=== PATIENT | female | born 1990 | race Caucasian/White ===

== ENCOUNTER 2016-04-27 12:09 | Outpatient (CLI) | payer BC, MEDICAID ==
--- NOTE | 2016-04-27 13:42 | Non Stress Test Report ---
Non Stress Test Datetime Report Generated by CPN: 04/27/2016 13:42 DEMOGRAPHIC Test Number: 1 EGA NST: 38.1 INDICATION Indication for Study: Ordered by Provider MONITORING Monitor Explained: Monitor Explained; Test Explained; Patient Verbalized Understanding Time on Monitor: 04/27/2016 12:26 Time off Monitor: 04/27/2016 13:32 NST Duration: 66 NST INTERVENTIONS NST Interventions: PO Hydration Physician Notified NST: K. Collins, CNM BABY A: [id number] BABY A Movement : Present Contraction Frequency : Occasional FHR Baseline : 130 Accelerations : 15X15 Decelerations : None Variability : Moderate 6-25bpm NST Review: Meets Criteria for Reactive NST NST Review and Verified By : Cliff Post RN NST Results: Reactive NST REPORT Report Trigger: Send Report
== END 2016-04-27 13:37 | disposition home or self-care (01) ==
LOC: LC 12:09
PROVIDERS: ATTEND Specialist
PROC: 4A1HXCZ Monitoring of Products of Conception, Cardiac Rate, External Approach (ICD-10-PCS; principal; 2016-04-27)
DX: O47.1 False labor at or after 37 completed weeks of gestation (principal); Z3A.38 38 weeks gestation of pregnancy
CPT/HCPCS: 59025

== ENCOUNTER 2016-05-09 22:26 | Outpatient (CLI) | payer BC, MEDICAID ==
[2016-05-09 22:52] LABS: APPEARANCE,URINE CLEAR; BILIRUBIN,URINE NEGATIVE (NEGATIVE); GLUCOSE, URINE NEGATIVE (NEGATIVE); KETONES,URINE NEGATIVE (NEGATIVE); LEUKOCYTE ESTERASE,URINE NEGATIVE (NEGATIVE); NITRITE,URINE NEGATIVE (NEGATIVE); PROTEIN,URINE NEGATIVE (NEGATIVE); URINE SPECIFIC GRAVITY 1.006; UROBILINOGEN,URINE NEGATIVE mg/dL (<2.0)
[2016-05-09 23:08] LABS: URINE BARBITURATES SCREEN NEGATIVE; URINE METHADONE SCREEN NEGATIVE; URINE OPIATES LOW NEGATIVE; URINE PHENCYCLIDINE SCREEN NEGATIVE
--- NOTE | 2016-05-10 00:15 | Non Stress Test Report ---
Non Stress Test Datetime Report Generated by CPN: 05/10/2016 00:15 DEMOGRAPHIC EGA NST: 39.6 INDICATION Indication for Study: Other Indication for Study (NST) Other: LC URINE RESULTS Urine Protein, NST: Negative Urine Ketones - NST: Negative Urine Glucose - NST: Negative Urine Blood - NST: Positive MONITORING Monitor Explained: Monitor Explained; Test Explained; Patient Verbalized Understanding Time on Monitor: 05/09/2016 22:45 Time off Monitor: 05/09/2016 23:45 NST Duration: 60 NST INTERVENTIONS NST Interventions: PO Hydration Physician Notified NST: Dr. Bedoya BABY A: [id number] BABY A Movement : Present Contraction Frequency : 4-6 FHR Baseline : 125 Accelerations : 15X15 Decelerations : None Variability : Moderate 6-25bpm NST Review: Meets Criteria for Reactive NST NST Review and Verified By : Ludwin Weaver RN NST Results: Reactive NST REPORT Report Trigger: Send Report
--- NOTE | 2016-05-10 04:45 | L&D Flow Sheet ---
LD Flowsheet Datetime Report Generated by CPN: 05/10/2016 04:45 Datetime: 05/09/2016 23:57 Communication Comments: pt. d/c to home at this time. See discharge summary for more information (Ирина Woodward, RN) Datetime: 05/09/2016 23:50 Communication Comments: Care notes taught and reviewed on kick counts and term labor instructions. Pt. able to perform teachback with no difficulties noted. Pt. denies any questions or concerns at this time (Ирина Woodward, RN) Datetime: 05/09/2016 23:45 Uterine Activity Monitor Mode: External (Ирина Trace, RN) Frequency (min): 4 (Ирина Trace, RN) Quality: Mild (Ирина Trace, RN) Duration (sec): 50-70 (Ирина Trace, RN) Duration Criteria: Less than Two 120 Second Contractions (Ирина Trace, RN) Pattern: Normal: <= 5 Contractions in 10 Minutes (Ирина Trace, RN) Resting Tone (Palpate): Relaxed (Ирина Trace, RN) Assessment A Monitor Mode: External US (Ирина Trace, RN) FHR Baseline Rate : 125 (Ирина Trace, RN) Variability: Moderate 6-25 bpm (Ирина Trace, RN) Accelerations: 15X15 (Ирина Trace, RN) Decelerations: None (Ирина Trace, RN) Communication Comments: pt. made aware of POC at this time. Second SVE deferred. Pt. denies need for pain medication at this time (Ирина Trace, RN) Datetime: 05/09/2016 23:34 Vital Signs Stage of : OB Triage (Ирина Trace, RN) Provider Reviewed Strip: Yes (Ирина Trace, RN) Communication Communication: Call/Page Placed to Provider (Ирина Woodward RN) Communication Comments: Dr. Bedoya called and notified regarding pt. arrival, hx, c/o, urine results, fht, toco tracing, and sve. New orders recieved that pt. may d/c to home with vistaril 50 mg po x1 dose if she desires. (Ирина Woodward RN) Datetime: 05/09/2016 23:15 Uterine Activity Monitor Mode: External; Palpation (Ирина Woodward, RN) Frequency (min): 5-6 (Ирина Woodward, RN) Quality: Mild (Ирина Woodward, RN) Duration (sec): 60-80 (Ирина Woodward RN) Duration Criteria: Less than Two 120 Second Contractions (Ирина Trace, RN) Pattern: Normal: <= 5 Contractions in 10 Minutes (Ирина Trace, RN) Resting Tone (Palpate): Relaxed (Ирина Trace, RN) Assessment A Monitor Mode: External US (Ирина Trace, RN) FHR Baseline Rate : 125 (Ирина Trace, RN) Variability: Moderate 6-25 bpm (Ирина Trace, RN) Accelerations: 15X15 (Ирина Trace, RN) Decelerations: None (Ирина Trace, RN) Datetime: 05/09/2016 22:49 Maternal Assessment Level of Consciousness: Fully Conscious (Ирина Trace, RN) DTR's/Clonus: DTRs 2+; No Clonus (Ирина Trace, RN) Headache: Denies (Ирина Trace, RN) Breath Sounds, Left: Clear and Equal (Ирина Trace, RN) Breath Sounds, Right: Clear and Equal (Ирина Trace, RN) Nausea/Vomiting: Denies (Ирина Trace, RN) RUQ Epigastric Pain: Denies (Ирина Trace, RN) Datetime: 05/09/2016 22:48 Contraction Comments: pt. reports one ctn noted here (Ирина Trace, RN) Datetime: 05/09/2016 22:47 NBP Sys/Erica/Mean (mmHg): 122 (QS system process) : 82 (QS system process) : 96 (QS system process) Pulse: 92 (QS system process) Temperature (F): 98.2 (Ирина Trace, RN) Temperature (C): 36.8 (QS system process) Temperature Route: Oral (Ирина Woodward, YIN) Teaching Instructional Method: Verbal; Patient Instructed (Ирина Woodward RN) Plan of Care: Plan of Care Discussed (Ирина Woodward RN) Unit Routine: [facility] to Room; Call Pollock; Bed; Visiting Policy (Ирина Woodward RN) Labor/Induction: Labor Stages (Ирина Woodward RN) LaborFlag: OB Triage (QS system process) Datetime: 05/09/2016 22:45 Pain Pain Scale: 2 (Ирина Woodward RN) Pain Presence: Intermittent (Ирина Woodward RN) Pain Type: Contraction (Ирина Woodward RN) Pain Location: Abdomen (Ирина Woodward, RN) Patient Care Patient Position/Activity: Left Lateral (Ирина Woodward RN) I/O Interventions: Clear Liquids Given (Иирна Woodward RN) Patient Care Comments: pt. came in c/o ctn's Q5 since 1699 reports pain 1.5/5 with ctn's (Ирина Woodward, YIN) Teaching Instructional Method: Verbal; Patient Instructed (Ирина Woodward RN) Plan of Care: Plan of Care Discussed (Ирина Woodward RN) Unit Routine: [facility] to Room; Call Pollock; Bed (Ирина Woodward RN) Labor/Induction: Labor Stages (Ирина Woodward RN) LaborFlag: OB Triage (QS system process) Datetime: 05/09/2016 22:42 Vaginal Exam Dilatation (cm): 1.0 (Ирина Trace, RN) Effacement (%): 80 (Ирина Trace, RN) Station: -2 (Ирина Trace, RN) Exam by: Jeff Woodward RN (Ирина Trace, RN) Vaginal Bleeding: None (Ирина Trace, RN) Cervix, Consistency: Soft (Ирина Trace, RN) Cervix, Position: Posterior (Ирина Trace, RN) Vaginal Exam Comments: bollatable, palp bag (Ирина Trace, RN) Datetime: 05/09/2016 22:40 Vital Signs Stage of : OB Triage (Ирина Woodward, YIN)
--- NOTE | 2016-05-10 04:46 | L&D Admission Assessment ---
LD ADM ASMT Datetime Report Generated by CPN: 05/10/2016 04:45 PATIENT ASSESSMENT Assessment Type: Triage (05/09/2016 22:49:Ирина Trace, RN) WEIGHT Weight (lb): 174 (05/09/2016 23:57:QS system process) Weight (lb): 174 (05/09/2016 22:37:QS system process) Weight (lb): 174 (05/09/2016 22:36:QS system process) Weight (kg): 79.1 (05/09/2016 23:57:QS system process) Weight (kg): 79.1 (05/09/2016 22:37:QS system process) Weight (kg): 79.1 (05/09/2016 22:36:QS system process) Total Wt Gain (lb): 28 (05/09/2016 23:57:QS system process) Total Wt Gain (lb): 28 (05/09/2016 22:37:QS system process) Total Wt Gain (lb): 28 (05/09/2016 22:36:QS system process) Wt Gain (kg): 12.6 (05/09/2016 23:57:QS system process) Wt Gain (kg): 12.6 (05/09/2016 22:37:QS system process) Wt Gain (kg): 12.6 (05/09/2016 22:36:QS system process) BMI: 29.9 (05/09/2016 23:57:QS system process) BMI: 29.9 (05/09/2016 22:37:QS system process) BMI: 30.8 (05/09/2016 22:36:QS system process) PAIN Pain Scale: 2 (05/09/2016 22:45:Ирина Woodward RN) Pain Presence: Intermittent (05/09/2016 22:45:Ирина Woodward RN) Pain Type: Contraction (05/09/2016 22:45:Ирина Woodward RN) Pain Location: Abdomen (05/09/2016 22:45:Ирина Woodward RN) CONTRACTIONS Frequency (min): 4 (05/09/2016 23:45:Ирина Trace, RN) Frequency (min): 5-6 (05/09/2016 23:15:Ирина Trace, RN) Duration (sec): 50-70 (05/09/2016 23:45:Ирина Trace, RN) Duration (sec): 60-80 (05/09/2016 23:15:Ирина Trace, RN) Quality: Mild (05/09/2016 23:45:Ирина Trace, RN) Quality: Mild (05/09/2016 23:15:Ирина Trace, RN) Pattern: Normal: <= 5 Contractions in 10 Minutes (05/09/2016 23:45:Ирина Trace, RN) Pattern: Normal: <= 5 Contractions in 10 Minutes (05/09/2016 23:15:Ирина Trace, RN) Resting Tone [place]: Relaxed (05/09/2016 23:45:Ирина Rtace, RN) Resting Tone [place]: Relaxed (05/09/2016 23:15:Ирина Trace, RN) Contraction Comments: pt. reports one ctn noted here (05/09/2016 22:48:Ирина Trace, RN) VAGINAL EXAM Dilatation (cm): 1.0 (05/09/2016 22:42:Ирина Trace, RN) Effacement (%): 80 (05/09/2016 22:42:Ирина Trace, RN) Station: -2 (05/09/2016 22:42:Ирина Trace, RN) NEURO Level of Consciousness: Fully Conscious (05/09/2016 22:49:Ирина Trace, RN) DTR's/Clonus: DTRs 2+; No Clonus (05/09/2016 22:49:Ирина Trace, RN) Headache: Denies (05/09/2016 22:49:Ирина Trace, RN) Dizziness: No (05/09/2016 22:49:Ирина Trace, RN) Blurred Vision: No (05/09/2016 22:49:Ирина Trace, RN) Extremity Numbness/Tingling : None (05/09/2016 22:49:Ирина Trace, RN) Extremity Movement: Full Range of Motion (05/09/2016 22:49:Ирина Trace, RN) CARDIOVASCULAR Heart Rhythm: Regular (05/09/2016 22:49:Ирина Woodward RN) Nailbeds: [place] (05/09/2016 22:49:Ирина Woodward RN) Capillary Refill: Less than 3 Seconds (05/09/2016 22:49:Ирина Woodward RN) Lower Extremities Edema: None (05/09/2016 22:49:Ирина Woodward RN) Lower Extremities Edema Degree: None (05/09/2016 22:49:Ирина Woodward RN) Upper Extremities Edema: None (05/09/2016 22:49:Ирина Woodward RN) Upper Extremities Edema Degree: None (05/09/2016 22:49:Ирина Woodward RN) Facial Edema: None (05/09/2016 22:49:Ирина Woodward RN) Joe's Sign Left Leg: Negative (05/09/2016 22:49:Ирина Woodward RN) Joe's Sign Right Leg: Negative (05/09/2016 22:49:Ирина Woodward RN) DVT RISK ASSESSMENT DVT Risk Age: Age less than 41 years (05/09/2016 22:49:Ирина Woodward RN) DVT Risk BMI: BMI<31 (05/09/2016 22:49:Ирина Woodward RN) DVT Risk Surgery: None Applicable (05/09/2016 22:49:Ирина Woodward RN) DVT Risk Other: Women Only- or (<1 month) (05/09/2016 22:49:Ирина Woodward RN) DVT Risk Total: 1 (05/09/2016 22:49:QS system process) DVT Risk Text: Low Risk (<10%) No specific measures, early ambulation (05/09/2016 22:49:QS system process) RESPIRATORY Respiratory Effort: Unlabored; Regular Rhythm (05/09/2016 22:49:Ирина Rocco, RN) Breath Sounds, Left: Clear and Equal (05/09/2016 22:49:Ирина Woodward, RN) Breath Sounds, Right: Clear and Equal (05/09/2016 22:49:Ирина Trace, RN) Cough Productivity: None (05/09/2016 22:49:Ирина Burgerco, RN) GASTROINTESTINAL Nausea/Vomiting: Denies (05/09/2016 22:49:Ирина Woodward RN) Bowel Sounds: Normoactive (05/09/2016 22:49:Иринаrehan Woodward RN) RUQ Epigastric Pain: Denies (05/09/2016 22:49:Ирина Woodward RN) Bowel Patterns: Soft, Formed Stool (05/09/2016 22:49:Ирина Rocco, RN) Hemorrhoids: None (05/09/2016 22:49:Иринаrehan Woodward RN) Diet Type: Regular diet (05/09/2016 22:49:Ирина Trace, RN) GENITOURINARY Bladder: Nondistended (05/09/2016 22:49:Иринаrehan Woodward RN) Frequency of Urination: No (05/09/2016 22:49:Иринаerhan Woodward RN) Urination Burning: No (05/09/2016 22:49:Иринаrehan Woodward RN) CVA Tenderness: No (05/09/2016 22:49:Иринаrehan Woodward RN) Vaginal Discharge Amount: Small (05/09/2016 22:49:Ирина Rocco, RN) Vaginal Discharge Color: White (05/09/2016 22:49:Иринаrehan Woodward RN) Vaginal Discharge Odor: Non-Odorous (05/09/2016 22:49:Иринаrehan Woodward RN) Vaginal Discharge Character: Thick (Annotations: pt. reports brown discharge earlier today) (05/09/2016 22:49:Ирина Trace, RN) INTEGUMENTARY Skin Color: Normal for Race (05/09/2016 22:49:Ирина Woodward RN) Skin Temperature: Warm (05/09/2016 22:49:Ирина Woodward RN) Skin Moisture: Dry (05/09/2016 22:49:Ирина Woodward, RN) RIMA SKIN ASSESSMENT Rima Scale Sensory Perception: No Impairment- Responds to verbal commands. Has no sensory deficit which would limit ability to feel or voice pain or discomfort (05/09/2016 22:49:Иирна Woodward RN) Rima Scale Moisture: Rarely Moist- Skin is usually dry. Linen only requires changing at routine intervals (05/09/2016 22:49:Ирина Woodward RN) Rima Scale Activity: Walks Frequently- Walks outside the room at least twice a day and inside room at least every 2 hours during the day. (05/09/2016 22:49:Ирина Woodward RN) Rima Scale Mobility: No Limitations- Makes major and frequent changes in position without assistance (05/09/2016 22:49:Ирина Woodward RN) Rima Scale Nutrition: Excellent- Eats most of every meal. Never refuses a meal. Usually eats a total of 4 or more servings of meat and dairy products. Occasionally eats between meals. Does not require supplementation (05/09/2016 22:49:Ирина Woodward RN) SUPPORT Family Support: Significant Other supportive, at bedside frequently (05/09/2016 22:49:Ирина Trace, RN) Emotional State: Calm/Relaxed (05/09/2016 22:49:Ирина Trace, RN) SAFETY Call Pollock Within Reach: Yes (05/09/2016 22:49:Ирина Trace, RN) Side Rails Up: Yes (05/09/2016 22:49:Ирина Trace, RN) Bed Wheels Locked: Yes (05/09/2016 22:49:Ирина Trace, RN) Arm Bands Present: Yes (05/09/2016 22:49:Ирина Trace, RN) FALL SCREEN Fall Risk History of Falling: (0) No (05/09/2016 22:49:Ирина Woodward RN) Fall Risk Secondary Diagnosis: (0) No (05/09/2016 22:49:Ирина Woodward RN) Fall Risk Ambulatory Aid: (0) None/Bedrest/Wheelchair/Nurse Assist (05/09/2016 22:49:Ирина Woodward RN) Fall Risk IV Therapy: (0) No (05/09/2016 22:49:Ирина Woodward RN) Fall Risk Gait: (0) Normal/Bedrest/Immobile (05/09/2016 22:49:Ирина Woodward RN) Fall Risk Mental Status: (0) Oriented to Own Ability (05/09/2016 22:49:Ирина Woodward RN) Fall Risk Score: 0 (05/09/2016 22:49:QS system process) Fall Risk Score Definition: No Risk: No action required (05/09/2016 22:49:QS system process) RECENT TRAVEL/INFECTIOUS DISEASE Recent Exp Communicable Disease: No (05/09/2016 22:49:Ирина Woodward RN) Cough or Fever: No (05/09/2016 22:49:Ирина Woodward RN) Foreign Travel Past 10 Days: No (05/09/2016 22:49:Ирина Woodward RN) Open Wounds or Sores: No (05/09/2016 22:49:Ирина Woodward RN) Prior Antibiotic Resistance Tx: No (05/09/2016 22:49:Ирина Woodward RN) Cultures Obtained: Not Applicable (05/09/2016 22:49:Ирина Woodward RN) Isolation Initiated: No (05/09/2016 22:49:Ирина Woodward RN) Pt/Family Education: Not Applicable (05/09/2016 22:49:Ирина Woodward RN) BABY A FHR Baseline Rate (bpm) Baby A: 125 (05/09/2016 23:45:Ирина Woodward RN) FHR Baseline Rate (bpm) Baby A: 125 (05/09/2016 23:15:Ирина Woodward RN) Variability Baby A: Moderate 6-25 bpm (05/09/2016 23:45:Ирина Woodward RN) Variability Baby A: Moderate 6-25 bpm (05/09/2016 23:15:Ирина Woodward RN) Accelerations Baby A: 15X15 (05/09/2016 23:45:Ирина Woodward RN) Accelerations Baby A: 15X15 (05/09/2016 23:15:Ирина Woodward RN) Decelerations Baby A: None (05/09/2016 23:45:Ирина Woodward RN) Decelerations Baby A: None (05/09/2016 23:15:Ирина Woodward RN)
--- NOTE | 2016-05-10 04:46 | L&D General Admission ---
General Admit Datetime Report Generated by CPN: 05/10/2016 04:45 INFORMATION Patient Age: 25 (04/27/2016 12:11:QS system process) EDC: 05/10/2016 00:00 (04/27/2016 12:12:Ibeth Griffin RN) : 1 (04/27/2016 12:12:Ibeth Griffin RN) Para: 0 (04/27/2016 12:12:Ibeth Griffin RN) Term: 0 (04/27/2016 12:12:Ibeth Griffin RN) : 0 (04/27/2016 12:12:Ibeth Griffin RN) Spontaneous Abortions: 0 (04/27/2016 12:12:Ibeth Griffin RN) Induced Abortions: 0 (04/27/2016 12:12:Ibeth Griffin RN) Livin (04/27/2016 12:12:Ibeth Griffin RN) Cesareans: 0 (04/27/2016 12:12:Ibeth Griffin RN) VBACs: 0 (04/27/2016 12:12:Ibeth Griffin RN) Ectopic: 0 (04/27/2016 12:12:Ibeth Griffin RN) Multiple Births: 0 (04/27/2016 12:12:Ibeth Griffin RN) Baby, Number in Womb: 1 (04/27/2016 12:12:Ibeth Griffin RN) CARE Primary Manager Property: [facility] (04/27/2016 12:12:Ibeth Griffin RN) Month of 1st Visit: 10/2015 (04/27/2016 12:12:Ibeth Griffin RN) Adequate Care: Yes (04/27/2016 12:12:Ibeth Griffin RN) Prepregnancy Weight (lb): 146 (04/27/2016 12:12:Ibeth Griffin RN) Prepregnancy Weight (kg): 66.4 (04/27/2016 12:12:QS system process) Height (in): 64 (05/09/2016 23:57:QS system process) Height (in): 64 (05/09/2016 22:37:QS system process) Height (in): 64 (05/09/2016 22:36:QS system process) Height (in): 63 (04/27/2016 13:21:QS system process) Height (in): 63 (04/27/2016 13:10:QS system process) Height (in): 63 (04/27/2016 12:33:QS system process) ALLERGIES Medication Allergy: No (04/27/2016 12:12:Ibeth Vitrano, RN) Medication Allergies: No Known Allergies (05/09/2016) (05/09/2016 22:36:QS system process) Medication Allergies: No Known Allergies (04/27/2016) (04/27/2016 12:33:QS system process) Latex Allergy: No Latex Allergies (04/27/2016 12:12:Ibeth Vitrano, RN) Food Allergies: N/A (04/27/2016 12:12:Ibeth Vitrano, RN) Environmental Allergies: N/A (04/27/2016 12:12:Ibeth Vitrano, RN) COMMUNICATION Primary Language: Bolivian (04/27/2016 12:12:Ibeth Vitrano, RN) Medical Tx Preferred Language: Bolivian (04/27/2016 12:12:Ibeth Vitrano, RN) DEMOGRAPHICS [facility] [place] [address] (04/27/2016 12:11:QS system process) Zipcode: [id number] (04/27/2016 12:11:QS system process) Home (04/27/2016 12:11:QS system process) Work (04/27/2016 12:11:QS system process) SSN: [id number] (04/27/2016 12:11:QS system process) Next of Kin Name: TRAV RAMIREZ (04/27/2016 12:11:QS system process) Next of Kin (04/27/2016 12:11:QS system process) Next of Kin Relationship: SPO (04/27/2016 12:11:QS system process) Date of : 1990 (04/27/2016 12:11:QS system process) Marital Status: (04/27/2016 12:11:QS system process) Sex: Female (04/27/2016 12:11:QS system process) Race: (04/27/2016 12:11:QS system process) Ethnicity: Non- or (04/27/2016 12:11:QS system process) Yarsanism: Druze (04/27/2016 12:11:QS system process) DRUG AND ALCOHOL USE Alcohol: No (04/27/2016 12:12:Ibeth Griffin RN) Cigarettes: Never Smoker. [id number] (04/27/2016 12:12:Ibethjeferson Griffin RN) Marijuana: No (04/27/2016 12:12:Ibethjeferson Griffin RN) Cocaine: No (04/27/2016 12:12:Ibeth Griffin RN) Other Illicit Drugs: No (04/27/2016 12:12:Ibethjeferson Griffin RN) VACCINE HISTORY Influenza Vaccine: No (04/27/2016 12:12:Ibethjeferson Griffin RN) Pneumococcal Vaccine: No (04/27/2016 12:12:Ibethjeferson Griffin RN) Tetanus Vaccine: Yes (04/27/2016 12:12:Ibeth Griffin RN) Tdap Vaccine: Yes (04/27/2016 12:12:Ibeth Griffin RN) Hepatitis B Vaccine: Yes (04/27/2016 12:12:Ibeth Griffin RN) Feeding Preference: Breast (04/27/2016 12:12:Ibeth Griffin RN) Benefit of Breast Feed Discussed: Yes (04/27/2016 12:12:Ibeth Griffin RN) Circumcision: Yes (04/27/2016 12:12:Ibeth Griffin RN) Classes Attended: No (04/27/2016 12:12:Ibeth Griffin RN) Tubal Ligation: No (04/27/2016 12:12:Ibeth Griffin RN) Tubal Authorization Signed: N/A (04/27/2016 12:12:Ibeth Griffin RN) Consent: N/A (04/27/2016 12:12:Ibeth Griffin RN) Consent Signed: N/A (04/27/2016 12:12:Ibeth Griffin RN) Pain Management Plans: Medications (04/27/2016 12:12:Ibeth Griffin RN) Plans for Labor and Delivery: None (04/27/2016 12:12:Ibeth Griffin RN) Support Person: Travis (04/27/2016 12:12:Ibeth Griffin RN) Support Person Relationship: (04/27/2016 12:12:Ibeth Griffin RN) Cultural/Spritual Practice: No (04/27/2016 12:12:Ibeth Griffin RN) Spir/Cult Dietary Needs: No (04/27/2016 12:12:Ibeth Griffin RN) LIVING SITUATION/DISCHARGE PLAN Living Arrangements: House (04/27/2016 12:12:Ibeth Griffin RN) Adequate Access to:: Electric; Heat; Refrigeration; Plumbing/Running water; Phone; Transportation (04/27/2016 12:12:Ibeth Griffin RN) WIC Program: Yes (04/27/2016 12:12:Ibeth Griffin RN) Discharge Jointer Operator Person: (04/27/2016 12:12:Ibeth Griffin RN) Person to Help after Discharge: (04/27/2016 12:12:Ibeth Griffin RN) Currently Using Commun Resources: Yes (04/27/2016 12:12:Ibeth Griffin RN) Specify Current Resource Used: Medicaid (04/27/2016 12:12:Ibeth Griffin RN) Outside Agency/Disk And Tape Machine Tender: No (04/27/2016 12:12:Ibeth Griffin RN) Car Seat for Discharge: Yes (04/27/2016 12:12:Ibeth Griffin RN) Adoption Requested: No (04/27/2016 12:12:Ibeth Griffin RN) Pt Contact w/infant Post : N/A (04/27/2016 12:12:Ibeth Griffin RN) LABS Blood Type: O Positive (04/27/2016 12:12:Ibeth Griffin RN) Antibody Screen: Negative (04/27/2016 12:12:Ibeth Griffin RN) Rho(G) this : Not Applicable (04/27/2016 12:12:Ibeth Griffin RN) Group Beta Strep: Negative (04/27/2016 12:12:Ibeth Griffin RN) Gonorrhea: Negative (04/27/2016 12:12:Ibeth Griffin RN) Chlamydia: Negative (04/27/2016 12:12:Ibeth Griffin RN) RPR/VDRL: Nonreactive (04/27/2016 12:12:Ibeth Griffin RN) HIV Exposure Test: Negative (04/27/2016 12:12:Ibeth Griffin RN) Hepatitis B: Negative (04/27/2016 12:12:Ibeth Griffin RN) Rubella: Immune (04/27/2016 12:12:Ibeth Griffin RN) OB/PREVIOUS HISTORY Current Procedures: None (04/27/2016 12:12:Ирина Woodward RN) History of Previous : No (04/27/2016 12:12:Ibeth Griffin RN) History of Gestational Diabetes: No (04/27/2016 12:12:Ibeth Griffin RN) History of PIH: No (04/27/2016 12:12:Ibeth Griffin RN) History of Incompetent Cervix: No (04/27/2016 12:12:Ibeth Griffin RN) History of Placenta Previa/Abrup: No (04/27/2016 12:12:Ibeth Griffin RN) History of Macrosomia: No (04/27/2016 12:12:Ibeth Griffin RN) History of IUGR: No (04/27/2016 12:12:Ibeth Griffin RN) History of Hemorrhage: No (04/27/2016 12:12:Ibeth Griffin RN) History of Loss/Stillborn: No (04/27/2016 12:12:Ibeth Griffin RN) History of : No (04/27/2016 12:12:Ibeth Griffin RN) History of D (Rh) Sensitization: No (04/27/2016 12:12:Ibeth Griffin RN) History Recurrent Loss/Stillborn: No (04/27/2016 12:12:Ibeth Griffin RN) History Depression/PP Depression: No (04/27/2016 12:12:Ibeth Griffin RN) History of Uterine Anomaly/VALERIA: No (04/27/2016 12:12:Ibeth Griffin RN) History of Infertility: No (04/27/2016 12:12:Ibeth Griffin RN) History of ART Treatment: No (04/27/2016 12:12:Ibeth Griffin RN) History of VALERIA: No (04/27/2016 12:12:Ibeth Griffin RN) Comments Obstetrical History: G1: Current (04/27/2016 12:12:Ibeth Griffin RN) MEDICAL HISTORY Med Hx Diabetes: No (04/27/2016 12:12:Ibeth Griffin RN) Med Hx Hypertension: No (04/27/2016 12:12:Ibeth Griffin RN) Med Hx Heart Disease: No (04/27/2016 12:12:Ibeth Griffin RN) Med Hx Autoimmune Disorder: No (04/27/2016 12:12:Ibeth Griffin RN) Med Hx Kidney Disease/UTI: No (04/27/2016 12:12:Ibeth Griffin RN) Med Hx Neurologic/Epilepsy: No (04/27/2016 12:12:Ibeth Griffin RN) Med Hx Psychiatric Disorders: No (04/27/2016 12:12:Ibeth Griffin RN) Med Hx Hepatitis/Liver Disease: No (04/27/2016 12:12:Ibeth Griffin RN) Med Hx Varicosities/Phlebitis: No (04/27/2016 12:12:Ibeth Griffin RN) Med Hx Thyroid Dysfunction: No (04/27/2016 12:12:Ibeth Griffin RN) Med Hx Trauma/Violence: No (04/27/2016 12:12:Ibeth Griffin RN) Med Hx Blood Transfusion: No (04/27/2016 12:12:Ibeth Griffin RN) Med Hx Pulmonary (Asthma,TB): No (04/27/2016 12:12:Ibeth Griffin RN) Med Hx Breast: No (04/27/2016 12:12:Ibeth Griffin RN) Med Hx ELECTRIC MULE OPERATOR Surgery: No (04/27/2016 12:12:Ibeth Griffin RN) Med Hx Hospitalization/Surgery: No (04/27/2016 12:12:Ibeth Griffin RN) Med Hx Anesthetic Complications: No (04/27/2016 12:12:Ibeth Griffin RN) Med Hx Abnormal Pap Smear: No (04/27/2016 12:12:Ibeth Griffin RN) Other Medical Diseases: No (04/27/2016 12:12:Ibeth Griffin RN) Med Hx Significant Family Hx: No (04/27/2016 12:12:Ibeth Griffin RN) INFECTIOUS HISTORY Inf Hx Gonorrhea: No (04/27/2016 12:12:Ibeth Griffin RN) Inf Hx Chlamydia: No (04/27/2016 12:12:Ibeth Griffin RN) Inf Hx Syphilis: No (04/27/2016 12:12:Ibeth Griffin RN) Inf Hx HIV/AIDS: No (04/27/2016 12:12:Ibeth Griffin RN) Inf Hx Human Papilloma Virus: No (04/27/2016 12:12:Ibeth Griffin RN) Inf Hx Pt/Partner Genital Herpes: No (04/27/2016 12:12:Ibeth Griffin RN) Inf Hx Tuberculosis/Exposure: No (04/27/2016 12:12:Ibeth Griffin RN) Inf Hx Hepatitis B,C: No (04/27/2016 12:12:Ibeth Griffin RN) Inf Hx Rash or Viral Illness: No (04/27/2016 12:12:Ibeth Griffin RN) GENETIC HISTORY Gen Hx Age >=35 at SARA: No (04/27/2016 12:12:Ibeth Griffin RN) Gen Hx Thalassemia: No (04/27/2016 12:12:Ibeth Griffin RN) Gen Hx Congenital Heart Defect: No (04/27/2016 12:12:Ibeth Griffin RN) Gen Hx Neural Tube Defect: No (04/27/2016 12:12:Ibeth Griffin RN) Gen Hx Down's Syndrome: No (04/27/2016 12:12:Ibeth Griffin RN) Gen Hx Sergio-Sachs: No (04/27/2016 12:12:Ibeth Griffin RN) Gen Hx Geovanna: No (04/27/2016 12:12:Ibeth Griffin RN) Gen Hx Familial Dysautonomia: No (04/27/2016 12:12:Ibeth Griffin RN) Gen Hx Sickle Cell Disease/Trait: No (04/27/2016 12:12:Ibeth Griffin RN) Gen Hx Hemophilia/Blood Disorder: No (04/27/2016 12:12:Ibeth Griffin RN) Gen Hx Muscular Dystrophy: No (04/27/2016 12:12:Ibeth Griffin RN) Gen Hx Cystic Fibrosis: No (04/27/2016 12:12:Ibeth Griffin RN) Gen Hx Huntingtons Chorea: No (04/27/2016 12:12:Ibeth Griffin RN) Gen Hx Mental Retardation/Autism: No (04/27/2016 12:12:Ibeth Griffin RN) Gen Hx Tested for Fragile X: No (04/27/2016 12:12:Ibeth Griffin RN) Gen Hx Other Inher/Chromosomal: No (04/27/2016 12:12:Ibeth Griffin RN) Gen Hx Maternal Metabolic DO: No (04/27/2016 12:12:Ibeth Griffin RN) Gen Hx Pt Father or FOB Defect: No (04/27/2016 12:12:Ibeth Griffin RN) Gen Hx Other Genetic History: No (04/27/2016 12:12:Ibeth Griffin RN) Gen Hx Drugs/Meds since LMP: No (04/27/2016 12:12:Ibeth Griffin RN)
--- NOTE | 2016-05-10 04:46 | L&D Discharge Summary ---
OB Discharge Summary Datetime Report Generated by CPN: 05/10/2016 04:45 DISCHARGE DIAGNOSIS Diagnosis/Symptoms: False Labor Gestation: 39.6 Number of Babies in Womb: 1 Parity: 0 DIET/ACTIVITY/RESTRICTIONS Diet: Regular Activity: Normal Activity TEACHING/INSTRUCTIONS/REFERRALS Instructions Given To: patient and sig other Instructions Understood: Patient Verbalized Understanding; Support Person Verbalized Understanding Referrals: None Educational Materials- Other: care notes on kick counts and the labor process DISCHARGE INFORMATION Discharged AMA: No Discharge Date/Time: 05/10/2016 23:57 Discharged To: Home Discharge Provider Name: Dr. Bedoya Accompanied By: sig other Discharge Method: Ambulatory Condition: Stable FOLLOW UP INFORMATION Follow Up With: [facility] Follow Up On: As Scheduled Follow Up Phone Number: [facility] - Comments: Pt. D/C to home ambulatory and in stable condition. Pt. states that her pain is manageable at this time and denies any need for further medical intevention. Pt. denies any questions or concerns prior to d/c. All personal belongings were taken with pt. prior to d/c. Pt. off unit and care relinquished at this time
--- NOTE | 2016-05-10 04:46 | Antepartum Discharge Summary ---
Antepartum DC Datetime Report Generated by CPN: 05/10/2016 04:45 DIET/ACTIVITY/RESTRICTIONS Diet: Regular (05/10/2016 00:14:Ирина Trace, RN) Activity: Normal Activity (05/10/2016 00:14:Ирина Trace, RN) TEACHING/INSTRUCTIONS/REFERRALS Instructions Given To: patient and sig other (05/10/2016 00:14:Ирина Trace, RN) Instructions Understood: Patient Verbalized Understanding; Support Person Verbalized Understanding (05/10/2016 00:14:Ирина Woodward RN) Referrals: None (05/10/2016 00:14:Ирина Woodward RN) Educational Materials- Other: care notes on kick counts and the labor process (05/10/2016 00:14:Ирина Woodward RN) DISCHARGE INFORMATION Discharged AMA: No (05/10/2016 00:14:Ирина Woodward RN) Discharge Date/Time: 05/10/2016 23:57 (05/10/2016 00:14:Ирина Woodward RN) Discharged To: Home (05/10/2016 00:14:Ирина Woodward RN) Discharge Provider Name: Dr. Bedoya (05/10/2016 00:14:Ирина Woodward RN) Accompanied By: lyndsey knott (05/10/2016 00:14:Ирина Woodward RN) Discharge Method: Ambulatory (05/10/2016 00:14:Ирина Woodward RN) Condition: Stable (05/10/2016 00:14:Ирина Woodward RN) FOLLOW UP INFORMATION Follow Up With: [facility] (05/10/2016 00:14:Ирина Woodward RN) Follow Up On: As Scheduled (05/10/2016 00:14:Ирина Woodward RN) Follow Up Phone Number: [facility] - (05/10/2016 00:14:Ирина Woodward RN) Comments: Pt. D/C to home ambulatory and in stable condition. Pt. states that her pain is manageable at this time and denies any need for further medical intevention. Pt. denies any questions or concerns prior to d/c. All personal belongings were taken with pt. prior to d/c. Pt. off unit and care relinquished at this time (05/10/2016 00:14:Ирина Woodward RN)
== END 2016-05-09 23:57 | disposition home or self-care (01) ==
LOC: LC 22:26
PROVIDERS: ATTEND Obstetrics & Gynecology
PROC: 4A1HXCZ Monitoring of Products of Conception, Cardiac Rate, External Approach (ICD-10-PCS; principal; 2016-05-09)
DX: O47.1 False labor at or after 37 completed weeks of gestation (principal); Z3A.39 39 weeks gestation of pregnancy
CPT/HCPCS: 59025; 80307; 81005

== ENCOUNTER 2016-05-10 11:57 | Outpatient (CLI) | payer BC, MEDICAID ==
[2016-05-10 12:41] LABS: APPEARANCE,URINE CLEAR; BILIRUBIN,URINE NEGATIVE (NEGATIVE); GLUCOSE, URINE NEGATIVE (NEGATIVE); KETONES,URINE NEGATIVE (NEGATIVE); LEUKOCYTE ESTERASE,URINE NEGATIVE (NEGATIVE); NITRITE,URINE NEGATIVE (NEGATIVE); PROTEIN,URINE NEGATIVE (NEGATIVE); URINE SPECIFIC GRAVITY 1.003; UROBILINOGEN,URINE NEGATIVE mg/dL (<2.0)
[2016-05-10 12:59] LABS: URINE BARBITURATES SCREEN NEGATIVE; URINE METHADONE SCREEN NEGATIVE; URINE OPIATES LOW NEGATIVE; URINE PHENCYCLIDINE SCREEN NEGATIVE
[2016-05-10] MEDS ORDERED: HYDROXYZINE PAMOATE 50 MG CAPSULE PO ONE (13:03)
[2016-05-10] MEDS ORDERED: HYDROXYZINE PAMOATE 50 MG CAPSULE ONE (13:06)
--- NOTE | 2016-05-10 13:14 | Non Stress Test Report ---
Non Stress Test Datetime Report Generated by CPN: 05/10/2016 13:14 DEMOGRAPHIC EGA NST: 40.0 INDICATION Indication for Study: Other Indication for Study (NST) Other: UC's MONITORING Monitor Explained: Monitor Explained; Test Explained; Patient Verbalized Understanding Time on Monitor: 05/10/2016 12:15 Time off Monitor: 05/10/2016 13:10 NST Duration: 55 NST INTERVENTIONS NST Interventions: None BABY A Movement : Present Contraction Frequency : 2-5 (Annotations: Data stored by N on behalf of user) FHR Baseline : 135 Accelerations : 15X15 Decelerations : None Variability : Moderate 6-25bpm NST Review: Meets Criteria for Reactive NST NST Review and Verified By : YIN Warren Results: Reactive NST REPORT Report Trigger: Send Report
== END 2016-05-10 13:17 | disposition home or self-care (01) ==
LOC: LC 11:57
PROVIDERS: ATTEND Specialist
PROC: 4A1HXCZ Monitoring of Products of Conception, Cardiac Rate, External Approach (ICD-10-PCS; principal; 2016-05-10)
DX: O47.1 False labor at or after 37 completed weeks of gestation (principal); Z3A.40 40 weeks gestation of pregnancy
CPT/HCPCS: 59025; 80307; 81005

== ENCOUNTER 2016-05-11 00:03 | Outpatient (CLI) | payer BC, MEDICAID ==
[2016-05-11 00:35] LABS: APPEARANCE,URINE SLIGHTLY-CLOUDY; BILIRUBIN,URINE NEGATIVE (NEGATIVE); GLUCOSE, URINE 50 mg/dL (NEGATIVE); KETONES,URINE NEGATIVE (NEGATIVE); LEUKOCYTE ESTERASE,URINE LARGE (NEGATIVE); NITRITE,URINE NEGATIVE (NEGATIVE); PROTEIN,URINE NEGATIVE (NEGATIVE); URINE SPECIFIC GRAVITY 1.006; UROBILINOGEN,URINE NEGATIVE mg/dL (<2.0)
[2016-05-11 00:44] LABS: AMNISURE (ROM) NEGATIVE (NEGATIVE)
[2016-05-11 00:50] LABS: URINE BARBITURATES SCREEN NEGATIVE; URINE METHADONE SCREEN NEGATIVE; URINE OPIATES LOW NEGATIVE; URINE PHENCYCLIDINE SCREEN NEGATIVE
[2016-05-11] MEDS ORDERED: ZOLPIDEM TARTRATE 5 MG TABLET ONE (02:04)
--- NOTE | 2016-05-11 02:42 | Non Stress Test Report ---
Non Stress Test Datetime Report Generated by CPN: 05/11/2016 02:42 DEMOGRAPHIC EGA NST: 40.1 INDICATION Indication for Study: Other Indication for Study (NST) Other: LC URINE RESULTS Urine Protein, NST: Negative Urine Ketones - NST: Negative Urine Glucose - NST: Positive Urine Blood - NST: Positive MONITORING Monitor Explained: Monitor Explained; Test Explained; Patient Verbalized Understanding Time on Monitor: 05/11/2016 00:21 Time off Monitor: 05/11/2016 01:53 NST Duration: 92 NST INTERVENTIONS NST Interventions: PO Hydration Physician Notified NST: Dr. Neilsen BABY A Movement : Present Contraction Frequency : 1.5-6 FHR Baseline : 125 Accelerations : 15X15 Decelerations : None Variability : Moderate 6-25bpm NST Review: Meets Criteria for Reactive NST NST Review and Verified By : Dylan Mcknight RN NST Results: Reactive NST REPORT Report Trigger: Send Report
[2016-05-11] MEDS ORDERED: ZOLPIDEM TARTRATE 5 MG TABLET PO ONE (02:43)
--- NOTE | 2016-05-11 04:46 | L&D Discharge Summary ---
OB Discharge Summary Datetime Report Generated by CPN: 05/11/2016 04:45 DISCHARGE DIAGNOSIS Diagnosis/Symptoms: False Labor Diagnoses/Symptoms Other: False Labor Gestation: 40.0 Number of Babies in Womb: 1 Parity: 0 DIET/ACTIVITY/RESTRICTIONS Diet: Regular Activity: Normal Activity TEACHING/INSTRUCTIONS/REFERRALS Instructions Given To: pt Instructions Understood: Patient Verbalized Understanding; Support Person Verbalized Understanding Referrals: None Educational Materials- Other: Patient declined educational materials. DISCHARGE INFORMATION Discharged AMA: No Discharge Date/Time: 05/11/2016 02:10 Discharged To: Home Discharge Provider Name: Dr Ibanez Accompanied By: Spouse Discharge Method: Ambulatory Condition: Stable FOLLOW UP INFORMATION Follow Up With: [facility] Follow Up On: As Scheduled Follow Up Phone Number: [facility] - Comments: Reviewed with patient to come back for contractions that are closer, more consistent, and stronger than they currently are. To return for decreased movement, leaking of fluid, or bleeding like a period. Patient without questions at this time. Given 10 mg ambien for comfort.
--- NOTE | 2016-05-11 04:46 | L&D Flow Sheet ---
LD Flowsheet Datetime Report Generated by CPN: 05/11/2016 04:45 Datetime: 05/11/2016 02:09 Analgesics/Sedatives: Ambien (mg) @ 10 (Cindy Mcknight, RN) Datetime: 05/11/2016 02:00 Stage of : Antepartum (Cindy Mcknight, RN) Respirations: 18 (Cindy Mcknight, RN) Temperature (F): 98.0 (Cindy Mcknight, RN) Temperature (C): 36.7 (QS system process) Pain Scale: 5 (Cindy Mcknight RN) Pain Presence: Intermittent (Cindy Mcknight RN) Pain Type: Contraction (Cindy Mcknight RN) Pain Location: Abdomen; Back (Cindy Mcknight RN) Pain Goal: 1 (Cindy Mcknight RN) Pain Relief Measures: Comfort Measures (Cindy Mcknight RN) Pain Coping: Breathing Through Contractions (Cindy Mcknight RN) Comfort Measures: Breathing/Relaxation; Family Support (Cindy Mcknight RN) Communication: RN at Bedside; RN Reviewed Strip (Cindy Mcknight RN) LaborFlag: Antepartum (QS system process) Datetime: 05/11/2016 01:53 I/O Interventions: Up to BR (Ирина Woodward RN) Datetime: 05/11/2016 01:50 Monitor Mode: External; Palpation (Ирина Woodward RN) Quality: Mild (Ирина Woodward RN) Duration (sec): 40-80 (Ирина Woodward RN) Duration Criteria: Less than Two 120 Second Contractions (Ирина Trace, RN) Pattern: Normal: <= 5 Contractions in 10 Minutes (Ирина Trace, RN) Resting Tone (Palpate): Relaxed (Ирина Trace, RN) Contraction Comments: unable to determine ctn frequency d/t pt. moving (Ирина Trace, RN) Monitor Mode: External US (Ирина Trace, RN) FHR Baseline Rate : 125 (Ирина Trace, RN) Variability: Moderate 6-25 bpm (Ирина Trace, RN) Accelerations: 15X15 (Ирина Trace, RN) Decelerations: None (Ириан Trace, RN) Datetime: 05/11/2016 01:47 Communication: Provider Orders Received (Cindy Mcknight RN) Communication Comments: Report given to Dr Shamar wilkinson: patient pain, contraction pattern, FHR status and cervical exams. Orders received to D/C home, given 10mg Ambien PO x 1 for comfort, F/U as scheduled, return PRN (Cindy Mcknight RN) Datetime: 05/11/2016 01:43 Dilatation (cm): 3.0 (Cindy Mcknight, RN) Effacement (%): 100 (Cindy Mcknight, RN) Station: -3 (Cindy Mcknight, RN) Exam by: Dylan Mcknight RN (Cindy Mcknight, RN) Membrane Status: Bulging (Cindy Mcknight, RN) Datetime: 05/11/2016 01:20 Monitor Mode: External (Ирина Trace, RN) Frequency (min): 3-6 (Ирина Trace, RN) Quality: Mild (Ирина Trace, RN) Duration (sec): 70-90 (Ирина Trace, RN) Duration Criteria: Less than Two 120 Second Contractions (Ирина Trace, RN) Pattern: Normal: <= 5 Contractions in 10 Minutes (Ирина Trace, RN) Resting Tone (Palpate): Relaxed (Ирина Trace, RN) Monitor Mode: External US (Ирина Trace, RN) FHR Baseline Rate : 120 (Ирина Trace, RN) Variability: Moderate 6-25 bpm (Ирина Trace, RN) Accelerations: 10X10 (Ирина Trace, RN) Decelerations: None (Ирина Trace, RN) Datetime: 05/11/2016 00:50 Monitor Mode: External; Palpation (Ирина Trace, RN) Frequency (min): 1.5-5 (Ирина Trace, RN) Quality: Mild (Ирина Trace, RN) Duration Criteria: Less than Two 120 Second Contractions (Ирина Trace, RN) Pattern: Normal: <= 5 Contractions in 10 Minutes (Ирина Trace, RN) Resting Tone (Palpate): Relaxed (Ирина Trace, RN) Monitor Mode: External US (Ирина Trace, RN) FHR Baseline Rate : 135 (Ирина Trace, RN) Variability: Moderate 6-25 bpm (Ирина Trace, RN) Accelerations: 10X10 (Ирина Trace, RN) Decelerations: None (Ирина Trace, RN) Datetime: 05/11/2016 00:26 Dilatation (cm): 3.0 (Cindy Mcknight, RN) Effacement (%): 100 (Cindy Mcknight, RN) Station: -2 (Cindy Mcknight, RN) Exam by: Dylan Mcknight RN (Cindy Mcknight, RN) Vaginal Bleeding: None (Cindy Mcknight, RN) Cervix, Consistency: Moderate (Cindy Mcknight, RN) Cervix, Position: Midposition (Cindy Mcknight, RN) Datetime: 05/11/2016 00:23 NBP Sys/Erica/Mean (mmHg): 142 (QS system process) : 93 (QS system process) : 112 (QS system process) Pulse: 96 (QS system process) LaborFlag: OB Triage (QS system process) Datetime: 05/11/2016 00:14 Frequency (min): every 1-3 minutes (Cindy Mcknight RN) Pain Scale: 5 (Cindy Mcknight, RN) Pain Presence: Intermittent (Cindy Mcknight, RN) Pain Type: Contraction (Cindy Mcknight, RN) Pain Location: Abdomen; Back (Cindy Mcknight, RN) Pain Goal: 1 (Cindy Mcknight, RN) Pain Relief Measures: Comfort Measures (Cindy Mcknight, RN) Pain Coping: Breathing Through Contractions (Cindy Mcknight, RN) Vaginal Bleeding: None (Cindy Mcknight, RN) Level of Consciousness: Fully Conscious (Cindy Mcknight, RN) DTR's/Clonus: DTRs 2+; No Clonus (Cindy Mcknight, RN) Headache: Denies (Cindy Mcknight RN) Breath Sounds, Left: Clear and Equal (Cindy Mcknight RN) Breath Sounds, Right: Clear and Equal (Cindy Mcknight RN) Nausea/Vomiting: Present (Annotations: nausea) (Cindy Mcknight RN) RUQ Epigastric Pain: Denies (Cindy Mcknight RN) LaborFlag: OB Triage (QS system process)
--- NOTE | 2016-05-11 04:46 | L&D Admission Assessment ---
LD ADM ASMT Datetime Report Generated by CPN: 05/11/2016 04:45 Assessment Type: Triage (05/11/2016 00:14:Cindy Mcknight RN) Assessment Type: Triage (05/10/2016 12:31:Roxana Green RN) Weight (lb): 172 (05/11/2016 00:13:QS system process) Weight (kg): 78.2 (05/11/2016 00:13:QS system process) Total Wt Gain (lb): 26 (05/11/2016 00:13:QS system process) Wt Gain (kg): 11.6 (05/11/2016 00:13:QS system process) BMI: 29.5 (05/11/2016 00:13:QS system process) Pain Scale: 5 (05/11/2016 02:00:Cindy Mcknight RN) Pain Scale: 5 (05/11/2016 00:14:Cindy Mcknight RN) Pain Scale: 4 (05/10/2016 12:31:Roxana Green RN) Pain Presence: Intermittent (05/11/2016 02:00:Cindy Mcknight RN) Pain Presence: Intermittent (05/11/2016 00:14:Cindy Mcknight RN) Pain Presence: Intermittent (05/10/2016 12:31:Roxana Green RN) Pain Type: Contraction (05/11/2016 02:00:Cindy Mcknight RN) Pain Type: Contraction (05/11/2016 00:14:Cindy Mcknight RN) Pain Type: Contraction (05/10/2016 12:31:Roxana Green RN) Pain Location: Abdomen; Back (05/11/2016 02:00:Cindy Mcknight RN) Pain Location: Abdomen; Back (05/11/2016 00:14:Cindy Mcknight RN) Pain Location: Abdomen (05/10/2016 12:31:Roxana Green RN) Pain Goal: 1 (05/11/2016 02:00:Cindy Mcknight RN) Pain Goal: 1 (05/11/2016 00:14:Cindy Mcknight RN) Pain Goal: 1 (05/10/2016 12:31:Roxana Green RN) Pain Related to Contraction: Yes (05/11/2016 00:14:Cindy Mcknight RN) Pain Related to Contraction: Yes (05/10/2016 12:31:Roxana Green RN) Frequency (min): 3-6 (05/11/2016 01:20:Ирина Woodward RN) Frequency (min): 1.5-5 (05/11/2016 00:50:Ирина Woodward RN) Frequency (min): every 1-3 minutes (05/11/2016 00:14:Cindy Mcknight RN) Frequency (min): 3-5 (05/10/2016 13:10:Roxana Green RN) Frequency (min): 2-5 (05/10/2016 12:45:Roxana Green RN) Frequency (min): 3-5 (05/10/2016 12:31:Roxana Green RN) Duration (sec): 40-80 (05/11/2016 01:50:Ирина Woodward RN) Duration (sec): 70-90 (05/11/2016 01:20:Ирина Woodward RN) Duration (sec): 70-120 (05/10/2016 13:10:Roxana Green RN) Duration (sec): 60-120 (05/10/2016 12:45:Roxana Green RN) Quality: Mild (05/11/2016 01:50:Ирина Woodward RN) Quality: Mild (05/11/2016 01:20:Ирина Woodward RN) Quality: Mild (05/11/2016 00:50:Ирина Woodward RN) Quality: Mild (05/10/2016 13:10:Roxana Green RN) Quality: Mild (05/10/2016 12:45:Roxana Green RN) Pattern: Normal: <= 5 Contractions in 10 Minutes (05/11/2016 01:50:Ирина Woodward RN) Pattern: Normal: <= 5 Contractions in 10 Minutes (05/11/2016 01:20:Ирина Woodward, RN) Pattern: Normal: <= 5 Contractions in 10 Minutes (05/11/2016 00:50:Ирина Woodward RN) Pattern: Normal: <= 5 Contractions in 10 Minutes (05/10/2016 13:10:Roxana Green RN) Pattern: Normal: <= 5 Contractions in 10 Minutes (05/10/2016 12:45:Roxana Green RN) Resting Tone [place]: Relaxed (05/11/2016 01:50:Ирина Woodward RN) Resting Tone [place]: Relaxed (05/11/2016 01:20:Ирина Woodward RN) Resting Tone [place]: Relaxed (05/11/2016 00:50:Ирина Woodward RN) Resting Tone [place]: Relaxed (05/10/2016 13:10:Roxana Green RN) Resting Tone [place]: Relaxed (05/10/2016 12:45:Roxana Green RN) Contraction Comments: unable to determine ctn frequency d/t pt. moving (05/11/2016 01:50:Ирина Woodward RN) Dilatation (cm): 3.0 (05/11/2016 01:43:Cindy Mcknight RN) Dilatation (cm): 3.0 (05/11/2016 00:26:Cindy Mcknight RN) Dilatation (cm): 1.5 (05/10/2016 12:31:Roxana Green RN) Effacement (%): 100 (05/11/2016 01:43:Cindy Mcknight RN) Effacement (%): 100 (05/11/2016 00:26:Cindy Mcknight RN) Effacement (%): 90 (05/10/2016 12:31:Roxana Green RN) Station: -3 (05/11/2016 01:43:Cindy Mcknight RN) Station: -2 (05/11/2016 00:26:Cindy Mcknight RN) Station: -2 (Annotations: head is ballotable, membranes palpable.) (05/10/2016 12:31:Roxana Green RN) Presentation on Admission: Vertex (05/10/2016 12:31:Roxana Green RN) Membranes Status: Bulging (05/11/2016 01:43:Cindy Mcknight RN) Membranes Status: Intact (05/10/2016 12:31:Roxana Green RN) Level of Consciousness: Fully Conscious (05/11/2016 00:14:Cindy Mcknight RN) Level of Consciousness: Fully Conscious (05/10/2016 12:31:Roxana Green RN) DTR's/Clonus: DTRs 2+; No Clonus (05/11/2016 00:14:Cindy Mcknight RN) DTR's/Clonus: DTRs 2+; No Clonus (05/10/2016 12:31:Roxana Green RN) Headache: Denies (05/11/2016 00:14:Cindy Mcknight RN) Headache: Frontal (05/10/2016 12:31:Roxana Green RN) Dizziness: No (05/11/2016 00:14:Cindy Mcknight RN) Dizziness: No (05/10/2016 12:31:Roxana Green RN) Blurred Vision: No (05/11/2016 00:14:Cindy Mcknight RN) Blurred Vision: No (05/10/2016 12:31:Roxana Green RN) Extremity Numbness/Tingling : None (05/11/2016 00:14:Cindy Mcknight RN) Extremity Numbness/Tingling : None (05/10/2016 12:31:Roxana Green RN) Extremity Movement: Full Range of Motion (05/11/2016 00:14:Cindy Mcknight RN) Extremity Movement: Full Range of Motion (05/10/2016 12:31:Roxana Green RN) Heart Rhythm: Regular (05/11/2016 00:14:Cindy Mcknight RN) Nailbeds: [place] (05/11/2016 00:14:Cindy Mcknight RN) Nailbeds: [place] (05/10/2016 12:31:Roxana Green RN) Capillary Refill: Less than 3 Seconds (05/11/2016 00:14:Cindy Mcknight RN) Capillary Refill: Less than 3 Seconds (05/10/2016 12:31:Roxana Green RN) Lower Extremities Edema: None (05/11/2016 00:14:Cindy Mcknight RN) Lower Extremities Edema: None (05/10/2016 12:31:Roxana Green RN) Lower Extremities Edema Degree: None (05/11/2016 00:14:Cindy Mcknight RN) Lower Extremities Edema Degree: None (05/10/2016 12:31:Roxana Green RN) Upper Extremities Edema: None (05/11/2016 00:14:Cindy Mcknight RN) Upper Extremities Edema: None (05/10/2016 12:31:Roxana Green RN) Upper Extremities Edema Degree: None (05/11/2016 00:14:Cindy Mcknight RN) Upper Extremities Edema Degree: None (05/10/2016 12:31:Roxana Green RN) Facial Edema: None (05/11/2016 00:14:Cindy Mcknight RN) Facial Edema: None (05/10/2016 12:31:Roxana Green RN) Joe's Sign Left Leg: Negative (05/11/2016 00:14:Cindy Mcknight RN) Joe's Sign Left Leg: Negative (05/10/2016 12:31:Roxana Green RN) Joe's Sign Right Leg: Negative (05/11/2016 00:14:Cindy Mcknight RN) Joe's Sign Right Leg: Negative (05/10/2016 12:31:Roxana Green RN) DVT Risk Age: Age less than 41 years (05/11/2016 00:14:Cindy Mcknight RN) DVT Risk BMI: BMI<31 (05/11/2016 00:14:Cindy Mcknight RN) DVT Risk Surgery: None Applicable (05/11/2016 00:14:Cindy Mcknight RN) DVT Risk Other: Women Only- or (<1 month) (05/11/2016 00:14:Cindy Mcknight RN) DVT Risk Total: 1 (05/11/2016 00:14:QS system process) DVT Risk Text: Low Risk (<10%) No specific measures, early ambulation (05/11/2016 00:14:QS system process) Respiratory Effort: Unlabored; Regular Rhythm; Equal Expansion (05/11/2016 00:14:Cindy Mcknight RN) Respiratory Effort: Unlabored; Regular Rhythm; Equal Expansion (05/10/2016 12:31:Roxana Green RN) Breath Sounds, Left: Clear and Equal (05/11/2016 00:14:Cindy Mcknight RN) Breath Sounds, Left: Clear and Equal (05/10/2016 12:31:Roxana Green RN) Breath Sounds, Right: Clear and Equal (05/11/2016 00:14:Cindy Mcknight RN) Breath Sounds, Right: Clear and Equal (05/10/2016 12:31:Roxana Green RN) Cough Productivity: None (05/11/2016 00:14:Cindy Mcknight RN) Cough Productivity: None (05/10/2016 12:31:Roxana Green RN) Nausea/Vomiting: Present (Annotations: nausea) (05/11/2016 00:14:Cindy Mcknight RN) Nausea/Vomiting: Denies (05/10/2016 12:31:Roxana Green RN) Bowel Sounds: Normoactive; All Quadrants (05/11/2016 00:14:Cindy Mcknight RN) Bowel Sounds: Normoactive; All Quadrants (05/10/2016 12:31:Roxana Green RN) RUQ Epigastric Pain: Denies (05/11/2016 00:14:Cindy Mcknight RN) RUQ Epigastric Pain: Denies (05/10/2016 12:31:Roxana Green RN) Bowel Patterns: Soft, Formed Stool (05/11/2016 00:14:Cindy Mcknight RN) Bowel Patterns: Soft, Formed Stool (05/10/2016 12:31:Roxana Green RN) Hemorrhoids: None (05/11/2016 00:14:Cindy Mcknight RN) Hemorrhoids: None (05/10/2016 12:31:Roxana Green RN) Diet Type: Regular diet (05/11/2016 00:14:Cindy Mcknight RN) Diet Type: Regular diet (05/10/2016 12:31:Roxana Green RN) Last Meal: 05/11/2016 21:00 (05/11/2016 00:14:Cindy Mcknight RN) Last Meal: 05/10/2016 09:00 (05/10/2016 12:31:Roxana Green RN) Bladder: Nondistended (05/11/2016 00:14:Cindy Mcknight RN) Bladder: Nondistended (05/10/2016 12:31:Roxana Green RN) Frequency of Urination: No (05/11/2016 00:14:Cindy Mcknight RN) Frequency of Urination: No (05/10/2016 12:31:Roxana Green RN) Urination Burning: No (05/11/2016 00:14:Cindy Mcknight RN) Urination Burning: No (05/10/2016 12:31:Roxana Green RN) CVA Tenderness: No (05/11/2016 00:14:Cindy Mcknight RN) CVA Tenderness: No (05/10/2016 12:31:Roxana Green RN) Vaginal Bleeding: None (05/11/2016 00:14:Cindy Mcknight RN) Vaginal Bleeding: None (05/10/2016 12:31:Roxana Green RN) Vaginal Discharge Amount: Small (05/11/2016 00:14:Cindy Mcknight RN) Vaginal Discharge Color: White (05/11/2016 00:14:Cindy Mcknight RN) Vaginal Discharge Color: N/A (05/10/2016 12:31:Roxana Green RN) Vaginal Discharge Odor: Non-Odorous (05/11/2016 00:14:Cindy Mcknight RN) Vaginal Discharge Character: Thin (05/11/2016 00:14:Cindy Mcknight RN) Skin Color: Normal for Race (05/11/2016 00:14:Cindy Mcknight RN) Skin Color: Normal for Race (05/10/2016 12:31:Roxana Green RN) Skin Temperature: Warm (05/11/2016 00:14:Cindy Mcknight RN) Skin Temperature: Warm (05/10/2016 12:31:Roxana Green RN) Skin Moisture: Dry (05/11/2016 00:14:Cindy Mcknight RN) Skin Moisture: Dry (05/10/2016 12:31:Roxana Green RN) Surgical Scars: none (05/11/2016 00:14:Cindy Mcknight RN) Body Piercings/Tattoos: piericins- ears tattoos- 7 (05/11/2016 00:14:Cindy Mcknight RN) Bakari Scale Sensory Perception: No Impairment- Responds to verbal commands. Has no sensory deficit which would limit ability to feel or voice pain or discomfort (05/11/2016 00:14:Cindy Mcknight RN) Bakari Scale Sensory Perception: No Impairment- Responds to verbal commands. Has no sensory deficit which would limit ability to feel or voice pain or discomfort (05/10/2016 12:31:Roxana Green RN) Bakari Scale Moisture: Rarely Moist- Skin is usually dry. Linen only requires changing at routine intervals (05/11/2016 00:14:Cindy Mcknight RN) Bakari Scale Moisture: Rarely Moist- Skin is usually dry. Linen only requires changing at routine intervals (05/10/2016 12:31:Roxana Green RN) Bakari Scale Activity: Walks Frequently- Walks outside the room at least twice a day and inside room at least every 2 hours during the day. (05/11/2016 00:14:Cindy Mcknight RN) Bakari Scale Activity: Walks Frequently- Walks outside the room at least twice a day and inside room at least every 2 hours during the day. (05/10/2016 12:31:Roxana Green RN) Bakari Scale Mobility: No Limitations- Makes major and frequent changes in position without assistance (05/11/2016 00:14:Cindy Mcknight RN) Bakari Scale Mobility: No Limitations- Makes major and frequent changes in position without assistance (05/10/2016 12:31:Roxana Green RN) Bakari Scale Nutrition: Excellent- Eats most of every meal. Never refuses a meal. Usually eats a total of 4 or more servings of meat and dairy products. Occasionally eats between meals. Does not require supplementation (05/11/2016 00:14:Cindy Mcknight RN) Bakari Scale Nutrition: Excellent- Eats most of every meal. Never refuses a meal. Usually eats a total of 4 or more servings of meat and dairy products. Occasionally eats between meals. Does not require supplementation (05/10/2016 12:31:Roxana Green RN) Bakari Scale Friction and Shear: No Apparent Problem- Moves in bed and in chair independently and has sufficient muscle strength to lift up completely during move. Maintains good position in bed or chair at all times (05/11/2016 00:14:Cindy Mcknight RN) Bakari Scale Friction and Shear: No Apparent Problem- Moves in bed and in chair independently and has sufficient muscle strength to lift up completely during move. Maintains good position in bed or chair at all times (05/10/2016 12:31:Roxana Green RN) Bakari Scale Total: 23 (05/11/2016 00:14:QS system process) Bakari Scale Total: 23 (05/10/2016 12:31:QS system process) Bakari Scale Risk: No Risk of Pressure Ulcer Noted at this Time (05/11/2016 00:14:QS system process) Bakari Scale Risk: No Risk of Pressure Ulcer Noted at this Time (05/10/2016 12:31:QS system process) Family Support: Significant Other supportive, at bedside frequently (05/11/2016 00:14:Cindy Mcknight RN) Family Support: Significant Other supportive, at bedside frequently (05/10/2016 12:31:Roxana Green RN) Emotional State: Calm/Relaxed (05/11/2016 00:14:Cindy Mcknight RN) Emotional State: Calm/Relaxed (05/10/2016 12:31:Roxana Green RN) Call [place] Within Reach: Yes (05/11/2016 00:14:Cindy Mcknight RN) Call [place]ock Within Reach: Yes (05/10/2016 12:31:Roxana Green RN) Side Rails Up: Yes (05/11/2016 00:14:Cindy Mcknight RN) Side Rails Up: Yes (05/10/2016 12:31:Roxana Green RN) Bed Wheels Locked: Yes (05/11/2016 00:14:Cindy Mcknight RN) Bed Wheels Locked: Yes (05/10/2016 12:31:Roxana Green RN) Arm Bands Present: Yes (05/11/2016 00:14:Cindy Mcknight RN) Arm Bands Present: Yes (05/10/2016 12:31:Roxana Green RN) Isolation: [place] (05/11/2016 00:14:Cindy Mcknight RN) Fall Risk History of Falling: (0) No (05/11/2016 00:14:Cindy Mcknight RN) Fall Risk History of Falling: (0) No (05/10/2016 12:31:Roxana Green RN) Fall Risk Secondary Diagnosis: (0) No (05/11/2016 00:14:Cindy Mcknight RN) Fall Risk Secondary Diagnosis: (0) No (05/10/2016 12:31:Roxana Green RN) Fall Risk Ambulatory Aid: (0) None/Bedrest/Wheelchair/Nurse Assist (05/11/2016 00:14:Cindy Mcknight RN) Fall Risk Ambulatory Aid: (0) None/Bedrest/Wheelchair/Nurse Assist (05/10/2016 12:31:Roxana Green RN) Fall Risk IV Therapy: (0) No (05/11/2016 00:14:Cindy Mcknight RN) Fall Risk IV Therapy: (0) No (05/10/2016 12:31:Roxana Green RN) Fall Risk Gait: (0) Normal/Bedrest/Immobile (05/11/2016 00:14:Cindy Mcknight RN) Fall Risk Gait: (0) Normal/Bedrest/Immobile (05/10/2016 12:31:Roxana Green RN) Fall Risk Mental Status: (0) Oriented to Own Ability (05/11/2016 00:14:Cindy Mcknight RN) Fall Risk Mental Status: (0) Oriented to Own Ability (05/10/2016 12:31:Roxana Green RN) Fall Risk Score: 0 (05/11/2016 00:14:QS system process) Fall Risk Score: 0 (05/10/2016 12:31:QS system process) Fall Risk Score Definition: No Risk: No action required (05/11/2016 00:14:QS system process) Fall Risk Score Definition: No Risk: No action required (05/10/2016 12:31:QS system process) Recent Exp Communicable Disease: No (05/11/2016 00:14:Cindy Mcknight RN) Cough or Fever: No (05/11/2016 00:14:Cindy Mcknight RN) Foreign Travel Past 10 Days: No (05/11/2016 00:14:Cindy Mcknight RN) Open Wounds or Sores: No (05/11/2016 00:14:Cindy Mcknight RN) Prior Antibiotic Resistance Tx: No (05/11/2016 00:14:Cindy Mcknight RN) Cultures Obtained: Not Applicable (05/11/2016 00:14:Cindy Mcknight RN) Isolation Initiated: No (05/11/2016 00:14:Cindy Mcknight RN) Pt/Family Education: Handwashing Hygiene (05/11/2016 00:14:Cindy Mcknight RN) FHR Baseline Rate (bpm) Baby A: 125 (05/11/2016 01:50:Ирина Woodward RN) FHR Baseline Rate (bpm) Baby A: 120 (05/11/2016 01:20:Ирина Woodward RN) FHR Baseline Rate (bpm) Baby A: 135 (05/11/2016 00:50:Ирина Woodward RN) FHR Baseline Rate (bpm) Baby A: 135 (05/10/2016 13:10:oRxana Green RN) FHR Baseline Rate (bpm) Baby A: 145 (05/10/2016 12:45:Roxana Green RN) Variability Baby A: Moderate 6-25 bpm (05/11/2016 01:50:Ирина Woodward RN) Variability Baby A: Moderate 6-25 bpm (05/11/2016 01:20:Ирина Woodward RN) Variability Baby A: Moderate 6-25 bpm (05/11/2016 00:50:Ирина Woodward RN) Variability Baby A: Moderate 6-25 bpm (05/10/2016 13:10:Roxana Green RN) Variability Baby A: Moderate 6-25 bpm (05/10/2016 12:45:Roxana Green RN) Accelerations Baby A: 15X15 (05/11/2016 01:50:Ирина Woodward RN) Accelerations Baby A: 10X10 (05/11/2016 01:20:Ирина Woodward RN) Accelerations Baby A: 10X10 (05/11/2016 00:50:Ирина Woodward RN) Accelerations Baby A: 15X15 (05/10/2016 13:10:Roxana Green RN) Accelerations Baby A: 15X15 (05/10/2016 12:45:Roxana Green RN) Decelerations Baby A: None (05/11/2016 01:50:Ирина Woodward RN) Decelerations Baby A: None (05/11/2016 01:20:Ирина Woodward RN) Decelerations Baby A: None (05/11/2016 00:50:Ирина Woodward RN) Decelerations Baby A: None (05/10/2016 13:10:Roxana Green RN) Decelerations Baby A: None (05/10/2016 12:45:Roxana Green RN)
--- NOTE | 2016-05-11 04:46 | Antepartum Discharge Summary ---
Antepartum DC Datetime Report Generated by CPN: 05/11/2016 04:45 Diet: Regular (05/11/2016 02:38:Cindy Mcknight RN) Diet: Regular (05/10/2016 13:15:Roxana Green RN) Activity: Normal Activity (05/11/2016 02:38:Cindy Mcknight RN) Activity: Normal Activity (05/10/2016 13:15:Roxnaa Green RN) Instructions Given To: pt (05/10/2016 13:15:Roxana Green RN) Instructions Understood: Patient Verbalized Understanding; Support Person Verbalized Understanding (05/10/2016 13:15:Roxana Green RN) Referrals: None (05/10/2016 13:15:Roxana Green RN) Educational Materials- Other: Patient declined educational materials. (05/11/2016 02:38:Cindy Mcknight RN) Educational Materials- Other: term care notes (05/10/2016 13:15:Roxana Green RN) Discharged AMA: No (05/11/2016 02:38:Cindy Mcknight RN) Discharged AMA: No (05/10/2016 13:15:Roxana Green RN) Discharge Date/Time: 05/11/2016 02:10 (05/11/2016 02:38:Cindy Mcknight RN) Discharge Date/Time: 05/10/2016 13:17 (05/10/2016 13:15:Roxana Green RN) Discharged To: Home (05/11/2016 02:38:Cindy Mcknight RN) Discharged To: Home (05/10/2016 13:15:Roxana Green RN) Discharge Provider Name: Dr Ibanez (05/11/2016 02:38:Cindy Mcknight RN) Discharge Provider Name: Dr Cr (05/10/2016 13:15:Roxana Green RN) Accompanied By: Spouse (05/11/2016 02:38:Cindy Mcknight RN) Accompanied By: (05/10/2016 13:15:Roxana Green RN) Discharge Method: Ambulatory (05/11/2016 02:38:Cindy Mcknight RN) Discharge Method: Ambulatory (05/10/2016 13:15:Roxana Green RN) Condition: Stable (05/11/2016 02:38:Cindy Mcknight RN) Condition: Stable (05/10/2016 13:15:Roxana Green RN) Follow Up With: [facility] (05/11/2016 02:38:Cindy Mcknight RN) Follow Up With: [facility] (05/10/2016 13:15:Roxana Green RN) Follow Up On: As Scheduled (05/11/2016 02:38:Cindy Mcknight RN) Follow Up On: As Scheduled (05/10/2016 13:15:Roxana Green RN) Follow Up Phone Number: [facility] - (05/11/2016 02:38:Cindy Mcknight RN) [facility] (05/10/2016 13:15:Roxana Green RN) Comments: Reviewed with patient to come back for contractions that are closer, more consistent, and stronger than they currently are. To return for decreased movement, leaking of fluid, or bleeding like a period. Patient without questions at this time. Given 10 mg ambien for comfort. (05/11/2016 02:38:Cindy Mcknight RN)
--- NOTE | 2016-05-11 04:46 | L&D General Admission ---
General Admit Datetime Report Generated by [facility]: 05/11/2016 04:45 Height (in): 64 (05/11/2016 00:13:QS system process) Medication Allergies: No Known Allergies (05/11/2016) (05/11/2016 00:13:QS system process) Medication Allergies: No Known Allergies (05/10/2016) (05/11/2016 00:04:QS system process) Address: [address] [place] [id number] (05/10/2016 11:57:QS system process)
--- NOTE | 2016-05-11 04:46 | L&D Current Admission ---
Current Admit Datetime Report Generated by [facility]: 05/11/2016 04:45 Chief Complaint: Contractions; Suspected Rupture of Membranes (05/11/2016 00:14:Cindy Mcknight RN) Chief Complaint: Contractions (05/10/2016 12:31:Roxana Green RN)
== END 2016-05-11 02:10 | disposition home or self-care (01) ==
LOC: LC 00:03
PROVIDERS: ATTEND Specialist
PROC: 4A1HXCZ Monitoring of Products of Conception, Cardiac Rate, External Approach (ICD-10-PCS; principal; 2016-05-11)
DX: O47.1 False labor at or after 37 completed weeks of gestation (principal); Z3A.40 40 weeks gestation of pregnancy
CPT/HCPCS: 59025; 80307; 81005; 84112

== ENCOUNTER 2016-05-11 10:53 | Inpatient (IN) | payer BC, MEDICAID ==
[2016-05-11 12:45] LABS: APPEARANCE,URINE CLOUDY; BILIRUBIN,URINE NEGATIVE (NEGATIVE); GLUCOSE, URINE NEGATIVE (NEGATIVE); KETONES,URINE NEGATIVE (NEGATIVE); LEUKOCYTE ESTERASE,URINE LARGE (NEGATIVE); NITRITE,URINE NEGATIVE (NEGATIVE); PROTEIN,URINE NEGATIVE (NEGATIVE); URINE SPECIFIC GRAVITY 1.008; UROBILINOGEN,URINE NEGATIVE mg/dL (<2.0)
[2016-05-11 13:15] LABS: URINE BARBITURATES SCREEN NEGATIVE; URINE METHADONE SCREEN NEGATIVE; URINE OPIATES LOW NEGATIVE; URINE PHENCYCLIDINE SCREEN NEGATIVE
[2016-05-11] MEDS ORDERED: EPHEDRINE SULFATE INJ 50 MG/1 ML AMPULE ONE (16:27)
[2016-05-11] MEDS ORDERED: PHENYLEPHRINE HCL INJ/PF 10 MG/1 ML SDV ONE (16:27)
[2016-05-11] MEDS ORDERED: FENTANYL CITRATE INJ/PF 100 MCG/2 ML AMPUL ONE (16:27)
[2016-05-11] MEDS ORDERED: FENTANYL/BUPIVACAINE/NS/PF 200 MCG/100 ML RTUINJ EPI ONE (16:28)
[2016-05-11] MEDS ORDERED: BUPIVACAINE HCL 0.25 % INJ/PF (2.5 MG/1 ML) 30 ML VIAL ONE (16:28)
[2016-05-11] MEDS ORDERED: KETOROLAC TROMETHAMINE INJ/PF 30 MG/1 ML SDV IV ONE (16:45)
[2016-05-11] MEDS ORDERED: OXYTOCIN/NORMAL SALINE 1,000 ML IV PRN ×2 (16:46→22:07)
[2016-05-11 17:02] LABS: ABSOLUTE NEUT (AUTO) 10.4 10^3/uL (1.7-8.2); BASOPHILS % (AUTO) 0.2 % (0-2); EOSINOPHILS % (AUTO) 0.2 % (0-6); HEMATOCRIT 34.9 % (36.0-47.0); HEMOGLOBIN 11.8 g/dL (12.0-15.5); HGB HCT DIFFERENCE 0.5; LYMPHOCYTES % (AUTO) 14.6 % (13-45); MEAN CORPUSCULAR HEMOGLOBIN 30.4 pg (27.0-33.4); MEAN CORPUSCULAR HGB CONC 33.9 g/dL (32.0-36.0); MEAN CORPUSCULAR VOLUME 90 fl (80-97); MONOCYTES % (AUTO) 7.2 % (3-13); RED BLOOD COUNT 3.89 10^6/uL (3.72-5.28); SEGMENTED NEUTROPHILS % (AUTO) 77.8 % (42-78); WHITE BLOOD COUNT 13.4 10^3/uL (4.0-10.5)
[2016-05-11 17:21] LABS: ALANINE AMINOTRANSFERASE 35 U/L (9-52); ALBUMIN 3.3 g/dL (3.5-5.0); ALKALINE PHOSPHATASE 192 U/L (38-126); ANION GAP 10 (5-19); ASPARTATE AMINO TRANSFERASE 22 U/L (14-36); BILIRUBIN,DIRECT 0.1 mg/dL (0.0-0.4); BILIRUBIN,TOTAL 0.6 mg/dL (0.2-1.3); BLOOD UREA NITROGEN 7 mg/dL (7-20); CALCIUM 9.4 mg/dL (8.4-10.2); CARBON DIOXIDE 20 mmol/L (22-30); CHLORIDE 107 mmol/L (98-107); CREATININE RESULT 0.65 mg/dL (0.52-1.25); GLUCOSE 85 mg/dL (75-110); LDH 400 U/L (313-618); SODIUM 136.7 mmol/L (137-145); TOTAL PROTEIN 6.2 g/dL (6.3-8.2); URIC ACID 4.6 mg/dL (2.5-6.2)
[2016-05-11] MEDS ORDERED: OXYTOCIN/NORMAL SALINE 20 UNIT/1,000 ML RTUINJ ONE ×2 (17:56→19:42)
[2016-05-11] MEDS ORDERED: LIDOCAINE 1% INJ-PF (10 MG/ML) 30 ML SDV ONE (19:42)
--- NOTE | 2016-05-11 20:01 | L&D Flow Sheet ---
LD Flowsheet Datetime Report Generated by CPN: 05/11/2016 20:00 Datetime: 05/11/2016 19:52 NBP Sys/Erica/Mean (mmHg): 157 (QS system process) : 101 (QS system process) : 120 (QS system process) Pulse: 130 (QS system process) LaborFlag: Antepartum (QS system process) Datetime: 05/11/2016 19:43 Communication Comments: Dr Metzger notified of pt pushing and asked to come to room. (Digna Elier, RN) Datetime: 05/11/2016 19:37 NBP Sys/Erica/Mean (mmHg): 118 (QS system process) : 76 (QS system process) : 92 (QS system process) Pulse: 118 (QS system process) LaborFlag: Antepartum (QS system process) Datetime: 05/11/2016 19:23 NBP Sys/Erica/Mean (mmHg): 147 (QS system process) : 90 (QS system process) : 112 (QS system process) Pulse: 108 (QS system process) LaborFlag: Antepartum (QS system process) Datetime: 05/11/2016 19:10 Temperature (F): 98.3 (Yodit Toribio, RN) Temperature (C): 36.8 (QS system process) Patient Care Comments: Report given to Ludwin Mcknight RN (Sharon Schultz RN) LaborFlag: Antepartum (QS system process) Datetime: 05/11/2016 19:09 Dilatation (cm): 8.5 (Yodit Toribio, RN) Effacement (%): 100 (Yodit Toribio, RN) Station: 0 (Yodit Toribio, RN) Exam by: ARoshni Toribio RN (Yodit Toribio, RN) Datetime: 05/11/2016 19:07 NBP Sys/Eriac/Mean (mmHg): 122 (QS system process) : 65 (QS system process) : 88 (QS system process) Pulse: 91 (QS system process) LaborFlag: Antepartum (QS system process) Datetime: 05/11/2016 19:00 Monitor Mode: External; Palpation (Sharon Broman, RN) Frequency (min): 2-3 (Sharon Broman, RN) Quality: Moderate (Sharon Broman, RN) Duration (sec): 60-90 (Sharon Broman, RN) Duration Criteria: Less than Two 120 Second Contractions (Sharon Broman, RN) Resting Tone (Palpate): Relaxed (Sharon Broman, RN) Contraction Comments: RN remains at bedside (Sharon Broman, RN) Monitor Mode: External US (Sharon Broman, RN) FHR Baseline Rate : 140 (Sharon Broman, RN) Variability: Moderate 6-25 bpm (Sharon Broman, RN) Accelerations: None (Sharon Broman, RN) Decelerations: None (Sharon Broman, RN) Pitocin (milliunit): Pitocin Remains (milliunits) @ 4 (Sharon Broman, RN) Datetime: 05/11/2016 18:53 NBP Sys/Erica/Mean (mmHg): 131 (QS system process) : 81 (QS system process) : 101 (QS system process) Pulse: 91 (QS system process) LaborFlag: Antepartum (QS system process) Datetime: 05/11/2016 18:45 Monitor Mode: External; Palpation (Sharon Broman, RN) Frequency (min): 2-3 (Sharon Broman, RN) Quality: Moderate (Sharon Broman, RN) Duration (sec): 60-90 (Sharon Broman, RN) Duration Criteria: Less than Two 120 Second Contractions (Sharon Broman, RN) Resting Tone (Palpate): Relaxed (Sharon Broman, RN) Contraction Comments: RN in room palpating contractions (Sharon Broman, RN) Monitor Mode: External US (Sharon Broman, RN) FHR Baseline Rate : 140 (Sharon Broman, RN) Variability: Moderate 6-25 bpm (Sharon Broman, RN) Accelerations: None (Sharon Broman, RN) Decelerations: None (Sharon Broman, RN) Pitocin (milliunit): Pitocin Remains (milliunits) @ 4 (Sharon Broman, RN) Datetime: 05/11/2016 18:38 NBP Sys/Erica/Mean (mmHg): 125 (QS system process) : 67 (QS system process) : 88 (QS system process) Pulse: 105 (QS system process) LaborFlag: Antepartum (QS system process) Datetime: 05/11/2016 18:32 Pitocin (milliunit): Pitocin Increased to (milliunits) @ 4 (Sharon Schultz RN) Datetime: 05/11/2016 18:30 Monitor Mode: External; Palpation (Sharon Schultz RN) Monitor Interventions for UA: [place] Adjusted (Sharon Schultz RN) Frequency (min): 2-3 (Sharon Schultz RN) Quality: Moderate (Sharon Schultz RN) Duration (sec): 60-90 (Sharon Schultz RN) Duration Criteria: Less than Two 120 Second Contractions (Sharon Schultz RN) Resting Tone (Palpate): Relaxed (Sharon Schultz RN) Contraction Comments: RN in room palpating contractions (Sharon Schultz RN) Monitor Mode: External US (Sharon Schultz RN) FHR Baseline Rate : 130 (Sharon Broman, RN) Variability: Moderate 6-25 bpm (Sharon Broman, RN) Accelerations: None (Sharon Broman, RN) Decelerations: None (Sharon Broman, RN) Pitocin (milliunit): Pitocin Remains (milliunits) @ 2 (Sharon Broman, RN) Pitocin (milliunit): Pitocin Remains (milliunits) @ 4 (Sharon Broman, RN) Datetime: 05/11/2016 18:22 NBP Sys/Erica/Mean (mmHg): 115 (QS system process) : 61 (QS system process) : 84 (QS system process) Pulse: 84 (QS system process) LaborFlag: Antepartum (QS system process) Datetime: 05/11/2016 18:15 Monitor Mode: External; Palpation (Sharon Broman, RN) Frequency (min): 3-5 (Sharon Broman, RN) Quality: Moderate (Sharon Broman, RN) Duration (sec): 70-120 (Sharon Broman, RN) Duration Criteria: Less than Two 120 Second Contractions (Sharon Broman, RN) Resting Tone (Palpate): Relaxed (Sharon Broman, RN) Monitor Mode: External US (Sharon Broman, RN) FHR Baseline Rate : 135 (Sharon Broman, RN) Variability: Moderate 6-25 bpm (Sharon Broman, RN) Accelerations: None (Sharon Broman, RN) Decelerations: None (Sharon Broman, RN) Pitocin (milliunit): Pitocin Remains (milliunits) @ 2 (Sharon Broman, RN) Datetime: 05/11/2016 18:13 NBP Sys/Erica/Mean (mmHg): 147 (QS system process) : 60 (QS system process) : 79 (QS system process) Pulse: 97 (QS system process) LaborFlag: Antepartum (QS system process) Datetime: 05/11/2016 18:09 NBP Sys/Erica/Mean (mmHg): 183 (QS system process) : 90 (QS system process) : 117 (QS system process) Pulse: 114 (QS system process) Patient Position/Activity: Left Tilt (Sharon Broman, RN) LaborFlag: Antepartum (QS system process) Datetime: 05/11/2016 18:07 Pitocin (milliunit): Pitocin Started (milliunits) @ 2 (Sharon Broman, RN) Datetime: 05/11/2016 18:00 Monitor Mode: External (Sharon Broman, RN) Frequency (min): 3-5 (Sharon Broman, RN) Quality: Moderate (Sharon Broman, RN) Duration (sec): 90-120 (Sharon Broman, RN) Duration Criteria: Less than Two 120 Second Contractions (Sharon Broman, RN) Resting Tone (Palpate): Relaxed (Sharon Broman, RN) Monitor Mode: External US (Sharon Broman, RN) FHR Baseline Rate : 135 (Sharon Broman, RN) Variability: Moderate 6-25 bpm (Sharon Broman, RN) Accelerations: None (Sharon Broman, RN) Decelerations: None (Sharon Broman, RN) Datetime: 05/11/2016 17:52 NBP Sys/Erica/Mean (mmHg): 115 (QS system process) : 75 (QS system process) : 89 (QS system process) Pulse: 98 (QS system process) LaborFlag: Antepartum (QS system process) Datetime: 05/11/2016 17:45 Monitor Mode: Palpation (Sharon Broman, RN) Frequency (min): 3-5 (Sharon Broman, RN) Quality: Moderate (Sharon Broman, RN) Duration Criteria: Less than Two 120 Second Contractions (Sharon Broman, RN) Resting Tone (Palpate): Relaxed (Sharon Broman, RN) Monitor Mode: External US (Sharon Broman, RN) FHR Baseline Rate : 135 (Sharon Broman, RN) Variability: Moderate 6-25 bpm (Sharon Broman, RN) Accelerations: None (Sharon Broman, RN) Decelerations: None (Sharon Broman, RN) Datetime: 05/11/2016 17:33 Temperature (F): 97.9 (Sharon Broman, RN) Temperature (C): 36.6 (QS system process) Pain Scale: 0 (Sharon Broman, RN) Pain Type: N/A (Sharon Broman, RN) Pain Location: Abdomen (Sharon Broman, RN) Pain Goal: 0 (Sharon Broman, RN) Pain Relief Measures: Epidural Given (Sharon Broman, RN) Comfort Measures: Breathing/Relaxation (Sharon Broman, RN) LaborFlag: Antepartum (QS system process) Datetime: 05/11/2016 17:32 NBP Sys/Erica/Mean (mmHg): 122 (QS system process) : 66 (QS system process) : 88 (QS system process) Pulse: 109 (QS system process) LaborFlag: Antepartum (QS system process) Datetime: 05/11/2016 17:31 Patient Position/Activity: Right Tilt (Sharon Broman, RN) Datetime: 05/11/2016 17:30 NBP Sys/Erica/Mean (mmHg): 131 (QS system process) NBP Sys/Erica/Mean (mmHg): 132 (QS system process) : 82 (QS system process) : 97 (QS system process) : 98 (QS system process) Pulse: 106 (QS system process) Pulse: 109 (QS system process) Quality: Mild/Moderate (Sharon Broman, RN) Resting Tone (Palpate): Relaxed (Sharon Broman, RN) Contraction Comments: unable to determine due to pt sitting up for epidural (Sharon Broman, RN) Monitor Mode: External US (Sharon Broman, RN) FHR Baseline Rate : 135 (Sharon Broman, RN) Variability: Moderate 6-25 bpm (Sharon Broman, RN) Accelerations: None (Sharon Broman, RN) Decelerations: None (Sharon Broman, RN) LaborFlag: Antepartum (QS system process) Datetime: 05/11/2016 17:28 NBP Sys/Erica/Mean (mmHg): 139 (QS system process) NBP Sys/Erica/Mean (mmHg): 142 (QS system process) : 69 (QS system process) : 70 (QS system process) : 97 (QS system process) : 96 (QS system process) Pulse: 108 (QS system process) Pulse: 109 (QS system process) I/O Interventions: Lopez Cath Inserted (Sharon Schultz RN) Patient Care Comments: inserted without difficulty, draining clear yellow urine, pt tolerated well (Sharon Schultz RN) LaborFlag: Antepartum (QS system process) Datetime: 05/11/2016 17:27 NBP Sys/Erica/Mean (mmHg): 136 (QS system process) : 81 (QS system process) : 101 (QS system process) LaborFlag: Antepartum (QS system process) Datetime: 05/11/2016 17:25 NBP Sys/Erica/Mean (mmHg): 136 (QS system process) : 84 (QS system process) : 83 (QS system process) : 105 (QS system process) : 102 (QS system process) Pulse: 111 (QS system process) Pulse: 96 (QS system process) LaborFlag: Antepartum (QS system process) Datetime: 05/11/2016 17:24 NBP Sys/Erica/Mean (mmHg): 134 (QS system process) : 86 (QS system process) : 100 (QS system process) Pulse: 110 (QS system process) Epidural Procedure: Loading Dose (Sharon Broman, RN) LaborFlag: Antepartum (QS system process) Datetime: 05/11/2016 17:22 NBP Sys/Erica/Mean (mmHg): 140 (QS system process) : 83 (QS system process) : 104 (QS system process) Pulse: 102 (QS system process) LaborFlag: Antepartum (QS system process) Datetime: 05/11/2016 17:21 NBP Sys/Erica/Mean (mmHg): 145 (QS system process) : 84 (QS system process) : 108 (QS system process) Pulse: 108 (QS system process) LaborFlag: Antepartum (QS system process) Datetime: 05/11/2016 17:20 NBP Sys/Erica/Mean (mmHg): 138 (QS system process) : 85 (QS system process) : 108 (QS system process) Pulse: 111 (QS system process) Pulse: 110 (QS system process) SpO2 (%): 99 (QS system process) Epidural Procedure: Cath Placed (Sharon Schultz RN) LaborFlag: Antepartum (QS system process) Datetime: 05/11/2016 17:19 NBP Sys/Erica/Mean (mmHg): 147 (QS system process) : 89 (QS system process) : 112 (QS system process) Pulse: 96 (QS system process) Procedure Verify: Correct Patient Identity; Correct Side and Site are Marked; Accurate Procedure Consent Form; Agreement on Procedure to be Done; Correct Patient Position (Sharon Schultz, RN) Anesthesia Plans: Epidural (Sharon Schultz, RN) Epidural Positioning: Sitting (Sharon Schultz, RN) Epidural Procedure: Test Dose (Sharonedwin Schultz, RN) LaborFlag: Antepartum (QS system process) Datetime: 05/11/2016 17:14 Procedure Verify: Correct Patient Identity (Sharon Schultz, RN) Anesthesia Plans: Epidural (Sharon Schultz, RN) Epidural Positioning: Sitting (Sharon Schultz, RN) Anesthesia Comments: Dr. Grimes at bedside (Sharon Bromdavid, RN) Datetime: 05/11/2016 17:09 Patient Care Comments: pt sitting up for epidural placement (Sharon Schultz, RN) Datetime: 05/11/2016 17:07 NBP Sys/Erica/Mean (mmHg): 145 (QS system process) : 93 (QS system process) : 111 (QS system process) Pulse: 109 (QS system process) LaborFlag: Antepartum (QS system process) Datetime: 05/11/2016 17:00 Monitor Mode: External (Sharon Broman, RN) Frequency (min): 2-4 (Sharon Broman, RN) Quality: Mild/Moderate (Sharon Broman, RN) Duration (sec): 60-90 (Sharon Broman, RN) Duration Criteria: Less than Two 120 Second Contractions (Sharon Broman, RN) Resting Tone (Palpate): Relaxed (Sharon Broman, RN) Monitor Mode: External US (Sharon Broman, RN) FHR Baseline Rate : 135 (Sharon Broman, RN) Variability: Moderate 6-25 bpm (Sharon Broman, RN) Accelerations: None (Sharon Broman, RN) Decelerations: None (Sharon Broman, RN) Datetime: 05/11/2016 16:59 Patient Position/Activity: Left Lateral; Peanut Ball (Sharon Broman, RN) Datetime: 05/11/2016 16:52 NBP Sys/Erica/Mean (mmHg): 140 (QS system process) : 75 (QS system process) : 101 (QS system process) Pulse: 92 (QS system process) LaborFlag: Antepartum (QS system process) Datetime: 05/11/2016 16:47 Patient Position/Activity: Left Extreme (Sharon Broman, RN) Datetime: 05/11/2016 16:45 NBP Sys/Erica/Mean (mmHg): 152 (QS system process) : 88 (QS system process) : 105 (QS system process) Pulse: 109 (QS system process) LaborFlag: Antepartum (QS system process) Datetime: 05/11/2016 16:38 NBP Sys/Erica/Mean (mmHg): 164 (QS system process) : 100 (QS system process) : 123 (QS system process) Pulse: 106 (QS system process) LaborFlag: Antepartum (QS system process) Datetime: 05/11/2016 16:30 Monitor Mode: External (Sharon Broman, RN) Frequency (min): 2-4 (Sharon Broman, RN) Quality: Mild/Moderate (Sharon Broman, RN) Duration (sec): 60-90 (Sharon Broman, RN) Duration Criteria: Less than Two 120 Second Contractions (Sharon Broman, RN) Resting Tone (Palpate): Relaxed (Sharon Broman, RN) Monitor Mode: External US (Sharon Broman, RN) FHR Baseline Rate : 135 (Sharon Broman, RN) Variability: Moderate 6-25 bpm (Sharon Broman, RN) Accelerations: 15X15 (Sharon Broman, RN) Decelerations: None (Sharon Broman, RN) Datetime: 05/11/2016 16:22 NBP Sys/Erica/Mean (mmHg): 146 (QS system process) : 93 (QS system process) : 114 (QS system process) Pulse: 108 (QS system process) LaborFlag: Antepartum (QS system process) Datetime: 05/11/2016 16:07 NBP Sys/Erica/Mean (mmHg): 152 (QS system process) : 98 (QS system process) : 119 (QS system process) Pulse: 113 (QS system process) LaborFlag: Antepartum (QS system process) Datetime: 05/11/2016 16:00 Monitor Mode: External (Sharon Broman, RN) Frequency (min): 3-4 (Sharon Broman, RN) Quality: Mild/Moderate (Sharon Broman, RN) Duration (sec): 80-120 (Sharon Broman, RN) Duration Criteria: Less than Two 120 Second Contractions (Sharon Broman, RN) Resting Tone (Palpate): Relaxed (Sharon Broman, RN) Monitor Mode: External US (Sharon Broman, RN) FHR Baseline Rate : 145 (Sharon Broman, RN) Variability: Minimal - Undetectable to <=5 bpm (Sharon Broman, RN) Accelerations: None (Sharon Broman, RN) Decelerations: None (Sharon Broman, RN) Datetime: 05/11/2016 15:52 NBP Sys/Erica/Mean (mmHg): 148 (QS system process) : 99 (QS system process) : 119 (QS system process) Pulse: 98 (QS system process) LaborFlag: Antepartum (QS system process) Datetime: 05/11/2016 15:43 Patient Position/Activity: Right Extreme (Sharon Broman, RN) Datetime: 05/11/2016 15:42 Patient Position/Activity: Tailors (Yodit Malu, RN) Datetime: 05/11/2016 15:41 Dilatation (cm): 4.0 (Yodit Toribio RN) Effacement (%): 100 (Yodit Toribio RN) Station: -1 (Yodit Toribio RN) Exam by: Walt Mueller CNM (Yodit Toribio, YIN) Membrane Status: Ruptured (Yodit Toribio RN) Membranes Rupture Method: Artificial (Yodit Toribio RN) Amniotic Fluid Color: Light Meconium (Yodit Toribio RN) Amniotic Fluid Amount: Moderate (Yodit Toribio RN) Amniotic Fluid Odor: Normal (Yodit Toribio, YIN) Datetime: 05/11/2016 15:39 Patient Care Comments: Walt Mueller CNM at bedside (Yodit Toribio, YIN) Datetime: 05/11/2016 15:38 NBP Sys/Erica/Mean (mmHg): 156 (QS system process) : 77 (QS system process) : 109 (QS system process) Pulse: 107 (QS system process) Procedure Verify: Correct Patient Identity (Yodit Toribio RN) Anesthesia Plans: Epidural (Yodit Toribio RN) Anesthesia Comments: LR bolus started (Yodit Malu, RN) LaborFlag: Antepartum (QS system process) Datetime: 05/11/2016 15:30 Monitor Mode: External (Sharon Broman, RN) Frequency (min): occasional (Sharon Broman, RN) Quality: Mild/Moderate (Sharon Broman, RN) Duration Criteria: Less than Two 120 Second Contractions (Sharon Broman, RN) Resting Tone (Palpate): Relaxed (Sharon Broman, RN) Monitor Mode: External US (Sharon Broman, RN) FHR Baseline Rate : 140 (Sharon Broman, RN) Variability: Moderate 6-25 bpm (Sharon Broman, RN) Accelerations: None (Sharon Broman, RN) Decelerations: None (Sharon Broman, RN) Datetime: 05/11/2016 15:29 Patient Position/Activity: Tailors (Yodit Malu, RN) Datetime: 05/11/2016 15:25 NBP Sys/Erica/Mean (mmHg): 136 (QS system process) : 92 (QS system process) : 109 (QS system process) Pulse: 102 (QS system process) LaborFlag: Antepartum (QS system process) Datetime: 05/11/2016 15:22 NBP Sys/Erica/Mean (mmHg): 143 (QS system process) : 101 (QS system process) : 117 (QS system process) Pulse: 109 (QS system process) LaborFlag: Antepartum (QS system process) Datetime: 05/11/2016 15:07 NBP Sys/Erica/Mean (mmHg): 143 (QS system process) : 93 (QS system process) : 113 (QS system process) Pulse: 120 (QS system process) LaborFlag: Antepartum (QS system process) Datetime: 05/11/2016 15:00 Monitor Mode: External (Sharon Broman, RN) Quality: Mild/Moderate (Sharon Broman, RN) Resting Tone (Palpate): Relaxed (Sharon Broman, RN) Contraction Comments: unable to determine, toco adjusted (Sharon Broman, RN) Monitor Mode: External US (Sharon Broman, RN) FHR Baseline Rate : 135 (Sharon Broman, RN) Variability: Moderate 6-25 bpm (Sharon Broman, RN) Accelerations: None (Sharon Broman, RN) Decelerations: None (Sharon Broman, RN) Communication Comments: Walt Mueller CNM on unit, informed of pt vital signs and pain rating 5/5. Order received to admit pt (Yodit Toribio, RN) Datetime: 05/11/2016 14:59 NBP Sys/Erica/Mean (mmHg): 137 (QS system process) : 98 (QS system process) : 112 (QS system process) Pulse: 113 (QS system process) LaborFlag: Antepartum (QS system process) Datetime: 05/11/2016 14:52 NBP Sys/Erica/Mean (mmHg): 134 (QS system process) : 119 (QS system process) : 124 (QS system process) Pulse: 113 (QS system process) LaborFlag: Antepartum (QS system process) Datetime: 05/11/2016 14:47 Patient Position/Activity: Right Lateral; Semi-Fowlers (Sharon Broman, RN) Datetime: 05/11/2016 14:37 NBP Sys/Erica/Mean (mmHg): 129 (QS system process) : 92 (QS system process) : 105 (QS system process) Pulse: 95 (QS system process) LaborFlag: Antepartum (QS system process) Datetime: 05/11/2016 14:33 Patient Care Comments: pt off monitor at this time to go to BR (Sharon Bromdavid, RN) Datetime: 05/11/2016 14:30 Monitor Mode: External; Palpation (Sharon Schultz, RN) Monitor Interventions for UA: [place] Adjusted (Sharon Broman, RN) Quality: Mild/Moderate (Sharon Broman, RN) Resting Tone (Palpate): Relaxed (Sharon Broman, RN) Contraction Comments: unable to determine d/t pt movement and position, TOCO adjusted (Sharon Broman, RN) Monitor Mode: External US (Sharonedwin Schultz, RN) FHR Baseline Rate : 130 (Sharon Broman, RN) Variability: Moderate 6-25 bpm (Sharon Broman, RN) Accelerations: 15X15 (Sharon Broman, RN) Decelerations: None (Sharon Broman, RN) Datetime: 05/11/2016 14:22 NBP Sys/Erica/Mean (mmHg): 113 (QS system process) : 69 (QS system process) : 86 (QS system process) Pulse: 89 (QS system process) LaborFlag: Antepartum (QS system process) Datetime: 05/11/2016 14:19 Patient Position/Activity: Left Tilt; Semi-Fowlers (Sharon Broman, RN) Datetime: 05/11/2016 14:11 NBP Sys/Erica/Mean (mmHg): 134 (QS system process) : 95 (QS system process) : 110 (QS system process) Pulse: 98 (QS system process) Medication Comments: D5LR bolus started with IV start (Sharon Schultz RN) IV/Blood Work: IV Started (Sharon Schultz RN) Patient Care Comments: 18 ga to Left FA (Sharon Schultz RN) LaborFlag: Antepartum (QS system process) Datetime: 05/11/2016 14:01 Dilatation (cm): 4.0 (Sharon Schultz, YIN) Effacement (%): 70 (Sharon Schultz RN) Station: -2 (Sharon Schultz RN) Exam by: Jean Toribio RN/Merlin Schultz RN (Sharon Schultz, YIN) Communication Comments: Walt Mueller CNM on unit, assessed FHR strip, D5LR bolus ordered at this time and ordered pt to eat (Sharon Schultz RN) Datetime: 05/11/2016 13:59 Monitor Mode: External (Sharon Broman, RN) Monitor Interventions for UA: [place] Adjusted (Sharon Broman, RN) Quality: Mild/Moderate (Sharon Broman, RN) Resting Tone (Palpate): Relaxed (Sharon Broman, RN) Contraction Comments: unable to assess due to patient movement, adjusted toco (Sharon Broman, RN) Monitor Mode: External US (Sharon Broman, RN) FHR Baseline Rate : 140 (Sharon Broman, RN) Variability: Moderate 6-25 bpm (Sharon Broman, RN) Accelerations: None (Sharon Broman, RN) Decelerations: None (Sharon Broman, RN) Datetime: 05/11/2016 13:52 NBP Sys/Erica/Mean (mmHg): 140 (QS system process) : 84 (QS system process) : 99 (QS system process) Pulse: 110 (QS system process) LaborFlag: Antepartum (QS system process) Datetime: 05/11/2016 13:37 NBP Sys/Erica/Mean (mmHg): 121 (QS system process) : 74 (QS system process) : 92 (QS system process) Pulse: 96 (QS system process) Patient Position/Activity: Right Extreme (Sharon Schultz RN) Patient Care Comments: pt placed back on monitor after walking for 1 hr (Sharon Schultz RN) LaborFlag: Antepartum (QS system process) Datetime: 05/11/2016 12:26 Patient Care Comments: monitors disconnected for pt to ambulated for 1 hr (Sharon Schultz RN) Datetime: 05/11/2016 12:15 Monitor Mode: External; Palpation (Sharon Schultz RN) Monitor Interventions for UA: [place] Adjusted (Sharon Schultz RN) Frequency (min): irregular (Sharon Schultz RN) Quality: Mild/Moderate (Sharon Schultz RN) Duration Criteria: Less than Two 120 Second Contractions (Sharon Schultz RN) Resting Tone (Palpate): Relaxed (Sharon Schultz RN) Contraction Comments: difficult to trace due to pt moving and position (Sharon Schultz RN) Monitor Mode: External US (Sharon Schultz RN) FHR Baseline Rate : 130 (Sharon Broman, RN) Variability: Moderate 6-25 bpm (Sharon Broman, RN) Accelerations: 15X15 (Sharon Broman, RN) Decelerations: None (Sharon Broman, RN) Datetime: 05/11/2016 12:14 NBP Sys/Erica/Mean (mmHg): 133 (QS system process) : 87 (QS system process) : 106 (QS system process) Pulse: 95 (QS system process) LaborFlag: Antepartum (QS system process) Datetime: 05/11/2016 12:02 Patient Care Comments: Pt given Peanut Butter and [place] (Sharon Broman, RN) Datetime: 05/11/2016 12:00 Monitor Mode: External (Sharon Broman, RN) Monitor Interventions for UA: [place] Adjusted (Sharon Broman, RN) Frequency (min): occasional (Sharon Broman, RN) Quality: Mild/Moderate (Sharon Broman, RN) Duration (sec): 60-90 (Sharon Broman, RN) Duration Criteria: Less than Two 120 Second Contractions (Sharon Broman, RN) Pattern: Normal: <= 5 Contractions in 10 Minutes (Sharon Broman, RN) Resting Tone (Palpate): Relaxed (Sharon Broman, RN) Monitor Mode: External US (Sharon Broman, RN) FHR Baseline Rate : 135 (Sharon Broman, RN) Variability: Moderate 6-25 bpm (Sharon Broman, RN) Accelerations: None (Sharon Broman, RN) Decelerations: None (Sharon Broman, RN) Datetime: 05/11/2016 11:59 NBP Sys/Erica/Mean (mmHg): 107 (QS system process) : 69 (QS system process) : 82 (QS system process) Pulse: 74 (QS system process) LaborFlag: Antepartum (QS system process) Datetime: 05/11/2016 11:53 Patient Position/Activity: Left Extreme (Sharon Broman, RN) Datetime: 05/11/2016 11:45 Monitor Mode: External (Sharon Broman, RN) Frequency (min): 6-7 (Sharon Broman, RN) Quality: Mild/Moderate (Sharon Broman, RN) Duration (sec): 60-90 (Sharon Broman, RN) Duration Criteria: Less than Two 120 Second Contractions (Sharon Broman, RN) Pattern: Normal: <= 5 Contractions in 10 Minutes (Sharon Broman, RN) Resting Tone (Palpate): Relaxed (Sharon Broman, RN) Monitor Mode: External US (Sharon Broman, RN) FHR Baseline Rate : 130 (Sharon Broman, RN) Variability: Moderate 6-25 bpm (Sharon Broman, RN) Accelerations: None (Sharon Broman, RN) Decelerations: None (Sharon Broman, RN) Datetime: 05/11/2016 11:44 NBP Sys/Erica/Mean (mmHg): 132 (QS system process) : 87 (QS system process) : 105 (QS system process) Pulse: 90 (QS system process) LaborFlag: Antepartum (QS system process) Datetime: 05/11/2016 11:35 Monitor Interventions for UA: [place] Adjusted (Yodit Maul, RN) Monitor Interventions for FHR: Ultrasound Adjusted (Yodit Malu, RN) Patient Position/Activity: Right Lateral (Yodit Malu, RN) Datetime: 05/11/2016 11:30 Monitor Mode: External; Palpation (Sharon Broman, RN) Monitor Interventions for UA: [place] Adjusted (Sharon Broman, RN) Frequency (min): x1 (Sharon Broman, RN) Quality: Mild/Moderate (Sharon Broman, RN) Duration Criteria: Less than Two 120 Second Contractions (Sharon Broman, RN) Pattern: Normal: <= 5 Contractions in 10 Minutes (Sharon Broman, RN) Resting Tone (Palpate): Relaxed (Sharon Schultz RN) Contraction Comments: at bedside, mild contraction palpated (Sharon Schultz RN) Monitor Mode: External US (Sharon Schultz RN) FHR Baseline Rate : 130 (Sharon Schultz RN) Variability: Moderate 6-25 bpm (Sharon Schultz, RN) Accelerations: None (Sharon Schultz, RN) Decelerations: None (Sharon Schultz, RN) Datetime: 05/11/2016 11:21 Monitor Interventions for UA: [place] Adjusted (Sharon Schultz RN) Frequency (min): patient states 3-5 (Sharon Schultz RN) Monitor Mode: External US (Sharon Schultz RN) Pain Scale: 4 (Sharon Schultz RN) Pain Presence: Intermittent (Sharon Schultz RN) Pain Type: Cramping; Pressure (Sharon Schultz RN) Pain Location: Abdomen (Sharon Schultz RN) Pain Goal: 0 (Sharon Schultz RN) Pain Relief Measures: Comfort Measures (Sharon Schultz RN) Pain Coping: Talking Through Contractions (Sharon Schultz RN) Membrane Status: Intact (Sharon Schultz RN) Vaginal Bleeding: Normal Show (Sharon Schultz RN) Level of Consciousness: Fully Conscious (Sharon Schultz RN) DTR's/Clonus: DTRs 2+; No Clonus (Sharon Schultz RN) Headache: Denies (Sharon Schultz RN) Breath Sounds, Left: Clear and Equal (Sharon Schultz RN) Breath Sounds, Right: Clear and Equal (Sharon Schultz RN) Nausea/Vomiting: Denies (Sharon Schultz RN) RUQ Epigastric Pain: Denies (Sharon Schultz, RN) Comfort Measures: Breathing/Relaxation; Family Support (Sharon Schultz, RN) Instructional Method: Verbal (Sharon Schultz RN) Plan of Care: Plan of Care Discussed; Vaginal Delivery; Labor; Gestational Hypertension/Preeclampsia/Eclampsia (Sharon Schultz, RN) Unit Routine: [place] to Room; Call [place]; Bed; Visiting Policy; Waiting Areas; Infant Security; Phone/Cell Phone Use; Photography; Unit Personnel; Consents Signed; Handwashing; Flu/Illness Precautions; Monitoring; IV Pumps; Safety/Fall Risk Prevention; Diet/Nutrition Services; Bathroom Privileges; Medications (Sharon Schultz, RN) Labor/Induction: Labor Stages; Artificial Rupture of Membranes (Sharon Schultz, RN) Pain Management: Epidural (Sharon Schultz RN) Related: Common Discomforts of ; Maternal Physical Changes; Maternal Emotional Changes; Nutrition; Hydration; Activity and Rest (Sharon Schultz, RN) LaborFlag: Antepartum (QS system process) Datetime: 05/11/2016 11:18 I/O Interventions: Popsicle; Clear Liquids Given (Sharon Schultz RN) Datetime: 05/11/2016 11:13 NBP Sys/Erica/Mean (mmHg): 130 (QS system process) : 88 (QS system process) : 104 (QS system process) Pulse: 105 (QS system process) LaborFlag: Antepartum (QS system process) Datetime: 05/11/2016 11:09 Communication Comments: Walt Mueller CNMonster on unit, order received to obtain reactive NST then have pt ambulate for 2 hrs (Sharon Schultz RN)
[2016-05-11] MEDS ORDERED: PSEUDOEPHEDRINE HCL 30 MG TABLET PO PRN (22:07)
[2016-05-11] MEDS ORDERED: MAGNESIUM HYDROXIDE SUSP 30 ML UDCUP PO PRN (22:07)
[2016-05-11] MEDS ORDERED: NA PHOS,M-B/NA PHOS,DI-BA (ADULT) 133 ML ENEMA PR PRN (22:07)
[2016-05-11] MEDS ORDERED: ACETAMINOPHEN 650 MG SUPP.RECT PR PRN (22:07)
[2016-05-11] MEDS ORDERED: DIPHENHYDRAMINE HCL 25 MG CAPSULE PO PRN (22:07)
[2016-05-11] MEDS ORDERED: PROMETHAZINE HCL INJ 25 MG/1 ML VIAL IV PRN (22:07)
[2016-05-11] MEDS ORDERED: DIPH/PERTUSS(ACELL)/TETANUS VAC/PF 0.5 ML SYR (>=10YO) IM PRN (22:07)
[2016-05-11] MEDS ORDERED: PROMETHAZINE HCL 25 MG TABLET PO PRN (22:07)
[2016-05-11] MEDS ORDERED: DIBUCAINE 1% OINTMENT 28 GM TP PRN (22:07)
[2016-05-11] MEDS ORDERED: ACETAMINOPHEN WITH CODEINE #3 TABLET PO PRN ×2 (22:07)
[2016-05-11] MEDS ORDERED: ZOLPIDEM TARTRATE 5 MG TABLET PO PRN (22:07)
[2016-05-11] MEDS ORDERED: GLYCERIN/WITCH HAZEL LEAF 1 EACH MED..PAD TP PRN (22:07)
[2016-05-11] MEDS ORDERED: BENZOCAINE/MENTHOL AEROSOL SPRAY 56 ML TOP PRN (22:07)
[2016-05-11] MEDS ORDERED: PROMETHAZINE HCL 25 MG SUPP.RECT PR PRN (22:07)
[2016-05-11] MEDS ORDERED: MEASLES,MUMPS&RUBELLA VACC/PF 0.5 ML VIAL SUBCUT PRN (22:07)
[2016-05-11] MEDS ORDERED: IBUPROFEN 800 MG TABLET ONE (23:50)
--- NOTE | 2016-05-11 23:58 | Delivery Summary ---
Del Sum A-C Datetime Report Generated by CPN: 05/11/2016 23:57 ADMISSION DATA Chief Complaint: Uterine Contractions; Signs/Symptoms Gestational HTN Indication for Induction: Gest. HTN/PreEclampsia/Eclampsia Admission Impression: Term, Intrauterine ; Induction of Labor Admit Provider Comments: 25yo O pos, [place], GBS neg admitted into L_D with prodormal labor and elevated BPs. Labor augment protocol and AROM per Dr. Metzger. [facility] labs to be drawn on admission. Pt. with positve urine culture for strep viridans at NOB with Neg NANCY consulted with PLANT ETIOLOGIST and no treatment for GBS in labor. DELIVERY PERSONNEL Delivery Doctor:: Wong Metzger MD Labor and Delivery Nurse:: Cindy Mcknight RN Nursery Nurse:: Erin Jeff RN Nursery Nurse:: Ibeth Bennett RN Product Assembler/DATA ANALYST REPORT WRITER: Azul Leigh, ST MATERNAL INFORMATION Delivery Anesthesia: Epidural Medications After Delivery: Pitocin Drip 20 Units/1000ml NSS Estimated Blood Loss (ml): 250 Maternal Complications: None LABOR SUMMARY EDC: 05/10/2016 00:00 No. Babies in Womb: 1 Attempted: No Labor Anesthesia: Epidural LABOR INFORMATION Reason for Induction: Not Applicable Onset of Labor: 05/11/2016 15:41 Complete Dilatation: 05/11/2016 19:28 Oxytocin: Augmentation Group B Beta Strep: Negative Antibiotics # of Doses: 0 Steroids Given: None Reason Steroids Not Administered: Not Applicable [facility] Membranes Rupture Method: Artificial Rupture of Membranes: 05/11/2016 15:41 Length of Rupture (hr): 6.13 Amniotic Fluid Color: Light Meconium Amniotic Fluid Amount: Moderate Amniotic Fluid Odor: Normal STAGES OF LABOR Stage 1 hr: 3 Stage 1 min: 47 Stage 2 hr: 2 Stage 2 min: 21 Stage 3 hr: 0 Stage 3 min: 7 Total Time in Labor hr: 6 Total Time in Labor min: 15 VAGINAL DELIVERY Episiotomy: None Laceration Extension: N/A Laceration Type: Vaginal Laceration Repair: Yes Laceration Repair Note: Right labial laceration repaired with 3-0 chromic suture Sponge Count Correct: Yes; Vaginal Sweep Performed Sharps Count Correct: Yes CSECTION DELIVERY Primary Indication: N/A Secondary Indication: N/A CSection Incidence: N/A Labor: N/A Elective: N/A CSection Incision: N/A BABY A INFORMATION Infant Delivery Date/Time: 05/11/2016 21:49 Method of Delivery: Vaginal Born in Route : No : N/A Forceps: N/A Vacuum Extraction: N/A Shoulder Dystocia : No PRESENTATION/POSITION BABY A Presentation: Cephalic Cephalic Presentation: Vertex Vertex Position: Right Occipital Anterior Breech Presentation: N/A PLACENTA INFORMATION BABY A Placenta Delivery Time : 05/11/2016 21:56 Placenta Method of Delivery: Spontaneous Placenta Status: Delivered SCORES BABY A Heart Rate 1 min: >100 bpm Resp Effort 1 min: Good Cry Reflex Irritability 1 min: Cough or Sneeze or Pulls Away Muscle Tone 1 min: Active Motion Color 1 min: Blue/Pale SCORE 1 MIN: 8 Heart Rate 5 min: >100 bpm Resp Effort 5 min: Good Cry Reflex Irritability 5 min: Cough or Sneeze or Pulls Away Muscle Tone 5 min: Active Motion Color 5 min: Body [place], Extremities Blue SCORE 5 MIN: 9 INFANT INFORMATION BABY A Gestational Age at Delivery: 40.1 Gestational Status: Full Term- 39- 40.6 Weeks Outcome : Liveborn Condition : Stable Sex: Male IDENTIFICATION BABY A Infant Verification Date/Time: 05/11/2016 22:03 ID Band Number: [id number] Mother's Name Verified: Yes RN Verifying Infant: K John RN/ S Lattibeadier RN WEIGHT/LENGTH BABY A Infant Birthweight (gm): 3240 Infant Weight (lb): 7 Weight (oz): 2 Infant Length (in): 19.75 Length (cm): 50.17 CORD INFORMATION BABY A No. Cord Vessels: 3 Nuchal Cord : Around Neck x1, Loose Cord Blood Taken: Yes-For Eval (Mom's Blood Type - or O+) Suction: Mouth; Nose ASSESSMENT BABY A Complications: Meconium Physical Findings at Delivery: Within Normal Limits Physical Findings- Other: crying at delivery Respirations: Appears Normal Skin to Skin: Yes Skin to Skin Time (min): 60 Care By: Terrell Jeff RN and Mary Bennett RN Transferred To: Remains with Mother BABY B INFORMATION : N/A SIGNATURES Signature: with User ID: [email or web address]
[2016-05-12] MEDS: IBUPROFEN 800 MG TABLET PO SCH ×3 (00:02→21:33)
--- NOTE | 2016-05-12 00:09 | Admission Physical ---
Datetime Report Generated by CPN: 05/12/2016 00:09 CURRENT ADMISSION Hx Assessment: The History has been Reviewed and is Current Chief Complaint: Uterine Contractions; Signs/Symptoms Gestational HTN Indication for Induction: Gest. HTN/PreEclampsia/Eclampsia Admit Plan: Admit to Unit; Initiate Labor Protocol; Initiate Labor Augmentation Protocol ALLERGIES Medication Allergies: No Medication Allergies: No Known Allergies (05/11/2016) Medication Allergies: No Known Allergies (05/10/2016) Medication Allergies: No Known Allergies (05/09/2016) Medication Allergies: No Known Allergies (04/27/2016) Latex: No Latex Allergies Food Allergies: N/A Environmental Allergies: N/A OBSTETRICAL HISTORY EDC: 05/10/2016 00:00 : 1 Para: 0 Term: 0 : 0 SAB: 0 IAB: 0 Ectopic: 0 Livin Cesareans: 0 VBACs: 0 Multiple Births: 0 Gestational Diabetes: No Rh Sensitization: No Incompetent Cervix: No VALERIA: No Infertility: No ART Treatment: No Uterine Anomaly: No IUGR: No Hx Previous C/S: No Macrosomia: No Hx Loss/Stillborn: No PIH: No Hx : No Placenta Previa/Abruption: No Depression/PP Depression: No PTL/PROM: No Post Hemorrhage: No Current Procedures: Ultrasound; NST Obstetrical History Comments: G1: Current SEE RECORDS Alcohol: No Marijuana : No Cocaine: No Other Illicit Drugs: No Cigarettes: Never Smoker. [id number] MEDICAL HISTORY Diabetes: No Blood Transfusion: No Pulmonary Disease (Asthma, TB): No Breast Disease: No Hypertension: No Litigation Coordinator Surgery: No Heart Disease: No Hosp/Surgery: No Autoimmune Disorder: No Anesthetic Complications: No Kidney Disease: No Abnormal Pap Smear: No Neuro/Epilepsy: No Psychiatric Disorders: No Other Medical Diseases: No Hepatitis/Liver Disease: No Significant Family History: No Varicosities/Phlebitis: No Trauma/Violence : No Thyroid Dysfunction: No INFECTIOUS HISTORY Gonorrhea: No Genital Herpes: No Chlamydia: No Tuberculosis: No Syphilis: No Hepatitis: No HIV/AIDS Exposure: No Rash or Viral Illness: No HPV: No PHYSICAL EXAM General: Normal HEENT: Normal Neurologic: Normal Thyroid: Deferred Heart: Normal Lungs: Normal Breast: Deferred Back: Normal Abdomen: Normal Genitourinary Exam: Normal Extremities: Normal DTRs: Normal Pelvic Type: Adequate Vital Signs: Reviewed Details Vital Signs: Mild range elevation VAGINAL EXAM Dilatation: 5 Effacement: 100 Station: -1 Contraction Comments: irreg [facility] Amniotic Fluid Color: Meconium, Heavy FETUS A EGA: 40.1 Monitoring: External US FHR- Baseline: 135 Variability: Moderate 6-25bpm Accelerations: 10X10 Decelerations: Prolonged FHR Comments: prolonged decel that resolved with position change after AROM Presentation: Vertex Admit Comment: 25yo O pos, [place], GBS neg admitted into L_D with prodormal labor and elevated BPs. Labor augment protocol and AROM per Dr. Metzger. [facility] labs to be drawn on admission. Pt. with positve urine culture for strep viridans at NOB with Neg NANCY consulted with LAMINATION TECHNICIAN and no treatment for GBS in labor. PLANS FOR LABOR AND DELIVERY Labor and Delivery: None Pain Management: Medications; Epidural Feeding Preference: Breast Benefit of Breast Feed Discussed: Yes Circumcision: Yes INFORMED CONSENT Assignment: Wong Metzger MD Signature: with User ID: [email or web address] : with User ID: [email or web address]
--- NOTE | 2016-05-12 07:02 | L&D Flow Sheet ---
LD Flowsheet Datetime Report Generated by CPN: 05/12/2016 07:00 Datetime: 05/11/2016 23:58 Stage of : Recovery (Cindy Mcknight, RN) Datetime: 05/11/2016 23:40 Stage of : Recovery (Cindy Mcknight, RN) Respirations: 18 (Cindy Mcknight, RN) Temperature (F): 99.3 (Cindy Mcknight, RN) Temperature (C): 37.4 (QS system process) Temperature Route: Oral (Cindy Mcknight, RN) Pain Scale: 1 (Cindy Mcknight, RN) Pain Presence: Constant (Cindy Mcknight, RN) Pain Type: Cramping (Cindy Mcknight, RN) Pain Location: Abdomen (Cindy Mcknight, RN) Datetime: 05/11/2016 23:20 Stage of : Recovery (Cindy Mcknight, RN) Datetime: 05/11/2016 23:18 Stage of : Recovery (Cindy Mcknight, RN) Datetime: 05/11/2016 23:15 Stage of : Recovery (Cindy Mcknight, RN) Respirations: 18 (Cindy Mcknight, RN) Pain Scale: 1 (Cindy Mcknight, RN) Pain Presence: Constant (Cindy Mcknight, RN) Pain Type: Cramping (Cindy Mcknight, RN) Pain Location: Abdomen (Cindy Mcknight, RN) Datetime: 05/11/2016 23:12 NBP Sys/Erica/Mean (mmHg): 144 (QS system process) : 65 (QS system process) : 94 (QS system process) Pulse: 114 (QS system process) Datetime: 05/11/2016 23:11 NBP Sys/Erica/Mean (mmHg): 193 (QS system process) : 77 (QS system process) : 106 (QS system process) Pulse: 123 (QS system process) Datetime: 05/11/2016 23:00 Stage of : Recovery (Cindy Mcknight, RN) Datetime: 05/11/2016 22:45 Stage of : Recovery (Cindy Mcknight, RN) Datetime: 05/11/2016 22:30 Stage of : Recovery (Cindy Mcknight, RN) Respirations: 18 (Cindy Mcknight, RN) Temperature (F): 98.6 (Cindy Mcknight, RN) Temperature (C): 37.0 (QS system process) Pain Scale: 1 (Cindy Mcknight, RN) Pain Presence: Constant (Cindy Mcknight, RN) Pain Type: Cramping (Cindy Mcknight, RN) Pain Location: Abdomen (Cindy Mcknight, RN) Pain Goal: 1 (Cindy Mcknight, RN) Datetime: 05/11/2016 22:18 Stage of : Recovery (Cindy Mcknight, RN) Datetime: 05/11/2016 22:15 Stage of : Recovery (Cindy Mcknight, RN) Datetime: 05/11/2016 22:03 NBP Sys/Erica/Mean (mmHg): 118 (QS system process) : 71 (QS system process) : 89 (QS system process) Pulse: 111 (QS system process) Datetime: 05/11/2016 22:00 Stage of : Recovery (Cindy Mcknight, RN) Pain Scale: 1 (Cindy Mcknight, RN) Pain Presence: Constant (Cindy Mcknight, RN) Pain Type: Cramping (Cindy Mcknight, RN) Pain Location: Abdomen (Cindy Mcknight, RN) Pain Relief Measures: Comfort Measures (Cindy Mcknight, RN) Datetime: 05/11/2016 21:56 Stage of : Recovery (Cindy Mcknight, RN) Stage 2 Comments: placental delivered and inspected by Dr Metzger (Cindy Mcknight, RN) Datetime: 05/11/2016 21:46 Monitor Mode: External; Palpation (Cindy Mcknight, RN) Frequency (min): 2-3 (Cindy Mcknight, RN) Quality: Strong (Cindy Mcknight, RN) Duration (sec): 60-90 (Cindy Mcknight, RN) Pattern: Normal: <= 5 Contractions in 10 Minutes (Cindy Mcknight, RN) Resting Tone (Palpate): Relaxed (Cindy Mcknight, RN) Monitor Mode: External US (Cindy Mcknight, RN) FHR Baseline Rate : 150 (Cindy Mcknight, RN) Variability: Moderate 6-25 bpm (Cindy Mcknight, RN) Accelerations: None (Cindy Mcknight, RN) Decelerations: Late; Variable (Cindy Mcknight, RN) Pushing: Coached on Pushing (Cindy Mcknight, RN) Pushing Position: Pushing with Contractions (Cindy Mcknight, RN) Pushing Progress: Descent with Pushing; with Pushing (Cindy Mcknight, RN) Stage 2 Comments: viable male delivered by Dr Metzger (Cindy Mcknight, RN) Datetime: 05/11/2016 21:32 Stage of : Labor (Cindy Mcknight, RN) Pushing: Coached on Pushing (Cindy Mcknight, RN) Pushing Position: Pushing with Contractions; Pushing Lithotomy (Cindy Mcknight, RN) Pushing Progress: Descent with Pushing; with Pushing (Cindy Mcknight RN) Stage 2 Comments: Rn at bedside continuously monitoring FHR while pushing (Cindy Mcknight RN) Communication: RN at Bedside; RN Reviewed Strip (Cindy Mcknight RN) Datetime: 05/11/2016 21:30 Stage of : Labor (Cindy Mcknight RN) Monitor Mode: External; Palpation (Cindy Mcknight RN) Frequency (min): 2-3 (Cindy Mcknight RN) Quality: Moderate to Strong (Cindy Mcknight RN) Duration (sec): 60-90 (Cindy Mcknight RN) Pattern: Normal: <= 5 Contractions in 10 Minutes (Cindy Mcknight RN) Resting Tone (Palpate): Relaxed (Cindy Mcknight RN) Monitor Mode: External US (Cindy Mcknight RN) FHR Baseline Rate : 150 (Cindy Mcknight RN) Variability: Moderate 6-25 bpm (Cindy Mcknight RN) Accelerations: 10X10 (Cindy Mcknight RN) Decelerations: Variable (Cindy Mcknight RN) Pitocin (milliunit): Pitocin Remains (milliunits) @ 4 (Cindy Mcknight RN) Communication: RN at Bedside; RN Reviewed Strip (Cindy Mcknight RN) Datetime: 05/11/2016 21:15 Stage of : Labor (Cindy Mcknight, RN) Monitor Mode: External; Palpation (Cindy Mcknight, RN) Frequency (min): 2-2.5 (Cindy Mcknight, RN) Quality: Strong (Cindy Mcknight, RN) Duration (sec): 60-80 (Cindy Mcknight, RN) Pattern: Normal: <= 5 Contractions in 10 Minutes (Cindy Mcknight, RN) Resting Tone (Palpate): Relaxed (Cindy Mcknight, RN) Variability: Moderate 6-25 bpm (Cindy Mcknight, RN) Comments: unable to determine, unable to determine if FHR is trying to reestablish baseline (Cindy Mcknight, RN) Pitocin (milliunit): Pitocin Remains (milliunits) @ 4 (Cindy Mcknight, RN) Communication: RN at Bedside; RN Reviewed Strip (Cindy Mcknight, RN) Datetime: 05/11/2016 21:13 Patient Position/Activity: Right Lateral; Peanut Ball; Trendelenburg (Cindy Mcknight, RN) Datetime: 05/11/2016 21:00 Stage of : Labor (Cindy Mcknight, RN) Monitor Mode: External (Cindy Mcknight, RN) Frequency (min): 2-3 (Cindy Mcknight, RN) Quality: Strong (Cindy Mcknight, RN) Duration (sec): 50-80 (Cindy Mcknight, RN) Pattern: Normal: <= 5 Contractions in 10 Minutes (Cindy Mcknight, RN) Resting Tone (Palpate): Relaxed (Cindy Mcknight, RN) Monitor Mode: External US (Cindy Mcknight, RN) Monitor Interventions for FHR: Ultrasound Adjusted (Cindy Mcknight, RN) FHR Baseline Rate : 155 (Cindy Mcknight, RN) Variability: Moderate 6-25 bpm (Cindy Mcknight, RN) Accelerations: 15X15 (Cindy Mcknight, RN) Decelerations: Variable; Prolonged (Cindy Mcknight, RN) Pitocin (milliunit): Pitocin Remains (milliunits) @ 4 (Cindy Mcknight, RN) Communication: RN at Bedside; RN Reviewed Strip (Cindy Mcknight, RN) Datetime: 05/11/2016 20:57 Actions for Decelerations: Oxygen Applied (Cindy Mcknight, RN) Datetime: 05/11/2016 20:56 Pushing Position: Pushing Right Side (Cindy Mcknight, RN) Datetime: 05/11/2016 20:50 Stage 2 Comments: hands and knees (Cindy Mcknight, RN) Datetime: 05/11/2016 20:45 Stage of : Labor (Cindy Mcknight, RN) Monitor Mode: External; Palpation (Cindy Mcknight, RN) Frequency (min): 1.5-3 (Cindy Mcknight, RN) Quality: Strong (Cindy Mcknight, RN) Duration (sec): 50-80 (Cindy Mcknight, RN) Pattern: Normal: <= 5 Contractions in 10 Minutes (Cindy Mcknight, RN) Resting Tone (Palpate): Relaxed (Cindy Mcknight, RN) Monitor Mode: External US (Cindy Mcknight, RN) FHR Baseline Rate : 155 (Cindy Mcknight, RN) Variability: Moderate 6-25 bpm (Cindy Mcknight, RN) Accelerations: 15X15 (Cindy Mcknight, RN) Decelerations: Variable (Cindy Mcknight, RN) Pitocin (milliunit): Pitocin Remains (milliunits) @ 4 (Cindy Mcknight, RN) Communication: RN at Bedside; RN Reviewed Strip (Cindy Mcknight, RN) Datetime: 05/11/2016 20:30 Stage of : Labor (Cindy Mcknight, RN) Monitor Mode: External (Cindy Mcknight, RN) Frequency (min): 1-3 (Cindy Mcknight, RN) Quality: Strong (Cindy Mcknight, RN) Duration (sec): 50-120 (Cindy Mcknight, RN) Pattern: Normal: <= 5 Contractions in 10 Minutes (Cindy Mcknight, RN) Resting Tone (Palpate): Relaxed (Cindy Mcknight, RN) Monitor Mode: External US (Cindy Mcknight, RN) FHR Baseline Rate : 155 (Cindy Mcknight, RN) Variability: Moderate 6-25 bpm (Cindy Mcknight, RN) Accelerations: 15X15 (Cindy Mcknight, RN) Decelerations: Early (Cindy Mcknight, RN) Pitocin (milliunit): Pitocin Remains (milliunits) @ 4 (Cindy Mcknight, RN) Communication: RN at Bedside; RN Reviewed Strip (Cindy Mcknight, RN) Datetime: 05/11/2016 20:27 Pitocin (milliunit): Pitocin Increased to (milliunits) @ 4 (Cindy Mcknight, RN) Datetime: 05/11/2016 20:15 Stage of : Labor (Cindy Mcknight, RN) Respirations: 18 (Cindy Mcknight, RN) Monitor Mode: External (Cindy Mcknight, RN) Frequency (min): 1.5-4 (Cindy Mcknight, RN) Quality: Strong (Cindy Mcknight, RN) Duration (sec): 60-80 (Cindy Mcknight, RN) Pattern: Normal: <= 5 Contractions in 10 Minutes (Cindy Mcknight, RN) Resting Tone (Palpate): Relaxed (Cindy Mcknight, RN) Monitor Mode: External US (Cindy Mcknight, RN) FHR Baseline Rate : 155 (Cindy Mcknight, RN) Variability: Moderate 6-25 bpm (Cindy Mcknight, RN) Accelerations: 15X15 (Cindy Mcknight, RN) Decelerations: Variable (Cindy Mcknight, RN) Pitocin (milliunit): Pitocin Remains (milliunits) @ 2 (Cindy Mcknight RN) Communication: RN at Bedside; RN Reviewed Strip (Cindy Mcknight RN) LaborFlag: Labor (QS system process) Datetime: 05/11/2016 20:01 Pushing Position: Pushing Left Side (Cindy Mcknight, YIN) Datetime: 05/11/2016 20:00 Stage of : Labor (Cindy Mcknight, YIN) Monitor Mode: External (Cindy Mcknight RN) Frequency (min): 1.5-3.5 (Cindy Mcknight RN) Quality: Strong (Cindy Mcknight RN) Duration (sec): 60-90 (Cindy Mcknight, RN) Pattern: Normal: <= 5 Contractions in 10 Minutes (Cindy Mcknight, RN) Resting Tone (Palpate): Relaxed (Cindy Mcknight, RN) Monitor Mode: External US (Cindy Mcknight, RN) FHR Baseline Rate : 150 (Cindy Mcknight, RN) Variability: Moderate 6-25 bpm (Cindy Mcknight, RN) Accelerations: 10X10 (Cindy Mcknight, RN) Decelerations: Late; Variable (Cindy Mcknight, RN) Pitocin (milliunit): Pitocin Remains (milliunits) @ 2 (Cindy Mcknight, RN) Communication: RN at Bedside; RN Reviewed Strip (Cindy Mcknight, RN) Datetime: 05/11/2016 19:59 Actions for Decelerations: Side to Side; Oxygen Applied (Cindy Mcknight, RN) Datetime: 05/11/2016 19:56 Actions for Decelerations: IV Bolus (Cindy Mcknight, RN) Datetime: 05/11/2016 19:54 Pitocin (milliunit): Pitocin Decreased to (milliunits) @ 2 (Cindy Mcknight, RN) Datetime: 05/11/2016 19:52 NBP Sys/Erica/Mean (mmHg): 157 (QS system process) : 101 (QS system process) : 120 (QS system process) Pulse: 130 (QS system process) LaborFlag: Labor (QS system process) Datetime: 05/11/2016 19:45 Stage of : Labor (Cindy Mcknight, RN) Monitor Mode: External (Cindy Mcknight, RN) Frequency (min): 1-4 (Cindy Mcknight, RN) Quality: Strong (Cindy Mcknight, RN) Duration (sec): 60-120 (Cindy Mcknight, RN) Pattern: Normal: <= 5 Contractions in 10 Minutes (Cindy Mcknight, RN) Resting Tone (Palpate): Relaxed (Cindy Mcknight, RN) Monitor Mode: External US (Cindy Mcknight, RN) FHR Baseline Rate : 150 (Cindy Mcknight, RN) Variability: Moderate 6-25 bpm (Cindy Mcknight, RN) Accelerations: None (Cindy Mcknight, RN) Decelerations: Late (Cindy Mcknight, RN) Pitocin (milliunit): Pitocin Remains (milliunits) @ 4 (Cindy Mcknight, RN) Communication: RN at Bedside; RN Reviewed Strip (Cindy Mcknight, RN) Datetime: 05/11/2016 19:43 Communication Comments: Dr Metzger notified of pt pushing and asked to come to room. (Digna Thapa RN) Datetime: 05/11/2016 19:37 NBP Sys/Erica/Mean (mmHg): 118 (QS system process) : 76 (QS system process) : 92 (QS system process) Pulse: 118 (QS system process) LaborFlag: Labor (QS system process) Datetime: 05/11/2016 19:33 Stage 2 Comments: tug of war (Cindy Mcknight, RN) Datetime: 05/11/2016 19:30 Stage of : Labor (Cindy Mcknight, RN) Monitor Mode: External (Cindy Mcknight, RN) Frequency (min): 1.5-2 (Cindy Mcknight, RN) Quality: Strong (Cindy Mcknight, RN) Duration (sec): 60-80 (Cindy Mcknight, RN) Pattern: Normal: <= 5 Contractions in 10 Minutes (Cindy Mcknight, RN) Resting Tone (Palpate): Relaxed (Cindy Mcknight, RN) Monitor Mode: External US (Cindy Mcknight, RN) FHR Baseline Rate : 150 (Cindy Mcknight, RN) Variability: Moderate 6-25 bpm (Cindy Mcknight, RN) Accelerations: None (Cindy Mcknight, RN) Decelerations: Late (Cindy Mcknight, RN) Pitocin (milliunit): Pitocin Remains (milliunits) @ 4 (Cindy Mcknight, RN) Communication: RN at Bedside; RN Reviewed Strip (Cindy Mcknight, RN) Datetime: 05/11/2016 19:28 Stage of : Labor (Cindy Mcknight, YIN) Dilatation (cm): 10.0 (Cindy Mcknight, RN) Effacement (%): 100 (Cindy Mcknight, RN) Station: 2 (Cindy Mcknight, RN) Pushing: Coached on Pushing (Cindy Mcknight RN) Pushing Position: Pushing with Contractions (Cindy Mcknight, RN) Stage 2 Comments: RN at bedside continously monitoring FHR while pushing with patient. (Cindy Mcknight RN) Communication: RN at Bedside; RN Reviewed Strip (Cindy Mcknight, RN) Datetime: 05/11/2016 19:23 NBP Sys/Erica/Mean (mmHg): 147 (QS system process) : 90 (QS system process) : 112 (QS system process) Pulse: 108 (QS system process) LaborFlag: Labor (QS system process) Datetime: 05/11/2016 19:15 Stage of : Labor (Cindy Mcknight, RN) Monitor Mode: External; Palpation (Cindy Mcknight, RN) Frequency (min): 3-4 (Cindy Mcknight, RN) Quality: Strong (Cindy Mcknight, RN) Duration (sec): 90-120 (Cindy Mcknight, RN) Pattern: Normal: <= 5 Contractions in 10 Minutes (Cindy Mcknight, RN) Resting Tone (Palpate): Relaxed (Cindy Mcknight, RN) Monitor Mode: External US (Cindy Mcknight, RN) FHR Baseline Rate : 140 (Cindy Mcknight, RN) Variability: Moderate 6-25 bpm (Cindy Mcknight, RN) Accelerations: 15X15 (Cindy Mcknight, RN) Decelerations: None (Cindy Mcknight, RN) Communication: RN at Bedside; RN Reviewed Strip (Cindy Mcknight, RN) Datetime: 05/11/2016 19:10 Temperature (F): 98.3 (Yodit Toribio, RN) Temperature (C): 36.8 (QS system process) Patient Care Comments: Report given to Ludwin Mcknight RN (Sharon Schultz RN) LaborFlag: Antepartum (QS system process) Datetime: 05/11/2016 19:09 Dilatation (cm): 8.5 (Yodit Malu, RN) Effacement (%): 100 (Yodit Dimasmes, RN) Station: 0 (Yodit Toribio, RN) Exam by: ARoshni Toribio RN (Yodit Dimasmes, RN) Datetime: 05/11/2016 19:07 NBP Sys/Erica/Mean (mmHg): 122 (QS system process) : 65 (QS system process) : 88 (QS system process) Pulse: 91 (QS system process) LaborFlag: Antepartum (QS system process) Datetime: 05/11/2016 19:00 Monitor Mode: External; Palpation (Sharon Schultz RN) Frequency (min): 2-3 (Sharon Schultz RN) Quality: Moderate (Sharon Schultz RN) Duration (sec): 60-90 (Sharon Schultz RN) Duration Criteria: Less than Two 120 Second Contractions (Sharon Schultz RN) Resting Tone (Palpate): Relaxed (Sharon Schultz RN) Contraction Comments: RN remains at bedside (Sharon Schultz RN) Monitor Mode: External US (Sharon Schultz RN) FHR Baseline Rate : 140 (Sharon Schultz RN) Variability: Moderate 6-25 bpm (Sharon Schultz RN) Accelerations: None (Sharon Schultz RN) Decelerations: None (Sharon Schultz RN) Pitocin (milliunit): Pitocin Remains (milliunits) @ 4 (Sharon Schultz RN)
[2016-05-12 07:52] LABS: HEMATOCRIT 29.2 % (36.0-47.0); HGB HCT DIFFERENCE 0.8; MEAN CORPUSCULAR HGB CONC 34.2 g/dL (32.0-36.0); MEAN CORPUSCULAR VOLUME 91 fl (80-97); RED BLOOD COUNT 3.23 10^6/uL (3.72-5.28); RED CELL DISTRIBUTION WIDTH 14.3 % (11.5-14.0); WHITE BLOOD COUNT 11.8 10^3/uL (4.0-10.5)
[2016-05-12] MEDS: PRENATAL VITAMIN W-O CA NO5/FE FUMARATE/FA CAPSULE PO SCH (09:18)
[2016-05-12] MEDS: FERROUS SULFATE 325 MG TABLET PO SCH ×2 (09:19→17:54)
[2016-05-12] MEDS: SENNOSIDES/DOCUSATE 8.6-50 MG 1 EACH TABLET PO SCH (09:19)
[2016-05-12] MEDS: FAMOTIDINE 20 MG TABLET PO SCH ×2 (09:19→21:33)
[2016-05-12] MEDS: DOCUSATE SODIUM 100 MG CAPSULE PO SCH ×2 (09:19→17:54)
--- NOTE | 2016-05-12 11:13 | PDOC PROGRESS REPORT ---
Subjective-OB Subjective: Post Delivery Day: 25 year old. Denies any needs at this time Doing well, no c/o, ambulating, voiding, diet taken well, Physical Exam (OB) Vital Signs: Temp Pulse Resp BP Pulse Ox 98.2 F 79 16 108/64 99 05/12/16 08:26 05/12/16 08:26 05/12/16 08:26 05/12/16 08:26 05/12/16 08:26 Intake & Output 05/11/16 05/12/16 05/13/16 06:59 06:59 06:59 Weight 76.65 kg - PIH/Pre-Eclampsia DTR's: 3 + Clonus: Negative Headache: Absent Epigastric Pain: No Visual Changes: No - Lochia Lochia Amount: Small 10-25 ml Lochia Color: Rubra/Red - Abdomen Description: Soft, Round Hernia Present: No Fundal Description: Firm, Midline Fundal Height: u/u - u/2 Objective-Diagnostic Laboratory: 05/12/16 07:33 05/11/16 16:39 05/11/16 05/11/16 05/11/16 11:14 16:39 16:39 WBC 13.4 H RBC 3.89 Hgb 11.8 L Hct 34.9 L MCV 90 MCH 30.4 MCHC 33.9 RDW 14.0 Plt Count 236 Seg Neutrophils % 77.8 Lymphocytes % 14.6 Monocytes % 7.2 Eosinophils % 0.2 Basophils % 0.2 Absolute Neutrophils 10.4 H Absolute Lymphocytes 2.0 Absolute Monocytes 1.0 Absolute Eosinophils 0.0 Absolute Basophils 0.0 Sodium 136.7 L Potassium 4.0 Chloride 107 Carbon Dioxide 20 L Anion Gap 10 BUN 7 Creatinine 0.65 Est GFR ( Amer) > 60 Est GFR (Non-Af Amer) > 60 Glucose 85 Uric Acid 4.6 Calcium 9.4 Total Bilirubin 0.6 AST 22 ALT 35 Alkaline Phosphatase 192 H Total Protein 6.2 L Albumin 3.3 L Urine Color YELLOW Urine Appearance CLOUDY Urine pH 6.0 Ur Specific [place] 1.008 Urine Protein NEGATIVE Urine Glucose (UA) NEGATIVE Urine Ketones NEGATIVE Urine Blood SMALL H Urine Nitrite NEGATIVE Ur Leukocyte Esterase LARGE H Blood Type Antibody Screen 05/11/16 05/12/16 16:39 07:33 WBC 11.8 H RBC 3.23 L Hgb 10.0 L Hct 29.2 L MCV 91 MCH 31.0 MCHC 34.2 RDW 14.3 H Plt Count 204 Seg Neutrophils % Lymphocytes % Monocytes % Eosinophils % Basophils % Absolute Neutrophils Absolute Lymphocytes Absolute Monocytes Absolute Eosinophils Absolute Basophils Sodium Potassium Chloride Carbon Dioxide Anion Gap BUN Creatinine Est GFR ( Amer) Est GFR (Non-Af Amer) Glucose Uric Acid Calcium Total Bilirubin AST ALT Alkaline Phosphatase Total Protein Albumin Urine Color Urine Appearance Urine pH Ur Specific [place] Urine Protein Urine Glucose (UA) Urine Ketones Urine Blood Urine Nitrite Ur Leukocyte Esterase Blood Type O POSITIVE Antibody Screen NEGATIVE Assessment and Plan(PN) - Assessment and Plan (1) Gestational hypertension Qualifiers: Trimester: third trimester Qualified Code(s): O13.3 - Gestational [ -induced] hypertension without significant proteinuria, third trimester Is this a current diagnosis for this admission?: Yes (2) Normal vaginal delivery Is this a current diagnosis for this admission?: Yes (3) Anemia Qualifiers: Anemia type: iron deficiency Is this a current diagnosis for this admission?: Yes - Time Spent with Patient Time with patient: Less than 15 minutes Medications reviewed and adjusted accordingly: Yes - Disposition Anticipated Discharge: Home Within: within 24 hours
--- NOTE | 2016-05-12 18:01 | L&D General Admission ---
General Admit Datetime Report Generated by CPN: 05/12/2016 18:00 INFORMATION Patient Age: 25 (04/27/2016 12:11:QS system process) EDC: 05/10/2016 00:00 (04/27/2016 12:12:Ibeth Griffin RN) : 1 (04/27/2016 12:12:Ibeth Griffin RN) Para: 0 (04/27/2016 12:12:Ibeth Griffin RN) Term: 0 (04/27/2016 12:12:Ibeth rGiffin RN) : 0 (04/27/2016 12:12:Ibeth Griffin RN) Spontaneous Abortions: 0 (04/27/2016 12:12:Ibeth Griffin RN) Induced Abortions: 0 (04/27/2016 12:12:Ibeth Griffin RN) Livin (04/27/2016 12:12:Ibeth Griffin RN) Cesareans: 0 (04/27/2016 12:12:Ibeth Griffin RN) VBACs: 0 (04/27/2016 12:12:Ibeth Griffin RN) Ectopic: 0 (04/27/2016 12:12:Ibeth Griffin RN) Multiple Births: 0 (04/27/2016 12:12:Ibeth Griffin RN) Baby, Number in Womb: 1 (04/27/2016 12:12:Ibeth Griffin RN) CARE Primary Air Launch Weapons Technician: [facility] (04/27/2016 12:12:Ibeth Griffin RN) Month of 1st Visit: 10/2015 (04/27/2016 12:12:Ibeth Griffin RN) Adequate Care: Yes (04/27/2016 12:12:Ibeth Griffin RN) Prepregnancy Weight (lb): 146 (04/27/2016 12:12:Ibeth Griffin RN) Prepregnancy Weight (kg): 66.4 (04/27/2016 12:12:QS system process) Height (in): 64 (05/12/2016 14:36:QS system process) ALLERGIES Medication Allergy: No (04/27/2016 12:12:Ibeth Griffin RN) Medication Allergies: No Known Allergies (05/11/2016) (05/11/2016 00:13:QS system process) Latex Allergy: No Latex Allergies (04/27/2016 12:12:Ibeth Griffin RN) Food Allergies: N/A (04/27/2016 12:12:Ibeth Griffin RN) Environmental Allergies: N/A (04/27/2016 12:12:Ibeth Griffin RN) COMMUNICATION Primary Language: Mexican (04/27/2016 12:12:Ibeth Griffin RN) Medical Tx Preferred Language: Mexican (04/27/2016 12:12:Ibeth Griffin RN) Communication Barrier(s): None (04/27/2016 12:12:Roxana Green RN) DEMOGRAPHICS Address: [address] [place] [id number] (05/10/2016 11:57:QS system process) Zipcode: [address] (04/27/2016 12:11:QS system process) Home (04/27/2016 12:11:QS system process) Work (04/27/2016 12:11:QS system process) SSN: [id number] (04/27/2016 12:11:QS system process) Next of Kin Name: TRAV RAMIREZ (04/27/2016 12:11:QS system process) Next of Kin (04/27/2016 12:11:QS system process) Next of Kin Relationship: SPO (04/27/2016 12:11:QS system process) Date of : 1990 (04/27/2016 12:11:QS system process) Marital Status: (04/27/2016 12:11:QS system process) Sex: Female (04/27/2016 12:11:QS system process) Race: (04/27/2016 12:11:QS system process) Ethnicity: Non- or (04/27/2016 12:11:QS system process) Quaker: Sabianism (04/27/2016 12:11:QS system process) DRUG AND ALCOHOL USE Alcohol: No (04/27/2016 12:12:Ibeth Griffin RN) Cigarettes: Never Smoker. [id number] (04/27/2016 12:12:Ibeth Griffin RN) Marijuana: No (04/27/2016 12:12:Ibeth Griffin RN) Cocaine: No (04/27/2016 12:12:Ibeth Griffin RN) Other Illicit Drugs: No (04/27/2016 12:12:Ibeth Griffin RN) VACCINE HISTORY Influenza Vaccine: No (04/27/2016 12:12:Ibeth Griffin RN) Pneumococcal Vaccine: No (04/27/2016 12:12:Ibeth Griffin RN) Tetanus Vaccine: Yes (04/27/2016 12:12:Ibeth Griffin RN) Tdap Vaccine: Yes (04/27/2016 12:12:Ibeth Griffin RN) Hepatitis B Vaccine: Uncertain (04/27/2016 12:12:Sharon Schultz RN) Whipped Topping Finisher: [facility] (04/27/2016 12:12:Sharon Schultz RN) Feeding Preference: Breast (04/27/2016 12:12:Ibeth Griffin RN) Benefit of Breast Feed Discussed: Yes (04/27/2016 12:12:Ibeth Griffin RN) Circumcision: Yes (04/27/2016 12:12:Ibeth Griffin RN) Classes Attended: No (04/27/2016 12:12:Ibeth Griffin RN) Tubal Ligation: No (04/27/2016 12:12:Ibeth Griffin RN) Tubal Authorization Signed: N/A (04/27/2016 12:12:Ibeth Griffin RN) Consent: N/A (04/27/2016 12:12:Ibeth Griffin RN) Consent Signed: N/A (04/27/2016 12:12:Ibeth Griffin RN) Pain Management Plans: Medications; Epidural (04/27/2016 12:12:Sharon Schultz RN) Plans for Labor and Delivery: None (04/27/2016 12:12:Ibeth Griffin RN) Support Person: Travis (04/27/2016 12:12:Ibeth Griffin RN) Support Person Relationship: (04/27/2016 12:12:Ibeth Griffin RN) Cultural/Spritual Practice: No (04/27/2016 12:12:Ibeth Griffin RN) Spir/Cult Dietary Needs: No (04/27/2016 12:12:Ibeth Griffin RN) LIVING SITUATION/DISCHARGE PLAN Living Arrangements: House (04/27/2016 12:12:Ibeth Griffin RN) Adequate Access to:: Electric; Heat; Refrigeration; Plumbing/Running water; Phone; Transportation (04/27/2016 12:12:Ibeth Griffin RN) WIC Program: Yes (04/27/2016 12:12:Ibeth Griffin RN) Discharge Industrial Painter Person: (04/27/2016 12:12:Ibeth Griffin RN) Person to Help after Discharge: (04/27/2016 12:12:Ibeth Griffin RN) Currently Using Commun Resources: Yes (04/27/2016 12:12:Ibeth Griffin RN) Specify Current Resource Used: Medicaid (04/27/2016 12:12:Ibeth Griffin RN) Outside Agency/Battery Technician: No (04/27/2016 12:12:Ibeth Griffin RN) Car Seat for Discharge: Yes (04/27/2016 12:12:Ibeth Griffin RN) Adoption Requested: No (04/27/2016 12:12:Ibeth Griffin RN) Pt Contact w/infant Post : N/A (04/27/2016 12:12:Ibeth Griffin RN) LABS Blood Type: O Positive (04/27/2016 12:12:Ibeth Griffin RN) Antibody Screen: Negative (04/27/2016 12:12:Ibeth Griffin RN) Rho(G) this : Not Applicable (04/27/2016 12:12:Ibeth Griffin RN) Hemoglobin: 10.0 L (05/12/2016 07:33:QS system process) Hematocrit: 29.2 L (05/12/2016 07:33:QS system process) MCV: 91 (05/12/2016 07:33:QS system process) Group Beta Strep: Negative (04/27/2016 12:12:Ibeth Griffin RN) Gonorrhea: Negative (04/27/2016 12:12:Ibeth Griffin RN) Chlamydia: Negative (04/27/2016 12:12:Ibeth Griffin RN) RPR/VDRL: Nonreactive (04/27/2016 12:12:Ibeth Griffin RN) HIV Exposure Test: Negative (04/27/2016 12:12:Ibeth Griffin RN) Hepatitis B: Negative (04/27/2016 12:12:Ibeth Griffin RN) Rubella: Immune (04/27/2016 12:12:Ibeth Griffin RN) OB/PREVIOUS HISTORY Current Procedures: Ultrasound; NST (04/27/2016 12:12:Sharon Schultz RN) History of Previous : No (04/27/2016 12:12:Ibeth Griffin RN) History of Gestational Diabetes: No (04/27/2016 12:12:Ibeth Griffin RN) History of PIH: No (04/27/2016 12:12:Ibeth Griffin RN) History of Incompetent Cervix: No (04/27/2016 12:12:Ibeth Griffin RN) History of Placenta Previa/Abrup: No (04/27/2016 12:12:Ibeth Griffin RN) History of Macrosomia: No (04/27/2016 12:12:Ibeth Griffin RN) History of IUGR: No (04/27/2016 12:12:Ibeth Griffin RN) History of Hemorrhage: No (04/27/2016 12:12:Ibeth Griffin RN) History of Loss/Stillborn: No (04/27/2016 12:12:Ibeth Griffin RN) History of : No (04/27/2016 12:12:Ibeth Griffin RN) History of D (Rh) Sensitization: No (04/27/2016 12:12:Ibeth Griffin RN) History Recurrent Loss/Stillborn: No (04/27/2016 12:12:Ibeth Griffin RN) History Depression/PP Depression: No (04/27/2016 12:12:Ibeth Griffin RN) History of Uterine Anomaly/VALERIA: No (04/27/2016 12:12:Ibeth Griffin RN) History of Infertility: No (04/27/2016 12:12:Ibeth Griffin RN) History of ART Treatment: No (04/27/2016 12:12:Ibeth Griffin RN) History of VALERIA: No (04/27/2016 12:12:Ibeht Griffin RN) Comments Obstetrical History: G1: Current (04/27/2016 12:12:Ibeth Griffin RN) MEDICAL HISTORY Med Hx Diabetes: No (04/27/2016 12:12:Ibeth Griffin RN) Med Hx Hypertension: No (04/27/2016 12:12:Ibeth Griffin RN) Med Hx Heart Disease: No (04/27/2016 12:12:Ibeth Griffin RN) Med Hx Autoimmune Disorder: No (04/27/2016 12:12:Ibeth Griffin RN) Med Hx Kidney Disease/UTI: No (04/27/2016 12:12:Ibeth Griffin RN) Med Hx Neurologic/Epilepsy: No (04/27/2016 12:12:Ibeth Griffin RN) Med Hx Psychiatric Disorders: No (04/27/2016 12:12:Ibeth Griffin RN) Med Hx Hepatitis/Liver Disease: No (04/27/2016 12:12:Ibeth Griffin RN) Med Hx Varicosities/Phlebitis: No (04/27/2016 12:12:Ibeth Griffin RN) Med Hx Thyroid Dysfunction: No (04/27/2016 12:12:Ibeth Griffin RN) Med Hx Trauma/Violence: No (04/27/2016 12:12:Ibeth Griffin RN) Med Hx Blood Transfusion: No (04/27/2016 12:12:Ibeth Griffin RN) Med Hx Pulmonary (Asthma,TB): No (04/27/2016 12:12:Ibeth Griffin RN) Med Hx Breast: No (04/27/2016 12:12:Ibeth Griffin RN) Med Hx FLOOR CARE TECHNICIAN Surgery: No (04/27/2016 12:12:Ibeth Griffin RN) Med Hx Hospitalization/Surgery: No (04/27/2016 12:12:Ibeth Griffin RN) Med Hx Anesthetic Complications: No (04/27/2016 12:12:Ibeth Griffin RN) Med Hx Abnormal Pap Smear: No (04/27/2016 12:12:Ibeth Griffin RN) Other Medical Diseases: No (04/27/2016 12:12:Ibeth Griffin RN) Med Hx Significant Family Hx: No (04/27/2016 12:12:Ibeth Griffin RN) INFECTIOUS HISTORY Inf Hx Gonorrhea: No (04/27/2016 12:12:Ibeth Griffin RN) Inf Hx Chlamydia: No (04/27/2016 12:12:Ibeth Griffin RN) Inf Hx Syphilis: No (04/27/2016 12:12:Ibeth Griffin RN) Inf Hx HIV/AIDS: No (04/27/2016 12:12:Ibeth Griffin RN) Inf Hx Human Papilloma Virus: No (04/27/2016 12:12:Ibeth Griffin RN) Inf Hx Pt/Partner Genital Herpes: No (04/27/2016 12:12:Ibeth Griffin RN) Inf Hx Tuberculosis/Exposure: No (04/27/2016 12:12:Ibeth Griffin RN) Inf Hx Hepatitis B,C: No (04/27/2016 12:12:Ibeth Griffin RN) Inf Hx Rash or Viral Illness: No (04/27/2016 12:12:Ibeth Griffin RN) GENETIC HISTORY Gen Hx Age >=35 at SARA: No (04/27/2016 12:12:Ibeth Griffin RN) Gen Hx Thalassemia: No (04/27/2016 12:12:Ibeth Griffin RN) Gen Hx Congenital Heart Defect: No (04/27/2016 12:12:Ibeth Griffin RN) Gen Hx Neural Tube Defect: No (04/27/2016 12:12:Ibeth Griffin RN) Gen Hx Down's Syndrome: No (04/27/2016 12:12:Ibeth Griffin RN) Gen Hx Sergio-Sachs: No (04/27/2016 12:12:Ibeth Griffin RN) Gen Hx Geovanna: No (04/27/2016 12:12:Ibeth Griffin RN) Gen Hx Familial Dysautonomia: No (04/27/2016 12:12:Ibeth Griffin RN) Gen Hx Sickle Cell Disease/Trait: No (04/27/2016 12:12:Ibeth Griffin RN) Gen Hx Hemophilia/Blood Disorder: No (04/27/2016 12:12:Ibeth Griffin RN) Gen Hx Muscular Dystrophy: No (04/27/2016 12:12:Ibeth Griffin RN) Gen Hx Cystic Fibrosis: No (04/27/2016 12:12:Ibeth Griffin RN) Gen Hx [place] Chorea: No (04/27/2016 12:12:Ibeth Griffin RN) Gen Hx Mental Retardation/Autism: No (04/27/2016 12:12:Ibeth Griffin RN) Gen Hx Tested for Fragile X: No (04/27/2016 12:12:Ibeth Griffin RN) Gen Hx Other Inher/Chromosomal: No (04/27/2016 12:12:Ibeth Griffin RN) Gen Hx Maternal Metabolic DO: No (04/27/2016 12:12:Ibeth Griffin RN) Gen Hx Pt Father or FOB Defect: No (04/27/2016 12:12:Ibeth Griffin RN) Gen Hx Other Genetic History: No (04/27/2016 12:12:Ibeth Griffin RN) Gen Hx Drugs/Meds since LMP: No (04/27/2016 12:12:Ibeth Griffin RN)
--- NOTE | 2016-05-12 18:01 | L&D Current Admission ---
Current Admit Datetime Report Generated by CPN: 05/12/2016 18:00 ADMISSION INFORMATION Current Admit Date/Time: 05/11/2016 15:15 (05/11/2016 15:15:Sharon Schultz RN) Reason for Admission: Onset of Labor (05/11/2016 15:15:Shaorn Schultz RN) Chief Complaint: Contractions (05/11/2016 11:21:Sharon Schultz RN) EGA per Dates: 40.1 (05/11/2016 15:15:QS system process) Method of Arrival: Ambulatory (05/11/2016 15:15:Sharon Schultz RN) Admitted From: [facility] (05/11/2016 15:15:Sharon Schultz RN) Reason for Induction: Not Applicable (05/11/2016 15:15:Sharon Schultz RN) Records Available: Yes (05/11/2016 15:15:Sharon Schultz RN) General Admission Information: Reviewed (05/11/2016 15:15:Sharon Schultz RN) General Admission Reviewed By: Merlin Schultz RN (05/11/2016 15:15:Sharon Schultz RN) BELONGINGS/ADVANCED DIRECTIVES Other Belongings: see signed belonging consent (05/11/2016 15:15:Sharon Schultz RN) Disposition of Belongings: Kept with Patient (05/11/2016 15:15:Sharon Schultz RN) Advance Direct for Healthcare: No, and Wants No Information (05/11/2016 15:15:Sharon Schultz RN) Durable Power of Instructional Specialist: No (05/11/2016 15:15:Sharon Schultz RN) Living Will: No (05/11/2016 15:15:Sharon Schultz RN) Organ Donor: Yes (05/11/2016 15:15:Sharon Schultz RN) Pt Rights Information Given: Yes (05/11/2016 15:15:Sharon Schultz RN) Pt Understands Pt Rights: Yes (05/11/2016 15:15:Sharon Schultz RN) LEARNING ASSESSMENT Knowledge Level: Understands L_D Process; Understands Care Activities; Had Pre-Hospital Education; Understands Diagnosis (05/11/2016 15:15:Sharon Schultz RN) Barriers to Learning: None (05/11/2016 15:15:Sharon Schultz RN) Learning Readiness: Motivated (05/11/2016 15:15:Sharon Schultz RN) Learns Best By: 1 to 1 Instruction (05/11/2016 15:15:Sharon Schultz RN) Learning Needs: Labor and Delivery Process; Pain Management; Symptoms to Report; Treatment Plan; Medication; Diagnosis; Nutrition; Equipment; Infant Care; Community Resources (05/11/2016 15:15:Sharon Schultz RN) DOMESTIC VIOLANCE SCREENING Dom Viol Threatened/Hurt: No (05/11/2016 15:15:Sharon Schultz RN) Hx of Abuse/Neglect past 2yrs: No (05/11/2016 15:15:Sharon Schultz RN) Feel Unsafe Going Home: No (05/11/2016 15:15:Sharon Schultz RN) Addt'l Observ Indicating Abuse: No (05/11/2016 15:15:Sharon Schultz RN) Considered Personal Harm/Suicide: No (05/11/2016 15:15:Sharon Schultz RN) NUTRITIONAL/FUNCTIONAL SCREENING Problem with Appetite >5 Days: No (05/11/2016 15:15:Sharon Schultz RN) Chew/Swallow Difficulties: No (05/11/2016 15:15:Sharon cShultz RN) Inappropriate Wt Gain/Loss: No (05/11/2016 15:15:Sharon Schultz RN) Presence Skin Breakdown/Ulcer: No (05/11/2016 15:15:Sharon Schultz RN) Special Diet: No (05/11/2016 15:15:Sharon Schultz RN) Pt Requests Airline Pilot Flight Instructor Visit: No (05/11/2016 15:15:Sharon Schultz RN) Hx of Any of the Following?: N/A (05/11/2016 15:15:Sharon Schultz RN) New Diagnosis of: N/A (05/11/2016 15:15:Sharon Schultz RN) Requires Assist w/Ambulation: No (05/11/2016 15:15:Sharon Schultz RN) Uses Assist Device to Ambulate: No (05/11/2016 15:15:Sharon Schultz RN) Pt Requires Help w/ADL's: No (05/11/2016 15:15:Sharon Schultz RN)
--- NOTE | 2016-05-12 18:16 | L&D Care Plan ---
LD CARE PLANS Datetime Report Generated by CPN: 05/12/2016 18:15 Datetime: 05/11/2016 22:11 Pain State: Risk For (Cindy Mcknight RN) Related To: Labor and Delivery Process; Treatment and Procedures; Post (Cindy Mcknight RN) Goal(s): Patients Pain will be Assessed and Managed; Patient will Verbalize Adequate Relief of Pain or the Ability to [place] with Current Pain (Cindy Mcknight RN) Interventions: Assess Pain Severity on Scale of 0 (None) to 5 (Severe); Assess Type, Location and Intensity of Pain Each Time Client Reports Discomfort and Notify Provider if Unusal Pain Develops; Encourage Proper Breathing and Relaxation Techniques; Offer Alternatives Such as Repositioning, Calm Environment, Massages, Diversional Activities, Ice Pack, Splinting, and Ambulation; Administer Analgesics as Ordered; Assist with Epidural Placement as Appropriate; Evaluate Therapeutic Effectiveness of Medication and Treatments (Cindy Mcknight RN) Outcome: Patient will Report Absence or Relief of Pain Consistent with Established Pain Goal (Cindy Mcknight RN) Outcome: Patient will have a Decrease in Signs and Symptoms of Discomfort (Cindy Mcknight RN) Outcome: Pain will be Controlled During Procedures (Cindy Mcknight RN) Anxiety State: Risk For (Cindy Mcknight RN) Related To: Labor and Delivery Process; Situational Crisis; Medical Interventions; Significant Life Event (Cindy Mcknight RN) Goal(s): Patient will have Decreased Anxiety and be able to Function at Acceptable Levels (Cindy Mcknight RN) Interventions: Assess Verbal and Nonverbal Behavioral Indicators of Anxiety; Assist Patient to Identify and Verbalize Symptoms of Anxiety; Identify and Demonstrate Techniques to Control Anxiety; Assist Patient with Coping Mechanisms to Manage Anxiety; Provide Theraputic Touch for the Patient; Explain to Patient, Using a Calm Reassuring Approach and Nonmedical Terms, All Activities, Procedures, and Concerns; Instruct Patient and Family about Post Discharge Care, Limitations, Symptoms to Report and Resources Available (Cindy Mcknight RN) Outcome: Patient will Identify, Verbalize and Demonstrate Techniques to Control Anxiety (Cindy Mcknight RN) Outcome: Patient's Posture, Facial Expressions, Gestures and Activity Level will Reflect Decreased Anxiety (Cindy Mcknight RN) Outcome: Patient will Verbalize a Sense of Control and/or Acceptance of the Situation (Cindy Mcknight RN) Outcome: Patient will Identify and Utilize Support Person (Cindy Mcknight RN) Knowledge Deficit State: Risk For (Cindy Mcknight RN) Related To: Labor and Delivery Process; Treatment and Procedures; Impending Alterations in Family Dynamics; Feeding and Infant Care; Community Resources and Available Support Mechanisms (Cindy Mcknight RN) Goal(s): Patient will Accurately Verbalize Understanding of Plan of Care and Treatment; Patient and Family will Accurately Verbalize Understanding of the Disease Process (Cindy Mcknight RN) Interventions: Assess Motivation and Willingness of Patient/Family to Learn; Assess Preferred Learning Mode: One to One Instruction, Reading, Videos, Group Discussion or Demonstration; Assess Barriers to Learning: Pain, Emotional State, Language Barrier, Cognitive Impairment, Visual or Hearing Deficits; Assess Patient and Family Knowledge of Disease Process, Medications and Treatment; Discuss Therapy and/or Treatment Options, Describe Rationale Behind Management, Therapy and Treatment Recommendations; Instruct Patient and Family on Signs and Symptoms to Report; Instruct Patient and Family on Medication Effects and Side Effects; Provide Appropriate and Timely Education Using Multiple Techniques; Provide Patient and Family with Support Group Information and Resources; Give Clear and Thorough Explanations and Demonstrations (Cindy Mcknight RN) Outcome: Patient and Family will Verbalize Understanding of Condition, Treatment and Signs and Symptoms to Report (Cindy Mcknight RN) Outcome: Patient will Identify Perceived Learning Needs and Express Motivation to Learn (Cindy Mcknight RN) Outcome: Patient will Verbalize Understanding of Desired Content, and/or Performs Desired Skill Prior to Discharge (Cindy Mcknight RN) Infection State: Risk For (Cindy Mcknight RN) Related To: Surgical Procedures; Invasive Procedures; Altered Tissue Integrity (Cindy Mcknight RN) Goal(s): The Patient will be Free of Infection, Vital Signs Stable and Lab Work within Normal Parameters (Cindy Mcknight RN) Interventions: Instruct and Reinforce Proper Handwashing, Hygiene, and Care Techniques to Patient and Family; Monitor Vital Signs; Monitor Patient for the Following Signs of Infection: Fever, Abdominal Tenderness, Unusual Discharge; Monitor Aminiotic Fluid, Urine and Lochia for Color and Odor; Observe Wounds, Incisions and Invasive Line Sites for Redness, Drainage and Edema; Assess IV Sites per Hospital Policy; Monitor Lab and Test Results and Notify Provider of Abnormal Findings; Assess Nutritional Status and Promote Good Nutrition (Cindy Mcknight RN) Outcome: Patient will Remain Free of Infection (Cindy Mcknight RN) Outcome: Infection will be Recognized Early to Allow for Prompt Treatment (Cindy Mcknight RN) Outcome: Patient will have Vital Signs Within Expected Range (Cindy Mcknight RN) Fluid Volume State: Risk For (Cindy Mcknight RN) Related To: Surgical Procedures; Hemorrhage; Anesthesia (Cindy Mcknight RN) Goal(s): Patient will Achieve and Maintain a Balanced Fluid Volume Status; Hemodynamically Stable (Cindy Mcknight RN) Interventions: Monitor Vital Signs; Auscultate Breath Sounds; Monitor Patient for Skin Turgor, Mucous Membranes, Dry Skin, Weakness, Headaches and Confusion; Provide Oral Fluids as Ordered; Initiate and Maintain Intravenous Fluids as Ordered; Monitor Intake and Output as Indicated Per Patient Status; Accurately Measure Blood Loss; Monitor Lab and Test Results as Obtained and Notify Provider of Abnormal Findings; Monitor Patient's Weight (Cidny Mcknight RN) Outcome: Patient will have Clear Lung Sounds (Cindy Mcknight RN) Outcome: Patient will have Vital Signs within Expected Range (Cindy Mcknight RN) Outcome: Urine Output will be within Expected Range (Cindy Mcknight RN) Outcome: Patient will have Minimal Generalized or Upper Extremity Edema (Cindy Mcknight RN) Additional Care Plan State: Risk For (Cindy Mcknight RN) Nursing Diagnosis or r/t: (Cindy Mcknight RN) Goal(s): to breastfeed within first hour meet with lac assessment consultant (Cindy Mcknight RN) Outcome Status: Ongoing (Cindy Mcknight RN)
--- NOTE | 2016-05-13 06:01 | L&D Current Admission ---
Current Admit Datetime Report Generated by CPN: 05/13/2016 06:00 ADMISSION INFORMATION Current Admit Date/Time: 05/11/2016 15:15 (05/11/2016 15:15:Sharon Schultz RN) Reason for Admission: Onset of Labor (05/11/2016 15:15:Sharon Schultz RN) Chief Complaint: Contractions (05/11/2016 11:21:Sharon Schultz RN) EGA per Dates: 40.1 (05/11/2016 15:15:QS system process) Method of Arrival: Ambulatory (05/11/2016 15:15:Sharon Schultz RN) Admitted From: [facility] (05/11/2016 15:15:Sharon Schultz RN) Reason for Induction: Not Applicable (05/11/2016 15:15:Sharon Schultz RN) Records Available: Yes (05/11/2016 15:15:Sharon Schultz RN) General Admission Information: Reviewed (05/11/2016 15:15:Sharon Schultz RN) General Admission Reviewed By: Merlin Schultz RN (05/11/2016 15:15:Sharon Schultz RN) BELONGINGS/ADVANCED DIRECTIVES Other Belongings: see signed belonging consent (05/11/2016 15:15:Sharon Schultz RN) Disposition of Belongings: Kept with Patient (05/11/2016 15:15:Sharon Schultz RN) Advance Direct for Healthcare: No, and Wants No Information (05/11/2016 15:15:Sharon Schultz RN) Durable Power of Door Builder: No (05/11/2016 15:15:Sharon Schultz RN) Living Will: No (05/11/2016 15:15:Sharon Schultz RN) Organ Donor: Yes (05/11/2016 15:15:Sharon Schultz RN) Pt Rights Information Given: Yes (05/11/2016 15:15:Sharon Schultz RN) Pt Understands Pt Rights: Yes (05/11/2016 15:15:Sharon Schultz RN) LEARNING ASSESSMENT Knowledge Level: Understands L_D Process; Understands Care Activities; Had Pre-Hospital Education; Understands Diagnosis (05/11/2016 15:15:Sharon Schultz RN) Barriers to Learning: None (05/11/2016 15:15:Sharon Schultz RN) Learning Readiness: Motivated (05/11/2016 15:15:Sharon Schultz RN) Learns Best By: 1 to 1 Instruction (05/11/2016 15:15:Sharon Schultz RN) Learning Needs: Labor and Delivery Process; Pain Management; Symptoms to Report; Treatment Plan; Medication; Diagnosis; Nutrition; Equipment; Infant Care; Community Resources (05/11/2016 15:15:Sharon Schultz RN) DOMESTIC VIOLANCE SCREENING Dom Viol Threatened/Hurt: No (05/11/2016 15:15:Sharon Schultz RN) Hx of Abuse/Neglect past 2yrs: No (05/11/2016 15:15:Sharon Schultz RN) Feel Unsafe Going Home: No (05/11/2016 15:15:Sharon Schultz RN) Addt'l Observ Indicating Abuse: No (05/11/2016 15:15:Sharon Schultz RN) Considered Personal Harm/Suicide: No (05/11/2016 15:15:Sharon Schultz RN) NUTRITIONAL/FUNCTIONAL SCREENING Problem with Appetite >5 Days: No (05/11/2016 15:15:Shaorn Schultz RN) Chew/Swallow Difficulties: No (05/11/2016 15:15:Sharon Schultz RN) Inappropriate Wt Gain/Loss: No (05/11/2016 15:15:Sharon Schultz RN) Presence Skin Breakdown/Ulcer: No (05/11/2016 15:15:Sharon Schultz RN) Special Diet: No (05/11/2016 15:15:Sharon Schultz RN) Pt Requests Rotary Veneer Machine Operator Visit: No (05/11/2016 15:15:Sharon Schultz RN) Hx of Any of the Following?: N/A (05/11/2016 15:15:Sharon Schultz RN) New Diagnosis of: N/A (05/11/2016 15:15:Sharon Schultz RN) Requires Assist w/Ambulation: No (05/11/2016 15:15:Sharon Schultz RN) Uses Assist Device to Ambulate: No (05/11/2016 15:15:Sharon Schultz RN) Pt Requires Help w/ADL's: No (05/11/2016 15:15:Sharon Schultz RN)
--- NOTE | 2016-05-13 06:01 | L&D General Admission ---
General Admit Datetime Report Generated by CPN: 05/13/2016 06:00 INFORMATION Patient Age: 25 (04/27/2016 12:11:QS system process) EDC: 05/10/2016 00:00 (04/27/2016 12:12:Ibeth Griffin RN) : 1 (04/27/2016 12:12:Ibeth Griffin RN) Para: 0 (04/27/2016 12:12:Ibeth Griffin RN) Term: 0 (04/27/2016 12:12:Ibeth Griffin RN) : 0 (04/27/2016 12:12:Ibeth Griffin RN) Spontaneous Abortions: 0 (04/27/2016 12:12:Ibeth Griffin RN) Induced Abortions: 0 (04/27/2016 12:12:Ibeth Griffin RN) Livin (04/27/2016 12:12:Ibeth Griffin RN) Cesareans: 0 (04/27/2016 12:12:Ibeth Griffin RN) VBACs: 0 (04/27/2016 12:12:Ibeth Griffin RN) Ectopic: 0 (04/27/2016 12:12:Ibeth Griffin RN) Multiple Births: 0 (04/27/2016 12:12:Ibeth Griffin RN) Baby, Number in Womb: 1 (04/27/2016 12:12:Ibeth Griffin RN) CARE Primary Cans Vacuum Tester: [facility] (04/27/2016 12:12:Ibeth Griffin RN) Month of 1st Visit: 10/2015 (04/27/2016 12:12:Ibeth Griffin RN) Adequate Care: Yes (04/27/2016 12:12:Ibeth Griffin RN) Prepregnancy Weight (lb): 146 (04/27/2016 12:12:Ibeth Griffin RN) Prepregnancy Weight (kg): 66.4 (04/27/2016 12:12:QS system process) Height (in): 64 (05/12/2016 14:36:QS system process) ALLERGIES Medication Allergy: No (04/27/2016 12:12:Ibeth Griffin RN) Medication Allergies: No Known Allergies (05/11/2016) (05/11/2016 00:13:QS system process) Latex Allergy: No Latex Allergies (04/27/2016 12:12:Ibeth Griffin RN) Food Allergies: N/A (04/27/2016 12:12:Ibeth Griffin RN) Environmental Allergies: N/A (04/27/2016 12:12:Ibeth Griffin RN) COMMUNICATION Primary Language: Kazakh (04/27/2016 12:12:Ibeth Griffin RN) Medical Tx Preferred Language: Kazakh (04/27/2016 12:12:Ibeth Griffin RN) Communication Barrier(s): None (04/27/2016 12:12:Roxana Green RN) DEMOGRAPHICS Address: [address] [place] [id number] (05/10/2016 11:57:QS system process) Zipcode: [id number] (04/27/2016 12:11:QS system process) Home (04/27/2016 12:11:QS system process) Work (04/27/2016 12:11:QS system process) SSN: [id number] (04/27/2016 12:11:QS system process) Next of Kin Name: TRAV RAMIREZ (04/27/2016 12:11:QS system process) Next of Kin (04/27/2016 12:11:QS system process) Next of Kin Relationship: SPO (04/27/2016 12:11:QS system process) Date of : 1990 (04/27/2016 12:11:QS system process) Marital Status: (04/27/2016 12:11:QS system process) Sex: Female (04/27/2016 12:11:QS system process) Race: (04/27/2016 12:11:QS system process) Ethnicity: Non- or (04/27/2016 12:11:QS system process) Pentecostalism: Mormonism (04/27/2016 12:11:QS system process) DRUG AND ALCOHOL USE Alcohol: No (04/27/2016 12:12:Ibeth Griffin RN) Cigarettes: Never Smoker. [id number] (04/27/2016 12:12:Ibeth Griffin RN) Marijuana: No (04/27/2016 12:12:Ibeth Griffin RN) Cocaine: No (04/27/2016 12:12:Ibeth Griffin RN) Other Illicit Drugs: No (04/27/2016 12:12:Ibeth Griffin RN) VACCINE HISTORY Influenza Vaccine: No (04/27/2016 12:12:Ibeth Griffin RN) Pneumococcal Vaccine: No (04/27/2016 12:12:Ibeth Griffin RN) Tetanus Vaccine: Yes (04/27/2016 12:12:Ibeth Griffin RN) Tdap Vaccine: Yes (04/27/2016 12:12:Ibeth Griffin RN) Hepatitis B Vaccine: Uncertain (04/27/2016 12:12:Sharon Schultz RN) Home Care Giver: [employer] (04/27/2016 12:12:Sharon Schultz RN) Feeding Preference: Breast (04/27/2016 12:12:Ibeth Griffin RN) Benefit of Breast Feed Discussed: Yes (04/27/2016 12:12:Ibeth Griffin RN) Circumcision: Yes (04/27/2016 12:12:Ibeth Griffin RN) Classes Attended: No (04/27/2016 12:12:Ibeth Griffin RN) Tubal Ligation: No (04/27/2016 12:12:Ibeth rGiffin RN) Tubal Authorization Signed: N/A (04/27/2016 12:12:Ibeth Griffin RN) Consent: N/A (04/27/2016 12:12:Ibeth Griffin RN) Consent Signed: N/A (04/27/2016 12:12:Ibeth Griffin RN) Pain Management Plans: Medications; Epidural (04/27/2016 12:12:Sharon Schultz RN) Plans for Labor and Delivery: None (04/27/2016 12:12:Ibeth Griffin RN) Support Person: Travis (04/27/2016 12:12:Ibeth Griffin RN) Support Person Relationship: (04/27/2016 12:12:Ibeth Griffin RN) Cultural/Spritual Practice: No (04/27/2016 12:12:Ibeth Griffin RN) Spir/Cult Dietary Needs: No (04/27/2016 12:12:Ibeth Griffin RN) LIVING SITUATION/DISCHARGE PLAN Living Arrangements: House (04/27/2016 12:12:Ibeth Griffin RN) Adequate Access to:: Electric; Heat; Refrigeration; Plumbing/Running water; Phone; Transportation (04/27/2016 12:12:Ibeth Griffin RN) WIC Program: Yes (04/27/2016 12:12:Ibeth Griffin RN) Discharge [employer] Apprentice Person: (04/27/2016 12:12:Ibeth Griffin RN) Person to Help after Discharge: (04/27/2016 12:12:Ibeth Griffin RN) Currently Using Commun Resources: Yes (04/27/2016 12:12:Ibeth Griffin RN) Specify Current Resource Used: Medicaid (04/27/2016 12:12:Ibeth Griffin RN) Outside Agency/Disaster Recovery Manager: No (04/27/2016 12:12:Ibeth Griffin RN) Car Seat for Discharge: Yes (04/27/2016 12:12:Ibeth Griffin RN) Adoption Requested: No (04/27/2016 12:12:Ibeth Griffin RN) Pt Contact w/infant Post : N/A (04/27/2016 12:12:Ibeth Griffin RN) LABS Blood Type: O Positive (04/27/2016 12:12:Ibeth Griffin RN) Antibody Screen: Negative (04/27/2016 12:12:Ibeth Griffin RN) Rho(G) this : Not Applicable (04/27/2016 12:12:Ibeth Griffin RN) Hemoglobin: 10.0 L (05/12/2016 07:33:QS system process) Hematocrit: 29.2 L (05/12/2016 07:33:QS system process) MCV: 91 (05/12/2016 07:33:QS system process) Group Beta Strep: Negative (04/27/2016 12:12:Ibeth Griffin RN) Gonorrhea: Negative (04/27/2016 12:12:Ibeth Griffin RN) Chlamydia: Negative (04/27/2016 12:12:Ibeth Griffin RN) RPR/VDRL: Nonreactive (04/27/2016 12:12:Ibeth Griffin RN) HIV Exposure Test: Negative (04/27/2016 12:12:Ibeth Griffin RN) Hepatitis B: Negative (04/27/2016 12:12:Ibeth Griffin RN) Rubella: Immune (04/27/2016 12:12:Ibeth Griffin RN) OB/PREVIOUS HISTORY Current Procedures: Ultrasound; NST (04/27/2016 12:12:Sharon Schultz RN) History of Previous : No (04/27/2016 12:12:Ibeth Griffin RN) History of Gestational Diabetes: No (04/27/2016 12:12:Ibeth Griffin RN) History of PIH: No (04/27/2016 12:12:Ibeth Griffin RN) History of Incompetent Cervix: No (04/27/2016 12:12:Ibeth Griffin RN) History of Placenta Previa/Abrup: No (04/27/2016 12:12:Ibeth Griffin RN) History of Macrosomia: No (04/27/2016 12:12:Ibeth Griffin RN) History of IUGR: No (04/27/2016 12:12:Ibeth Griffin RN) History of Hemorrhage: No (04/27/2016 12:12:Ibeth Griffin RN) History of Loss/Stillborn: No (04/27/2016 12:12:Ibeth Griffin RN) History of : No (04/27/2016 12:12:Ibeth Griffin RN) History of D (Rh) Sensitization: No (04/27/2016 12:12:Ibeth Griffin RN) History Recurrent Loss/Stillborn: No (04/27/2016 12:12:Ibeth Griffin RN) History Depression/PP Depression: No (04/27/2016 12:12:Ibeth Griffin RN) History of Uterine Anomaly/VALERIA: No (04/27/2016 12:12:Ibeth Griffin RN) History of Infertility: No (04/27/2016 12:12:Ibeth Griffin RN) History of ART Treatment: No (04/27/2016 12:12:Ibeth Griffin RN) History of VALERIA: No (04/27/2016 12:12:Ibeth Griffin RN) Comments Obstetrical History: G1: Current (04/27/2016 12:12:Ibeth Griffin RN) MEDICAL HISTORY Med Hx Diabetes: No (04/27/2016 12:12:Ibeth Griffin RN) Med Hx Hypertension: No (04/27/2016 12:12:Ibeth Griffin RN) Med Hx Heart Disease: No (04/27/2016 12:12:Ibeth Griffin RN) Med Hx Autoimmune Disorder: No (04/27/2016 12:12:Ibeth Griffin RN) Med Hx Kidney Disease/UTI: No (04/27/2016 12:12:Ibeth Griffin RN) Med Hx Neurologic/Epilepsy: No (04/27/2016 12:12:Ibeth Griffin RN) Med Hx Psychiatric Disorders: No (04/27/2016 12:12:Ibeth Griffin RN) Med Hx Hepatitis/Liver Disease: No (04/27/2016 12:12:Ibeth Griffin RN) Med Hx Varicosities/Phlebitis: No (04/27/2016 12:12:Ibeth Griffin RN) Med Hx Thyroid Dysfunction: No (04/27/2016 12:12:Ibeth Griffin RN) Med Hx Trauma/Violence: No (04/27/2016 12:12:Ibeth Griffin RN) Med Hx Blood Transfusion: No (04/27/2016 12:12:Ibeth Griffin RN) Med Hx Pulmonary (Asthma,TB): No (04/27/2016 12:12:Ibeth Griffin RN) Med Hx Breast: No (04/27/2016 12:12:Ibeth Griffin RN) Med Hx COTTON CLASSER Surgery: No (04/27/2016 12:12:Ibeth Griffin RN) Med Hx Hospitalization/Surgery: No (04/27/2016 12:12:Ibeth Griffin RN) Med Hx Anesthetic Complications: No (04/27/2016 12:12:Ibeth Griffin RN) Med Hx Abnormal Pap Smear: No (04/27/2016 12:12:Ibeth Griffin RN) Other Medical Diseases: No (04/27/2016 12:12:Ibeth Griffin RN) Med Hx Significant Family Hx: No (04/27/2016 12:12:Ibeth Griffin RN) INFECTIOUS HISTORY Inf Hx Gonorrhea: No (04/27/2016 12:12:Ibeth Griffin RN) Inf Hx Chlamydia: No (04/27/2016 12:12:Ibeth Griffin RN) Inf Hx Syphilis: No (04/27/2016 12:12:Ibeth Griffin RN) Inf Hx HIV/AIDS: No (04/27/2016 12:12:Ibeth Griffin RN) Inf Hx Human Papilloma Virus: No (04/27/2016 12:12:Ibeth Griffin RN) Inf Hx Pt/Partner Genital Herpes: No (04/27/2016 12:12:Ibeth Griffin RN) Inf Hx Tuberculosis/Exposure: No (04/27/2016 12:12:Ibeth Griffin RN) Inf Hx Hepatitis B,C: No (04/27/2016 12:12:Ibeth Griffin RN) Inf Hx Rash or Viral Illness: No (04/27/2016 12:12:Ibeth Griffin RN) GENETIC HISTORY Gen Hx Age >=35 at SARA: No (04/27/2016 12:12:Ibeth Griffin RN) Gen Hx Thalassemia: No (04/27/2016 12:12:Ibeth Griffin RN) Gen Hx Congenital Heart Defect: No (04/27/2016 12:12:Ibeth Griffin RN) Gen Hx Neural Tube Defect: No (04/27/2016 12:12:Ibeth Griffin RN) Gen Hx Down's Syndrome: No (04/27/2016 12:12:Ibeth Griffin RN) Gen Hx Sergio-Sachs: No (04/27/2016 12:12:Ibeth Griffin RN) Gen Hx Geovanna: No (04/27/2016 12:12:Ibeth Griffin RN) Gen Hx Familial Dysautonomia: No (04/27/2016 12:12:Ibeth Griffin RN) Gen Hx Sickle Cell Disease/Trait: No (04/27/2016 12:12:Ibeth Griffin RN) Gen Hx Hemophilia/Blood Disorder: No (04/27/2016 12:12:Ibeth Griffin RN) Gen Hx Muscular Dystrophy: No (04/27/2016 12:12:Ibeth Griffin RN) Gen Hx Cystic Fibrosis: No (04/27/2016 12:12:Ibeth Griffin RN) Gen Hx Huntingtons Chorea: No (04/27/2016 12:12:Ibeth Griffin RN) Gen Hx Mental Retardation/Autism: No (04/27/2016 12:12:Ibeth Griffin RN) Gen Hx Tested for Fragile X: No (04/27/2016 12:12:Ibeth Griffin RN) Gen Hx Other Inher/Chromosomal: No (04/27/2016 12:12:Ibeth Griffin RN) Gen Hx Maternal Metabolic DO: No (04/27/2016 12:12:Ibeth Griffin RN) Gen Hx Pt Father or FOB Defect: No (04/27/2016 12:12:Ibeth Griffin RN) Gen Hx Other Genetic History: No (04/27/2016 12:12:Ibeth Griffin RN) Gen Hx Drugs/Meds since LMP: No (04/27/2016 12:12:Ibeth Griffin RN)
[2016-05-13] MEDS: IBUPROFEN 800 MG TABLET PO SCH ×2 (06:05→13:50)
--- NOTE | 2016-05-13 06:16 | L&D Care Plan ---
LD CARE PLANS Datetime Report Generated by CPN: 05/13/2016 06:15 Datetime: 05/11/2016 22:11 State: Risk For (Cindy Mcknight RN) Related To: Labor and Delivery Process; Treatment and Procedures; Post (Cindy Mcknight RN) Goal(s): Patients Pain will be Assessed and Managed; Patient will Verbalize Adequate Relief of Pain or the Ability to [place] with Current Pain (Cindy Mcknight RN) Interventions: Assess Pain Severity on Scale of 0 (None) to 5 (Severe); Assess Type, Location and Intensity of Pain Each Time Client Reports Discomfort and Notify Provider if Unusal Pain Develops; Encourage Proper Breathing and Relaxation Techniques; Offer Alternatives Such as Repositioning, Calm Environment, Massages, Diversional Activities, Ice Pack, Splinting, and Ambulation; Administer Analgesics as Ordered; Assist with Epidural Placement as Appropriate; Evaluate Therapeutic Effectiveness of Medication and Treatments (Cindy Mcknight RN) Outcome: Patient will Report Absence or Relief of Pain Consistent with Established Pain Goal (Cindy Mcknight RN) Outcome: Patient will have a Decrease in Signs and Symptoms of Discomfort (Cindy Mcknight RN) Outcome: Pain will be Controlled During Procedures (Cindy Mcknight RN) State: Risk For (Cindy Mcknight RN) Related To: Labor and Delivery Process; Situational Crisis; Medical Interventions; Significant Life Event (Cindy Mcknight RN) Goal(s): Patient will have Decreased Anxiety and be able to Function at Acceptable Levels (Cindy Mcknight RN) Interventions: Assess Verbal and Nonverbal Behavioral Indicators of Anxiety; Assist Patient to Identify and Verbalize Symptoms of Anxiety; Identify and Demonstrate Techniques to Control Anxiety; Assist Patient with Coping Mechanisms to Manage Anxiety; Provide Theraputic Touch for the Patient; Explain to Patient, Using a Calm Reassuring Approach and Nonmedical Terms, All Activities, Procedures, and Concerns; Instruct Patient and Family about Post Discharge Care, Limitations, Symptoms to Report and Resources Available (Cindy Mcknight RN) Outcome: Patient will Identify, Verbalize and Demonstrate Techniques to Control Anxiety (Cindy Mcknight RN) Outcome: Patient's Posture, Facial Expressions, Gestures and Activity Level will Reflect Decreased Anxiety (Cindy Mcknight RN) Outcome: Patient will Verbalize a Sense of Control and/or Acceptance of the Situation (Cindy Mcknight RN) Outcome: Patient will Identify and Utilize Support Person (Cindy Mcknight RN) State: Risk For (Cindy Mcknight RN) Related To: Labor and Delivery Process; Treatment and Procedures; Impending Alterations in Family Dynamics; Feeding and Care; Community Resources and Available Support Mechanisms (Cindy Mcknight RN) Goal(s): Patient will Accurately Verbalize Understanding of Plan of Care and Treatment; Patient and Family will Accurately Verbalize Understanding of the Disease Process (Cindy Mcknight RN) Interventions: Assess Motivation and Willingness of Patient/Family to Learn; Assess Preferred Learning Mode: One to One Instruction, Reading, Videos, Group Discussion or Demonstration; Assess Barriers to Learning: Pain, Emotional State, Language Barrier, Cognitive Impairment, Visual or Hearing Deficits; Assess Patient and Family Knowledge of Disease Process, Medications and Treatment; Discuss Therapy and/or Treatment Options, Describe Rationale Behind Management, Therapy and Treatment Recommendations; Instruct Patient and Family on Signs and Symptoms to Report; Instruct Patient and Family on Medication Effects and Side Effects; Provide Appropriate and Timely Education Using Multiple Techniques; Provide Patient and Family with Support Group Information and Resources; Give Clear and Thorough Explanations and Demonstrations (Cindy Mcknight RN) Outcome: Patient and Family will Verbalize Understanding of Condition, Treatment and Signs and Symptoms to Report (Cindy Mcknight RN) Outcome: Patient will Identify Perceived Learning Needs and Express Motivation to Learn (Cindy Mcknight RN) Outcome: Patient will Verbalize Understanding of Desired Content, and/or Performs Desired Skill Prior to Discharge (Cindy Mcknight RN) State: Risk For (Cindy Mcknight RN) Related To: Surgical Procedures; Invasive Procedures; Altered Tissue Integrity (Cindy Mcknight RN) Goal(s): The Patient will be Free of Infection, Vital Signs Stable and Lab Work within Normal Parameters (Cindy Mcknight RN) Interventions: Instruct and Reinforce Proper Handwashing, Hygiene, and Care Techniques to Patient and Family; Monitor Vital Signs; Monitor Patient for the Following Signs of Infection: Fever, Abdominal Tenderness, Unusual Discharge; Monitor Aminiotic Fluid, Urine and Lochia for Color and Odor; Observe Wounds, Incisions and Invasive Line Sites for Redness, Drainage and Edema; Assess IV Sites per Hospital Policy; Monitor Lab and Test Results and Notify Provider of Abnormal Findings; Assess Nutritional Status and Promote Good Nutrition (Cindy Mcknight RN) Outcome: Patient will Remain Free of Infection (Cindy Mcknight RN) Outcome: Infection will be Recognized Early to Allow for Prompt Treatment (Cindy Mcknight RN) Outcome: Patient will have Vital Signs Within Expected Range (Cindy Mcknight RN) State: Risk For (Cindy Mcknight RN) Related To: Surgical Procedures; Hemorrhage; Anesthesia (Cindy Mcknight RN) Goal(s): Patient will Achieve and Maintain a Balanced Fluid Volume Status; Hemodynamically Stable (Cindy Mcknight RN) Interventions: Monitor Vital Signs; Auscultate Breath Sounds; Monitor Patient for Skin Turgor, Mucous Membranes, Dry Skin, Weakness, Headaches and Confusion; Provide Oral Fluids as Ordered; Initiate and Maintain Intravenous Fluids as Ordered; Monitor Intake and Output as Indicated Per Patient Status; Accurately Measure Blood Loss; Monitor Lab and Test Results as Obtained and Notify Provider of Abnormal Findings; Monitor Patient's Weight (Cindy Mcknight RN) Outcome: Patient will have Clear Lung Sounds (Cindy Mcknight, RN) Outcome: Patient will have Vital Signs within Expected Range (Cindy Mcknight RN) Outcome: Urine Output will be within Expected Range (Cindy Mcknight RN) Outcome: Patient will have Minimal Generalized or Upper Extremity Edema (Cindy Mcknight RN) State: Risk For (Cindy Mcknight RN) Nursing Diagnosis or r/t: (Cindy Mcknight RN) Goal(s): to breastfeed within first hour meet with [facility] etl consultant (Cindy Mcknight RN) Outcome Status: Ongoing (Cindy Mcknight RN)
[2016-05-13 09:10] VITALS: BP 111/59
[2016-05-13] MEDS: DOCUSATE SODIUM 100 MG CAPSULE PO SCH ×2 (11:07→17:34)
[2016-05-13] MEDS: FAMOTIDINE 20 MG TABLET PO SCH (11:09)
[2016-05-13] MEDS: FERROUS SULFATE 325 MG TABLET PO SCH ×2 (11:09→17:35)
[2016-05-13] MEDS: PRENATAL VITAMIN W-O CA NO5/FE FUMARATE/FA CAPSULE PO SCH (11:10)
[2016-05-13] MEDS: SENNOSIDES/DOCUSATE 8.6-50 MG 1 EACH TABLET PO SCH (11:11)
--- NOTE | 2016-05-13 13:29 | PDOC DISCHARGE SUMMARY ---
Final Diagnosis Discharge Date: 05/13/16 - Final Diagnosis (1) Gestational hypertension Is this a current diagnosis for this admission?: Yes (2) Normal vaginal delivery Is this a current diagnosis for this admission?: Yes Discharge Data - Discharge Medication Home Medications: Vit/Iron Fumarate/FA [ Tablet] 1 tab PO DAILY 04/27/16 Reason(s) for Admission: Induction of Labor Procedures: None Intrapartum Procedure(s): Spontaneous Vaginal Delivery Complication(s): Laceration-Labial - Diagnosis Test Laboratory: Temp Pulse Resp BP Pulse Ox 98.5 F 104 H 18 111/59 L 100 05/13/16 09:59 05/13/16 09:59 05/13/16 09:59 05/13/16 08:20 05/13/16 09:59 05/11/16 05/11/16 05/12/16 11:14 16:39 07:33 RBC 3.89 3.23 L Hgb 11.8 L 10.0 L Hct 34.9 L 29.2 L Urine Opiates Screen NEGATIVE - Discharge information/Instructions Discharge Activity: Activity As Tolerated, No Lifting Over 10 Pounds, Pelvic Rest, No tub bath Discharge Diet: Regular Disposition: HOME, SELF-CARE Follow up with: [facility] in: 4
== END 2016-05-13 21:50 | disposition home or self-care (01) | DRG 775 ==
LOC: LC 10:53 → LR 15:17 → 2S 05-12 00:08
PROVIDERS: ADMIT Obstetrics & Gynecology; ATTEND Obstetrics & Gynecology
PROC: 10E0XZZ Delivery of Products of Conception, External Approach (ICD-10-PCS; principal; 2016-05-11)
PROC: 0HQ9XZZ Repair Perineum Skin, External Approach (ICD-10-PCS; 2016-05-11)
PROC: 4A1HXCZ Monitoring of Products of Conception, Cardiac Rate, External Approach (ICD-10-PCS; 2016-05-11)
PROC: 10907ZC Drainage of Amniotic Fluid, Therapeutic from Products of Conception, Via Natural or Artificial Opening (ICD-10-PCS; 2016-05-11)
DX: O13.4 Gestational [pregnancy-induced] hypertension without significant proteinuria, complicating childbirth (principal); O69.81X0 Labor and delivery complicated by cord around neck, without compression, not applicable or unspecified; O76 Abnormality in fetal heart rate and rhythm complicating labor and delivery; O70.0 First degree perineal laceration during delivery; O77.0 Labor and delivery complicated by meconium in amniotic fluid; Z3A.40 40 weeks gestation of pregnancy; Z37.0 Single live birth
CPT/HCPCS: 36415; 80053; 80307; 81005; 83615; 84550; 85025; 85027; 86592; 86850; 86900; 86901; 94760; J2370; J2590; J3010; J3490